=== PATIENT | female | born 1945 | race Caucasian/White ===

== ENCOUNTER 2019-04-09 14:27 | Emergency (ER) | payer MEDICARE ==
--- NOTE | 2019-04-09 16:55 | EDM.PDOC ---
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 Lower Back Pain Score (Numeric/FACES): 8 - Related Data Allergies Allergy/AdvReac Type Severity Reaction Status Date / Time No Known Allergies Allergy Verified 04/09/19 15:25 Home Meds: Home Meds Calcium Carb & Citrate/Vit D3 [Calcium + D3 ER Tablet] 600 mg PO BID 04/09/19 [ History] Etanercept [Enbrel] 50 mg SQ ASDIRECTED 04/09/19 [History] Losartan [Cozaar] 50 mg PO DAILY 04/09/19 [History] Methotrexate 4 tab PO Q7D 04/09/19 [History] Omeprazole 40 mg PO BIDAC 04/09/19 [History] Propranolol [Inderal] 40 mg PO BID 04/09/19 [History] Sennosides [Senna] 8.6 mg PO DAILY 04/09/19 [History] Past Medical History HEENT History: Reports: Impaired Vision Cardiovascular History: Reports: Hypertension Respiratory History: Reports: None Gastrointestinal History: Reports: Chronic Constipation, GERD Genitourinary History: Reports: None 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: , 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 Musculoskeletal History: Reports: RA Hematologic History: Reports: Blood Transfusion(s) Immunologic History: Reports: Other (See Below) Other Immunologic History: RA Oncologic (Cancer) History: Reports: Lung - Past Surgical History Head Surgeries/Procedures: Reports: None HEENT Surgical History: Reports: Other (See Below) Other HEENT Surgeries/Procedures: eye injections Cardiovascular Surgical History: Reports: None Respiratory Surgical History: Reports: Other (See Below) Other Respiratory Surgeries/Procedures: left lung removed 2010 Musculoskeletal Surgical History: Reports: Other (See Below) Other Musculoskeletal Surgeries/Procedures:: left leg, pelvis, Oncologic Surgical History: Reports: Lobectomy Dermatological Surgical History: Reports: None Social & Family History - Tobacco Use Smoking Status *Q: Former Smoker Used Tobacco, but Quit: Yes Month/Year Tobacco Last Used: 1987 - Caffeine Use Caffeine Use: Reports: Coffee - Recreational Drug Use Recreational Drug Use: No ED ROS GENERAL - Review of Systems Review Of Systems: See Below Constitutional: Reports: No Symptoms HEENT: Reports: No Symptoms Respiratory: Reports: No Symptoms Cardiovascular: Reports: No Symptoms Endocrine: Reports: No Symptoms GI/Abdominal: Reports: No Symptoms : Reports: No Symptoms Musculoskeletal: Reports: Back Pain Skin: Reports: No Symptoms Neurological: Reports: No Symptoms Psychiatric: Reports: No Symptoms Hematologic/Lymphatic: Reports: No Symptoms Immunologic: Reports: No Symptoms ED EXAM,LOWER BACK PAIN/INJURY - Physical Exam Exam: See Below Exam Limited By: No Limitations General Appearance: Alert Ears: Normal External Exam Nose: Normal Inspection Throat/Mouth: Normal Inspection Head: Atraumatic Neck: Normal Inspection Respiratory/Chest: No Respiratory Distress, Lungs Clear Cardiovascular: Regular Rate, Rhythm GI/Abdominal: Non-Tender (Female) Exam: Deferred Rectal (Female) Exam: Deferred Back Exam: Decreased Range of Motion, Muscle Spasm Extremities: Normal Inspection, Other (straight leg lifting) DTR - Lower Extremities: 2+: Knee (R), Knee (L) Course - Vital Signs Last Recorded V/S: Last Vital Signs Temp 35.9 C 04/09/19 15:26 Pulse 69 04/09/19 15:26 Resp 16 04/09/19 15:26 BP 173/59 H 04/09/19 15:26 Pulse Ox 96 04/09/19 15:26 Departure - Departure Time of Disposition: 17:00 Disposition: Home, Self-Care 01 Condition: Good Clinical Impression: Sciatica - Discharge Information Referrals: PCP,None [Primary Care Provider] - Forms: ED Department Discharge Additional Instructions: avoid lifting until better.
== END 2019-04-09 17:16 | disposition home or self-care (01) ==
LOC: JP.ED 14:27
DX: M54.40 Lumbago with sciatica, unspecified side (principal); I10 Essential (primary) hypertension; K21.9 Gastro-esophageal reflux disease without esophagitis; Z87.891 Personal history of nicotine dependence; Z79.899 Other long term (current) drug therapy
CPT/HCPCS: 99282; 99283

== ENCOUNTER 2020-04-06 08:24 | Emergency (ER) | payer MEDICARE ==
[2020-04-06] MEDS ORDERED: Ondansetron 4 MG/2 ML SDV IVPUSH ONE (08:32)
[2020-04-06] MEDS ORDERED: Aspirin 81 MG Tab.Chew PO ONE (08:32)
[2020-04-06] MEDS ORDERED: Famotidine 20 MG Tab PO ONE (08:34)
--- NOTE | 2020-04-06 08:49 | EDM.PDOC ---
ED HPI GENERAL MEDICAL PROBLEM - General Chief Complaint: Chest Pain Stated Complaint: CHEST PAIN, NUMB L ARM, VOMITING Time Seen by Provider: 04/06/20 08:45 Source of Information: Reports: Patient, Family History Limitations: Reports: No Limitations - History of Present Illness INITIAL COMMENTS - FREE TEXT/NARRATIVE: Pt woke up vomiting and she then developed severe burning in her upper abdoman and chest. She did have pain down the left arm. She has no cardiac histort. She has a history of hypertension. pt is sob. She has not hadf pain like this in the past. Onset: Today, Sudden Duration: Hour(s): Location: Reports: Chest Associated Symptoms: Reports: Chest Pain, Nausea/Vomiting, Weakness - Related Data Allergies Allergy/AdvReac Type Severity Reaction Status Date / Time No Known Allergies Allergy Verified 04/06/20 08:45 Home Meds: Home Meds Calcium Carb, Citrate/Vit D3 [Calcium + D3 ER Tablet] 600 mg PO BID 04/09/19 [History] Etanercept [Enbrel] 50 mg SQ ASDIRECTED 04/09/19 [History] Losartan [Cozaar] 50 mg PO DAILY 04/09/19 [History] Methotrexate 4 tab PO Q7D 04/09/19 [History] Omeprazole 40 mg PO BIDAC 04/09/19 [History] Propranolol [Inderal] 40 mg PO BID 04/09/19 [History] Past Medical History HEENT History: Reports: Impaired Vision Cardiovascular History: Reports: Hypertension Respiratory History: Reports: None Gastrointestinal History: Reports: Chronic Constipation, GERD Genitourinary History: Reports: None 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: , 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 Musculoskeletal History: Reports: RA Hematologic History: Reports: Blood Transfusion(s) Immunologic History: Reports: Other (See Below) Other Immunologic History: RA Oncologic (Cancer) History: Reports: Lung - Past Surgical History Head Surgeries/Procedures: Reports: None HEENT Surgical History: Reports: Other (See Below) Other HEENT Surgeries/Procedures: eye injections Cardiovascular Surgical History: Reports: None Respiratory Surgical History: Reports: Other (See Below) Other Respiratory Surgeries/Procedures: left lung removed 2010 Musculoskeletal Surgical History: Reports: Other (See Below) Other Musculoskeletal Surgeries/Procedures:: left leg, pelvis, Oncologic Surgical History: Reports: Lobectomy Dermatological Surgical History: Reports: None Social & Family History - Caffeine Use Caffeine Use: Reports: Coffee ED ROS GENERAL - Review of Systems Review Of Systems: See Below Constitutional: Reports: No Symptoms HEENT: Reports: No Symptoms Respiratory: Reports: Shortness of Breath Cardiovascular: Reports: Chest Pain, Lightheadedness Endocrine: Reports: No Symptoms GI/Abdominal: Reports: Nausea, Vomiting : Reports: No Symptoms Musculoskeletal: Reports: No Symptoms Skin: Reports: No Symptoms ED EXAM, GENERAL - Physical Exam Exam: See Below Free Text/Narrative:: pt woke up vomiting and she then developed burning chest pain and was sob. She had pain in the left arm. Exam Limited By: No Limitations General Appearance: Alert, Anxious, Moderate Distress, Other (pt is pale and is still uncomfortable. ) Ears: Normal TMs Nose: Normal Inspection Throat/Mouth: Normal Inspection Head: Atraumatic Neck: Normal Inspection Respiratory/Chest: No Respiratory Distress Cardiovascular: Regular Rate, Rhythm GI/Abdominal: Soft, Tender, Other (pt has epigastric tenderness) (Female) Exam: Deferred Rectal (Female) Exam: Deferred Back Exam: Normal Inspection Extremities: Normal Inspection Neurological: Alert, Oriented, Normal Cognition, Other (pt is very ) Psychiatric: Anxious Course - Vital Signs Last Recorded V/S: Last Vital Signs Temp 35.6 C L 04/06/20 08:30 Pulse 74 04/06/20 08:30 Resp 24 H 04/06/20 08:30 BP 174/83 H 04/06/20 08:30 Pulse Ox 95 04/06/20 08:30 - Orders/Labs/Meds Orders: Active Orders 24 hr Category Date Time Status EKG Documentation Completion [RC] ASDIRECTED Care 04/06/20 08:33 Active EKG Documentation Completion [RC] ASDIRECTED Care 04/06/20 08:34 Active Chest 1V Frontal [CR] Stat Exams 04/06/20 08:34 Ordered COMPREHENSIVE METABOLIC PN,CMP [CHEM] Urgent Lab 04/06/20 08:43 Received INR,PT,PROTHROMBIN TIME [COAG] Stat Lab 04/06/20 08:47 Ordered PTT,PARTIAL THROMBOPLSTIN TIME [COAG] Stat Lab 04/06/20 08:48 Ordered TROPONIN I [CHEM] Stat Lab 04/06/20 08:47 Ordered Nitroglycerin [Nitrostat] Med 04/06/20 08:33 Active 0.4 mg SL Q5M PRN EKG 12 Lead [EK] Routine Ther 04/06/20 08:33 Ordered EKG 12 Lead [EK] Routine Ther 04/06/20 08:33 Ordered Medication Orders Nitroglycerin (Nitrostat) 0.4 mg SL Q5M PRN PRN Reason: Chest Pain Labs: Laboratory Tests 04/06/20 Range/Units 08:43 WBC 12.3 H (4.5-11.0) K/uL RBC 4.48 (3.30-5.50) M/uL Hgb 14.9 (12.0-15.0) g/dL Hct 45.0 (36.0-48.0) % MCV 100 H (80-98) fL MCH 33 H (27-31) pg MCHC 33 (32-36) % Plt Count 220 (150-400) K/uL Neut % (Auto) 67 H (36-66) % Lymph % (Auto) 21 L (24-44) % Miller % (Auto) 10 H (2-6) % Eos % (Auto) 2 (2-4) % Baso % (Auto) 1 (0-1) % Meds: Medications Generic Name Dose Route Start Last Admin Trade Name Freq PRN Reason Stop Dose Admin Nitroglycerin 0.4 mg 04/06/20 08:33 Nitrostat SL Q5M PRN Chest Pain Discontinued Medications Generic Name Dose Route Start Last Admin Trade Name Freq PRN Reason Stop Dose Admin Aspirin 324 mg 04/06/20 08:32 Aspirin PO 04/06/20 08:33 ONETIME ONE Famotidine 20 mg 04/06/20 08:34 Pepcid PO 04/06/20 08:35 ONETIME ONE Ondansetron HCl 4 mg 04/06/20 08:32 Zofran IVPUSH 04/06/20 08:33 ONETIME ONE - Re-Assessments/Exams Free Text/Narrative Re-Assessment/Exam: 04/06/20 09:11 pt had a chest xray and the rt lung looks good. She was given 2 nitro with no relief of her pain. She was given dilaudid .5 iv and this will be repested on the way out. She was given a 4000 heparin bolus. She was given brilinta 180mg. Pt was given asa. Pt did continue to have pain so a second .5 of dilaudid will be given. Departure - Departure Time of Disposition: 09:15 Disposition: DC/Tfer to Acute Hospital 02 Reason for Transfer *Q: Primary PCI Indicated Condition: Fair Clinical Impression: Acute PA, lateral wall, Lung cancer Referrals: Hiwot Bishop MD [Primary Care Provider] - Forms: ED Department Discharge Care Plan Goals: transfer to [facility] per [facility]. Sepsis Event Note (ED) - Focused Exam Vital Signs: Vital Signs Temp Pulse Resp BP Pulse Ox 04/06/20 08:30 35.6 C L 74 24 H 174/83 H 95 - My Orders Last 24 Hours: My Active Orders 04/06/20 08:33 EKG Documentation Completion [RC] ASDIRECTED Nitroglycerin [Nitrostat] 0.4 mg SL Q5M PRN EKG 12 Lead [EK] Routine EKG 12 Lead [EK] Routine 04/06/20 08:34 EKG Documentation Completion [RC] ASDIRECTED Chest 1V Frontal [CR] Stat 04/06/20 08:43 COMPREHENSIVE METABOLIC PN,CMP [CHEM] Urgent - Assessment/Plan Last 24 Hours: My Active Orders 04/06/20 08:33 EKG Documentation Completion [RC] ASDIRECTED Nitroglycerin [Nitrostat] 0.4 mg SL Q5M PRN EKG 12 Lead [EK] Routine EKG 12 Lead [EK] Routine 04/06/20 08:34 EKG Documentation Completion [RC] ASDIRECTED Chest 1V Frontal [CR] Stat 04/06/20 08:43 COMPREHENSIVE METABOLIC PN,CMP [CHEM] Urgent
[2020-04-06] MEDS: Nitroglycerin 0.4 MG Tab.SL SL PRN ×2 (08:50→09:05)
[2020-04-06] MEDS ORDERED: Heparin Sodium 5,000 Units/ML Vial IVPUSH ONE (08:55)
[2020-04-06] MEDS ORDERED: Ticagrelor 90 MG Tab PO ONE (08:56)
[2020-04-06] MEDS ORDERED: Sodium Chloride 0.9% 1,000 ML IV SCH (09:00)
[2020-04-06] MEDS ORDERED: HYDROmorphone 0.5 MG/0.5 ML Syringe IVPUSH ONE ×2 (09:01→09:03)
[2020-04-06] MEDS ORDERED: HYDROmorphone 0.5 MG/0.5 ML Syringe ONE (09:02)
--- NOTE | 2020-04-06 09:13 | CR ---
CHEST: 04/06/2020 at 9:00 AM CLINICAL HISTORY:Chest pain COMPARISON:CT 10/11/2019 FINDINGS: Patient is status post the left pneumonectomy. There is shift of the mediastinum and right lung to the left. Appearance is similar to the September study. There is some minimal patchy density in the right infrahilar region. This may represent some scarring or atelectasis. There is a granuloma in the right upper lobe. IMPRESSION: Previous left pneumonectomy Minimal right infrahilar patchy density. This may be superimposition of the parietal structures. Minimal infiltrate is not excluded.
== END 2020-04-06 09:10 ==
LOC: JP.ED 08:24
DX: I21.9 Acute myocardial infarction, unspecified (principal); C34.90 Malignant neoplasm of unspecified part of unspecified bronchus or lung; I10 Essential (primary) hypertension; Z79.899 Other long term (current) drug therapy; K21.9 Gastro-esophageal reflux disease without esophagitis
CPT/HCPCS: 36415; 71045; 80053; 84484; 85025; 85610; 85730; 93005; 96374; 96375; 99285; A9270; J1170; J1644; J2405; J7030

== ENCOUNTER 2020-04-12 05:14 | Inpatient (IN) | payer MEDICARE ==
[2020-04-12] MEDS ORDERED: Acetaminophen 500 MG Tab PO ONE (05:41)
--- NOTE | 2020-04-12 05:43 | EDM.PDOC ---
ED HPI GENERAL MEDICAL PROBLEM - General Chief Complaint: Fever Stated Complaint: MEDICAL VIA [facility] Time Seen by Provider: 04/12/20 05:25 Source of Information: Reports: Patient, EMS, Family History Limitations: Reports: No Limitations - History of Present Illness INITIAL COMMENTS - FREE TEXT/NARRATIVE: 75-year-old female who was just discharged from the hospital yesterday after receiving 4 stents from acute treatment for an IL, only has a right lung due to lung cancer. She was doing well but ate some chocolate and a part of a sandwich last evening and did choke and cough a few times. Overnight she developed a fever and increasing shortness of breath and still has a dry cough. Ambulance was called because she spiked a fever, has nausea and vomiting and needed to be evaluated. No chest pain. Denies a headache or sore throat. EKG done by EMS in route shows no acute findings, there is some abnormality in polarity due to the significant shift of her anatomy due to the left pneumonectomy 10 years ago. Onset: Gradual (Symptoms developed over the last 6 to 7 hours) Associated Symptoms: Reports: Cough, Fever/Chills, Malaise, Nausea/Vomiting, Shortness of Breath, Weakness denies pain Pain Score (Numeric/FACES): 0 - Related Data Allergies Allergy/AdvReac Type Severity Reaction Status Date / Time No Known Allergies Allergy Verified 04/12/20 05:24 Home Meds: Home Meds Calcium Carb, Citrate/Vit D3 [Calcium + D3 ER Tablet] 600 mg PO BID 04/09/19 [History] Etanercept [Enbrel] 50 mg SQ ASDIRECTED 04/09/19 [History] Methotrexate 4 tab PO Q7D 04/09/19 [History] Omeprazole 40 mg PO BIDAC 04/09/19 [History] Metoprolol Succinate 25 mg PO DAILY 04/12/20 [History] Ticagrelor [Brilinta] 90 mg PO BID 04/12/20 [History] lisinopriL [Lisinopril] 5 mg PO DAILY 04/12/20 [History] Past Medical History HEENT History: Reports: Impaired Vision Cardiovascular History: Reports: Hypertension Respiratory History: Reports: None Other Respiratory History: states left lung removal Gastrointestinal History: Reports: Chronic Constipation, GERD Genitourinary History: Reports: None 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: , 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 Musculoskeletal History: Reports: RA Hematologic History: Reports: Blood Transfusion(s) Immunologic History: Reports: Other (See Below) Other Immunologic History: RA Oncologic (Cancer) History: Reports: Lung - Past Surgical History Head Surgeries/Procedures: Reports: None HEENT Surgical History: Reports: Other (See Below) Other HEENT Surgeries/Procedures: eye injections Cardiovascular Surgical History: Reports: None Respiratory Surgical History: Reports: Other (See Below) Other Respiratory Surgeries/Procedures: left lung removed 2010 Musculoskeletal Surgical History: Reports: Other (See Below) Other Musculoskeletal Surgeries/Procedures:: left leg, pelvis, Oncologic Surgical History: Reports: Lobectomy Dermatological Surgical History: Reports: None Social & Family History - Caffeine Use Caffeine Use: Reports: Coffee ED ROS GENERAL - Review of Systems Review Of Systems: See Below Constitutional: Reports: Fever, Chills, Malaise HEENT: Reports: No Symptoms Respiratory: Reports: Shortness of Breath, Cough. Denies: Sputum, Hemoptysis Cardiovascular: Denies: Palpitations Endocrine: Reports: Fatigue GI/Abdominal: Reports: Nausea, Vomiting. Denies: Abdominal Pain Skin: Reports: Diaphoresis Neurological: Denies: Headache ED EXAM, GENERAL - Physical Exam Exam: See Below Exam Limited By: No Limitations General Appearance: Alert, No Apparent Distress Eye Exam: Bilateral Eye: Normal Inspection Head: Atraumatic Respiratory/Chest: No Respiratory Distress, Other (Crackles at the right base, diffuse decreased breath sounds left side) Cardiovascular: Regular Rate, Rhythm, Tachycardia GI/Abdominal: Soft, Non-Tender Extremities: Normal Inspection Neurological: Alert, Oriented Psychiatric: Normal Affect, Normal Mood Skin Exam: Warm, Dry EKG INTERPRETATION Rhythm: NSR Rate (Beats/Min): 110 Course - Vital Signs Last Recorded V/S: Last Vital Signs Temp 99.2 F 04/12/20 16:00 Pulse 97 04/12/20 16:00 Resp 17 04/12/20 16:00 BP 97/45 L 04/12/20 16:00 Pulse Ox 96 04/12/20 16:00 - Orders/Labs/Meds Orders: Active Orders 24 hr Category Date Time Status CULTURE BLOOD [BC] Urgent Lab 04/12/20 05:55 Received CULTURE BLOOD [BC] Urgent Lab 04/12/20 05:55 Received Blood Culture x2 Reflex Set [OM.PC] Urgent Oth 04/12/20 05:37 Ordered Medication Orders Acetaminophen (Tylenol) 650 mg PO Q4H PRN PRN Reason: Pain (Mild 1-3)/fever Last Admin: 04/12/20 13:42 Dose: 650 mg Documented by: EUSEBIO Albuterol (Proventil Neb Soln) 2.5 mg NEB Q4H PRN PRN Reason: Shortness Of Breath/wheezing Lactated Ringer's (Ringers, Lactated) 1,000 mls @ 125 mls/hr IV ASDIRECTED [facility] Last Admin: 04/12/20 10:32 Dose: 125 mls/hr Documented by: EUSEBIO Meropenem 1 gm/ Sodium (Chloride) 100 mls @ 200 mls/hr IV Q8H [facility] Last Admin: 04/12/20 13:51 Dose: 200 mls/hr Documented by: EUSEBIO Clindamycin Phosphate 600 mg/ (Sodium Chloride) 54 mls @ 100 mls/hr IV Q6H [facility] Last Admin: 04/12/20 17:00 Dose: 100 mls/hr Documented by: Admin: 04/12/20 10:47 Dose: 100 mls/hr Documented by: EUSEBIO Lisinopril (Prinivil) 5 mg PO DAILY [facility] Last Admin: 04/12/20 10:55 Dose: 5 mg Documented by: EUSEBIO Metoprolol Succinate (Toprol Xl) 25 mg PO DAILY [facility] Last Admin: 04/12/20 10:56 Dose: 25 mg Documented by: EUSEBIO Ondansetron HCl (Zofran) 4 mg IV Q4H PRN PRN Reason: Nausea/Vomiting Pantoprazole Sodium (Protonix) 40 mg PO BIDAC [facility] Last Admin: 04/12/20 17:11 Dose: 40 mg Documented by: Admin: 04/12/20 10:55 Dose: 40 mg Documented by: EUSEBIO Polyethylene Glycol (Miralax) 17 gm PO DAILY PRN PRN Reason: Constipation Sodium Chloride (Saline Flush) 10 ml FLUSH ASDIRECTED PRN PRN Reason: Keep Vein Open Ticagrelor (Brilinta) 90 mg PO BID [facility] Last Admin: 04/12/20 10:55 Dose: 90 mg Documented by: EUSEBIO Labs: Laboratory Tests 04/12/20 04/12/20 04/12/20 Range/Units 05:51 05:55 05:55 WBC 18.1 H (4.5-11.0) K/uL RBC 3.67 (3.30-5.50) M/uL Hgb 12.3 D (12.0-15.0) g/dL Hct 36.8 (36.0-48.0) % MCV 100 H (80-98) fL MCH 34 H (27-31) pg MCHC 33 (32-36) % Plt Count 233 (150-400) K/uL Neut % (Auto) 81 H (36-66) % Lymph % (Auto) 4 L (24-44) % Pope % (Auto) 15 H (2-6) % Eos % (Auto) 0 L (2-4) % Baso % (Auto) 0 (0-1) % Sodium 135 L (140-148) mmol/L Potassium 4.2 (3.6-5.2) mmol/L Chloride 100 (100-108) mmol/L Carbon Dioxide 26 (21-32) mmol/L Anion Gap 13.2 (5.0-14.0) mmol/L BUN 17 D (7-18) mg/dL Creatinine 1.1 H (0.6-1.0) mg/dL Est Cr Clr Drug Dosing 43.63 mL/min Estimated GFR (MDRD) 49 L (>60) Glucose 131 H (74-106) mg/dL Lactic Acid 1.9 (0.4-2.0) mmol/L Calcium 8.4 L (8.5-10.1) mg/dL Total Bilirubin 1.1 H D (0.2-1.0) mg/dL AST 43 H (15-37) U/L ALT 29 (12-78) U/L Alkaline Phosphatase 83 (46-116) U/L Total Protein 6.7 (6.4-8.2) g/dL Albumin 3.4 (3.4-5.0) g/dL Globulin 3.3 (2.3-3.5) g/dL Albumin/Globulin Ratio 1.0 L (1.2-2.2) Meds: Medications Generic Name Dose Route Start Last Admin Trade Name Freq PRN Reason Stop Dose Admin Acetaminophen 650 mg 04/12/20 10:06 04/12/20 13:42 Tylenol PO 650 mg Q4H PRN Administration Pain (Mild 1-3)/fever Albuterol 2.5 mg 04/12/20 10:06 Proventil Neb Soln NEB Q4H PRN Shortness Of Breath/wheezing Lactated Ringer's 1,000 mls @ 125 mls/hr 04/12/20 10:06 04/12/20 10:32 Ringers, Lactated IV 125 mls/hr ASDIRECTED MICHELLE Administration Meropenem 1 gm/ Sodium 100 mls @ 200 mls/hr 04/12/20 14:00 04/12/20 13:51 Chloride IV 200 mls/hr Q8H MICHELLE Administration Clindamycin Phosphate 600 mg/ 54 mls @ 100 mls/hr 04/12/20 10:00 04/12/20 17:00 Sodium Chloride IV 100 mls/hr Q6H MICHELLE Administration Lisinopril 5 mg 04/12/20 11:00 04/12/20 10:55 Prinivil PO 5 mg DAILY MICHELLE Administration Metoprolol Succinate 25 mg 04/12/20 11:00 04/12/20 10:56 Toprol Xl PO 25 mg DAILY MICHELLE Administration Ondansetron HCl 4 mg 04/12/20 10:06 Zofran IV Q4H PRN Nausea/Vomiting Pantoprazole Sodium 40 mg 04/12/20 10:30 04/12/20 17:11 Protonix PO 40 mg BIDAC MICHELLE Administration Polyethylene Glycol 17 gm 04/12/20 10:06 Miralax PO DAILY PRN Constipation Sodium Chloride 10 ml 04/12/20 10:06 Saline Flush FLUSH ASDIRECTED PRN Keep Vein Open Ticagrelor 90 mg 04/12/20 10:30 04/12/20 10:55 Brilinta PO 90 mg BID MICHELLE Administration Discontinued Medications Generic Name Dose Route Start Last Admin Trade Name Freq PRN Reason Stop Dose Admin Acetaminophen 1,000 mg 04/12/20 05:41 04/12/20 05:44 Tylenol Extra Strength PO 04/12/20 05:42 1,000 mg ONETIME ONE Administration Enoxaparin Sodium 40 mg 04/12/20 11:00 Lovenox SUBCUT Q24H MICHELLE Sodium Chloride 1,000 mls @ 1,000 mls/hr 04/12/20 05:45 04/12/20 05:37 Normal Saline IV 1,000 mls/hr ASDIRECTED MICHELLE Administration Meropenem 1 gm/ Sodium 100 mls @ 200 mls/hr 04/12/20 05:51 04/12/20 05:58 Chloride IV 04/12/20 06:20 200 mls/hr ONETIME ONE Administration - Re-Assessments/Exams Free Text/Narrative Re-Assessment/Exam: 04/12/20 05:43 Patient arrived with a temperature of 105. IVs were started, she was given 1000 mg of oral acetaminophen. Blood cultures, CBC, CMP and a portable chest x-ray were obtained. 04/12/20 06:19 White count is now 18,000, chest x-ray shows what appears to be an early infiltrate in the right lower lobe. She started feeling better as her temperature started coming down. 1 g of meropenem IV was given after the blood cultures were drawn. 04/12/20 06:35 Electrolytes are normal, creatinine 1.1. Hydration will be continued, her temperature is down to 102.2. She is feeling better except for some mild nausea. Dr. Khan of the hospitalist service was consulted as to whether the patient can be treated here or needed to be transferred. Departure - Departure Time of Disposition: 10:29 Disposition: Admitted As Inpatient 67 Clinical Impression: Pneumonia Qualifiers: Pneumonia type: due to unspecified organism Laterality: right Lung location: lower lobe of lung Qualified Code(s): J18.9 - Pneumonia, unspecified organism Fever Qualifiers: Fever type: due to other condition Qualified Code(s): R50.81 - Fever presenting with conditions classified elsewhere - Discharge Information Sepsis Event Note (ED) - Focused Exam Vital Signs: Vital Signs Temp Pulse Resp BP Pulse Ox 04/12/20 06:57 102.1 F H 98 20 128/45 L 94 L 04/12/20 06:29 102.2 F H 107 H 18 130/50 L 96 04/12/20 06:19 101.8 F H 110 H 22 H 144/48 H 93 L 04/12/20 06:03 104.3 F H 101 H 24 H 144/48 H 95 04/12/20 05:50 105.0 F H 113 H 27 H 157/61 H 95 04/12/20 05:48 105.0 F H 113 H 27 H 157/61 H 95 - My Orders Last 24 Hours: My Active Orders 04/12/20 05:37 Blood Culture x2 Reflex Set [OM.PC] Urgent 04/12/20 05:55 CULTURE BLOOD [BC] Urgent CULTURE BLOOD [BC] Urgent - Assessment/Plan Last 24 Hours: My Active Orders 04/12/20 05:37 Blood Culture x2 Reflex Set [OM.PC] Urgent 04/12/20 05:55 CULTURE BLOOD [BC] Urgent CULTURE BLOOD [BC] Urgent
[2020-04-12] MEDS ORDERED: Sodium Chloride 0.9% 1,000 ML IV SCH (05:45)
[2020-04-12] MEDS ORDERED: Meropenem 1 GM in Sodium Chloride 0.9% 100 ML IV ONE (05:51)
--- NOTE | 2020-04-12 07:27 | PCM.HP.2 ---
H&P History of Present Illness - General Date of Service: 04/12/20 Admit Problem/Dx: Admission Diagnosis/Problem Admission Diagnosis/Problem Pneumonia Source of Information: Patient, Family, Provider, RN Notes Reviewed History Limitations: Reports: No Limitations - History of Present Illness Initial Comments - Free Text/Narative: Ms. Elliott is a 75-year-old woman who was admitted through the emergency department with fever, cough, shortness of breath, secondary to aspiration pneumonia of the right lung. 5 days ago she developed symptoms of chest pain and was seen in the emergency department, there was evidence of acute DE and she was flown to [facility] in [facility]. She was there for a period of 4 days and received angioplasty with 4 stents. She was discharged home yesterday and after arriving home had something to eat, unfortunately started co ughing and choking while eating with suspected aspiration. During the night she developed increased shortness of breath and marked temperature elevation. On evaluation in the emergency department she was noted to have a fever of 105 degrees and elevated white blood cell count of 18,000. Chest x-ray shows evidence of right lung infiltrate. Fever has come down since she has been in the emergency department she is also noted to be mildly tachycardic. She is status post left pneumonectomy done 9 years ago for lung carcinoma. denies pain Pain Score (Numeric/FACES): 0 - Related Data Allergies/Adverse Reactions: Allergies Allergy/AdvReac Type Severity Reaction Status Date / Time No Known Allergies Allergy Verified 04/12/20 05:24 Home Medications: Home Meds Calcium Carb, Citrate/Vit D3 [Calcium + D3 ER Tablet] 600 mg PO BID 04/09/19 [History] Etanercept [Enbrel] 50 mg SQ ASDIRECTED 04/09/19 [History] Methotrexate 4 tab PO Q7D 04/09/19 [History] Omeprazole 40 mg PO BIDAC 04/09/19 [History] Metoprolol Succinate 25 mg PO DAILY 04/12/20 [History] Ticagrelor [Brilinta] 90 mg PO BID 04/12/20 [History] lisinopriL [Lisinopril] 5 mg PO DAILY 04/12/20 [History] Past Medical History HEENT History: Reports: Impaired Vision Cardiovascular History: Reports: Hypertension Other Cardiovascular History: x4 cardiac stents placed Respiratory History: Reports: None Other Respiratory History: states left lung removal Gastrointestinal History: Reports: Chronic Constipation, GERD Genitourinary History: Reports: None COTTON BALER History: Reports: , Spontaneous Musculoskeletal History: Reports: RA Hematologic History: Reports: Blood Transfusion(s) Immunologic History: Reports: Other (See Below) Other Immunologic History: RA Oncologic (Cancer) History: Reports: Lung - Infectious Disease History Infectious Disease History: Reports: Chicken Pox, Measles, Mumps, Shingles - Past Surgical History Head Surgeries/Procedures: Reports: None HEENT Surgical History: Reports: Other (See Below) Other HEENT Surgeries/Procedures: eye injections Cardiovascular Surgical History: Reports: None Respiratory Surgical History: Reports: Other (See Below) Other Respiratory Surgeries/Procedures: left lung removed 2010 Musculoskeletal Surgical History: Reports: Other (See Below) Other Musculoskeletal Surgeries/Procedures:: left leg, pelvis, Oncologic Surgical History: Reports: Lobectomy Dermatological Surgical History: Reports: None Social & Family History - Tobacco Use Smoking Status *Q: Never Smoker - Caffeine Use Caffeine Use: Reports: Coffee - Recreational Drug Use Recreational Drug Use: No H&P Review of Systems - Review of Systems: Review Of Systems: See Below General: Reports: Fever, Chills, Malaise, Weakness, Fatigue HEENT: Reports: No Symptoms Pulmonary: Reports: Shortness of Breath, Cough. Denies: Wheezing, Pleuritic Chest Pain, Sputum, Hemoptysis Cardiovascular: Reports: Dyspnea on Exertion. Denies: Chest Pain, Palpitations, Orthopnea, PND, Edema, Lightheadedness Gastrointestinal: Reports: No Symptoms Genitourinary: Reports: No Symptoms Musculoskeletal: Reports: No Symptoms Skin: Reports: No Symptoms Psychiatric: Reports: No Symptoms Neurological: Reports: No Symptoms Hematologic/Lymphatic: Reports: No Symptoms Immunologic: Reports: No Symptoms Exam - Exam Exam: See Below - Vital Signs Vital Signs: Last Vital Signs Temp 102.1 F H 04/12/20 06:57 Pulse 98 04/12/20 06:57 Resp 20 04/12/20 06:57 BP 128/45 L 04/12/20 06:57 Pulse Ox 94 L 04/12/20 06:57 Weight: 138 lb - Exam Quality Assessment: Supplemental Oxygen, DVT Prophylaxis General: Alert, Oriented, Cooperative, Mild Distress HEENT: Conjunctiva Clear, Hearing Intact, Mucosa Moist & [place], Normal Nasal Se ptum, Posterior Pharynx Clear, Pupils Equal Neck: Supple, Trachea Midline, +2 Carotid Pulse wo Bruit Lungs: Clear to Auscultation, Normal Respiratory Effort, Decreased Breath Sounds (Left lung field) Cardiovascular: Regular Rhythm, Normal S1, Normal S2, Tachycardia. No: Systolic Murmur, Diastolic Murmur GI/Abdominal Exam: Soft, Non-Tender, No Organomegaly, No Distention Back Exam: Normal Inspection, Full Range of Motion Extremities: Non-Tender, No Pedal Edema Skin: Warm, Dry, Intact Neurological: Cranial Nerves Intact, Strength Equal Bilateral, Normal Speech, Normal Tone, Sensation Intact. No: Focal Deficit Neuro Extensive - Mental Status: Alert, Oriented x3, Normal Mood/Affect, Normal Cognition, Memory Intact - Patient Data Lab Results Last 24 hrs: Laboratory Results - last 24 hr 04/12/20 04/12/20 04/12/20 Range/Units 05:51 05:55 05:55 WBC 18.1 H (4.5-11.0) K/uL RBC 3.67 (3.30-5.50) M/uL Hgb 12.3 D (12.0-15.0) g/dL Hct 36.8 (36.0-48.0) % MCV 100 H (80-98) fL MCH 34 H (27-31) pg MCHC 33 (32-36) % Plt Count 233 (150-400) K/uL Neut % (Auto) 81 H (36-66) % Lymph % (Auto) 4 L (24-44) % [place] % (Auto) 15 H (2-6) % Eos % (Auto) 0 L (2-4) % Baso % (Auto) 0 (0-1) % Sodium 135 L (140-148) mmol/L Potassium 4.2 (3.6-5.2) mmol/L Chloride 100 (100-108) mmol/L Carbon Dioxide 26 (21-32) mmol/L Anion Gap 13.2 (5.0-14.0) mmol/L BUN 17 D (7-18) mg/dL Creatinine 1.1 H (0.6-1.0) mg/dL Est Cr Clr Drug Dosing 43.63 mL/min Estimated GFR (MDRD) 49 L (>60) Glucose 131 H (74-106) mg/dL Lactic Acid 1.9 (0.4-2.0) mmol/L Calcium 8.4 L (8.5-10.1) mg/dL Total Bilirubin 1.1 H D (0.2-1.0) mg/dL AST 43 H (15-37) U/L ALT 29 (12-78) U/L Alkaline Phosphatase 83 (46-116) U/L Total Protein 6.7 (6.4-8.2) g/dL Albumin 3.4 (3.4-5.0) g/dL Globulin 3.3 (2.3-3.5) g/dL Albumin/Globulin Ratio 1.0 L (1.2-2.2) Result Diagrams: 04/12/20 05:55 04/12/20 05:55 Sepsis Event Note - Evaluation Sepsis Screening Result: Possible Severe Sepsis Risk - Focused Exam Vital Signs: Vital Signs Temp Pulse Resp BP Pulse Ox 04/12/20 06:57 102.1 F H 98 20 128/45 L 94 L 04/12/20 06:29 102.2 F H 107 H 18 130/50 L 96 04/12/20 06:19 101.8 F H 110 H 22 H 144/48 H 93 L 04/12/20 06:03 104.3 F H 101 H 24 H 144/48 H 95 04/12/20 05:50 105.0 F H 113 H 27 H 157/61 H 95 04/12/20 05:48 105.0 F H 113 H 27 H 157/61 H 95 Date Exam was Performed: 04/12/20 Time Exam was Performed: 07:57 *Q Meaningful Use (ADM) - VTE Risk Assess *Q Each Risk Factor Represents 1 Point: Serious lung disease including pneumonia Total Score 1 Point Risk Factors: 1 Each Risk Factor Represents 2 Points: Age 60 - 74 Years Total Score 2 Point Risk Factors: 2 Each Risk Factor Represents 3 Points: None Total Score 3 Point Risk Factors: 0 Each Risk Factor Represents 5 Points: None Total Score 5 Point Risk Factors: 0 Venous Thromboembolism Risk Factor Score *Q: 3 Problem List Initiated/Reviewed/Updated: Yes Orders Last 24hrs: Active Orders 24 hr Category Date Time Status Patient Status Manage Transfer [TRANSFER] Routine ADT 04/12/20 07:21 Active Chest 1V Frontal [CR] Stat Exams 04/12/20 05:38 Taken CULTURE BLOOD [BC] Urgent Lab 04/12/20 05:55 Received CULTURE BLOOD [BC] Urgent Lab 04/12/20 05:55 Received Sodium Chloride 0.9% [Normal Saline] 1,000 ml Med 04/12/20 05:45 Active IV ASDIRECTED Blood Culture x2 Reflex Set [OM.PC] Urgent Oth 04/12/20 05:37 Ordered Resuscitation Status Routine Resus Stat 04/12/20 07:22 Ordered Medication Orders Sodium Chloride (Normal Saline) 1,000 mls @ 1,000 mls/hr IV ASDIRECTED MICHELLE Last Admin: 04/12/20 05:37 Dose: 1,000 mls/hr Documented by: JORDANA Assessment/Plan Comment:: ASSESSMENT AND PLAN ASPIRATION PNEUMONIA-symptoms developed last night after she was noted to be coughing and choking while eating. During the night developed high fever with shortness of breath. There is evidence of sepsis with tachycardia. She is received vigorous IV fluid replacement while in the emergency department. Chest x-ray shows evidence of right lung infiltrate, she is status post left pneumonectomy done for lung cancer 9 years ago. White blood cell count is elevated. Fever and shortness of breath have improved while in the emergency department. She is immune compromised secondary to underlying use of methotrexate and Enbrel. -Blood and sputum cultures pending -IV fluids given per sepsis protocol -IV meropenem and clindamycin pending culture results STATUS POST MYOCARDIAL INFARCTION-angioplasty with 4 stent placements in the past few days at [facility] in [facility] -Continue outpatient medications including Brilinta RHEUMATOID ARTHRITIS -Hold Enbrel and methotrexate MAINTENANCE ISSUES -DVT prophylaxis; Lovenox 40 mg subcu daily -GI prophylaxis; continue outpatient PPI therapy -Baker catheter; not indicated -Nutrition; 2 g sodium diet -Nicotine dependence; not required CODE STATUS-FULL CODE ADMISSION STATUS-patient will be admitted to inpatient status, expect at least a 2 night hospital stay for evaluation and management of problems as outlined above. At the time of this admission I do not reasonably expected evaluation and management of this problem will require more than a 96 hour hospital stay. DISPOSITION-anticipate discharge to home after the hospital stay. PRIMARY CARE PROVIDER-Dr. Bishop - Mortality Measure Prognosis:: Good
--- NOTE | 2020-04-12 09:11 | CR ---
CHEST: Portable 04/12/2020 at 6:01 AM CLINICAL HISTORY:Cough and fever COMPARISON:04/06/2020 FINDINGS: Patient has undergone previous left pneumonectomy. There is a shift of the mediastinum and right lung to the left. Pattern is similar to prior study. There is persistent patchy density in the right infrahilar region. This may be increased slightly since prior study. Some of this difference is technical. Impression: Previous left pneumonectomy Persistent patchy right infrahilar infiltrate with a slight increase in density when compared to prior study
[2020-04-12] MEDS ORDERED: Albuterol 0.083% 2.5 MG/3 ML Neb Soln NEB PRN (10:06)
[2020-04-12] MEDS ORDERED: Sodium Chloride 0.9% 10 ML Syringe FLUSH PRN (10:06)
[2020-04-12] MEDS ORDERED: Polyethylene Glycol 3350 Powder 17 GM Packet PO PRN (10:06)
[2020-04-12] MEDS ORDERED: Ondansetron 4 MG/2 ML SDV IV PRN (10:06)
[2020-04-12] MEDS: Lactated Ringers 1,000 ML IV SCH ×2 (10:32→20:15)
[2020-04-12] MEDS: Lisinopril 5 MG Tab PO SCH (10:55)
[2020-04-12] MEDS: Pantoprazole 40 MG Tab.CR PO SCH ×2 (10:55→17:11)
[2020-04-12] MEDS: Ticagrelor 90 MG Tab PO SCH ×2 (10:55→22:02)
[2020-04-12] MEDS: Metoprolol Succinate 25 MG Tab.ER PO SCH (10:56)
[2020-04-12] MEDS ORDERED: Enoxaparin 40 MG/0.4 ML Syringe SUBCUT SCH (11:00)
[2020-04-12] MEDS: Acetaminophen 325 MG Tab PO PRN ×2 (13:42→23:24)
[2020-04-12] MEDS: Meropenem 1 GM in Sodium Chloride 0.9% 100 ML IV SCH ×2 (13:51→22:41)
[2020-04-13] MEDS: Lactated Ringers 1,000 ML IV SCH (05:38)
[2020-04-13] MEDS: Meropenem 1 GM in Sodium Chloride 0.9% 100 ML IV SCH (05:38)
[2020-04-13] MEDS: Pantoprazole 40 MG Tab.CR PO SCH ×2 (08:27→17:24)
[2020-04-13] MEDS: Ticagrelor 90 MG Tab PO SCH ×2 (09:05→20:45)
[2020-04-13] MEDS: Lisinopril 5 MG Tab PO SCH (09:05)
[2020-04-13] MEDS: Acetaminophen 325 MG Tab PO PRN ×2 (09:05→20:45)
[2020-04-13] MEDS: Metoprolol Succinate 25 MG Tab.ER PO SCH (09:07)
--- NOTE | 2020-04-13 09:14 | PCM.PN ---
- General Info Date of Service: 04/13/20 Subjective Update: No acute events overnight. Low-grade temperature elevation but no high fevers. Mild cough but no significant dyspnea. She has not required supplemental oxygen. Heart rate and blood pressure have been stable. She remains weak and has not been out of bed. Not much of an appetite. White blood cell count is better. Blood cultures negative so far. Functional Status: Reports: Pain Controlled - Review of Systems General: Reports: Fever Pulmonary: Reports: Shortness of Breath - Patient Data Vitals - Most Recent: Last Vital Signs Temp 37.8 C 04/13/20 09:05 Pulse 108 H 04/13/20 09:07 Resp 20 04/13/20 06:00 BP 164/63 H 04/13/20 09:07 Pulse Ox 98 04/13/20 06:00 Weight - Most Recent: 67.245 kg I&O - Last 24 Hours: Intake & Output 04/12/20 04/13/20 04/13/20 22:59 06:59 14:59 Intake Total 886 1987 Output Total 600 450 Balance 286 1537 Lab Results Last 24 Hours: Laboratory Results - last 24 hr 04/12/20 04/12/20 04/13/20 Range/Units 08:45 10:06 05:10 WBC 13.0 H (4.5-11.0) K/uL RBC 3.09 L (3.30-5.50) M/uL Hgb 10.0 L D (12.0-15.0) g/dL Hct 31.6 L (36.0-48.0) % MCV 102 H (80-98) fL MCH 32 H (27-31) pg MCHC 32 (32-36) % Plt Count 231 (150-400) K/uL Neut % (Auto) 65 (36-66) % Lymph % (Auto) 15 L (24-44) % [place] % (Auto) 19 H (2-6) % Eos % (Auto) 0 L (2-4) % Baso % (Auto) 1 (0-1) % Sodium (140-148) mmol/L Potassium (3.6-5.2) mmol/L Chloride (100-108) mmol/L Carbon Dioxide (21-32) mmol/L Anion Gap (5.0-14.0) mmol/L BUN (7-18) mg/dL Creatinine (0.6-1.0) mg/dL Est Cr Clr Drug Dosing mL/min Estimated GFR (MDRD) (>60) Glucose (74-106) mg/dL Calcium (8.5-10.1) mg/dL Magnesium (1.8-2.4) mg/dL Urine Color Yellow (YELLOW) Urine Appearance Clear (CLEAR) Urine pH 7.0 (5.0-8.0) Ur Specific [place] 1.020 (1.008-1.030) Urine Protein Negative (NEGATIVE) mg/dL Urine Glucose (UA) Negative (NEGATIVE) mg/dL Urine Ketones 15 H (NEGATIVE) mg/dL Urine Occult Blood Negative (NEGATIVE) Urine Nitrite Negative (NEGATIVE) Urine Bilirubin Negative (NEGATIVE) Urine Urobilinogen 4.0 H (0.2-1.0) EU/dL Ur Leukocyte Esterase Negative (NEGATIVE) Urine RBC 0-5 (0-5) Urine WBC 0-5 (0-5) Ur Epithelial Cells Few Amorphous Sediment Not seen Urine Bacteria Not seen Urine Mucus Not seen SARS Virus RNA (PCR) Negative (NEGATIVE) 04/13/20 Range/Units 05:10 WBC (4.5-11.0) K/uL RBC (3.30-5.50) M/uL Hgb (12.0-15.0) g/dL Hct (36.0-48.0) % MCV (80-98) fL MCH (27-31) pg MCHC (32-36) % Plt Count (150-400) K/uL Neut % (Auto) (36-66) % Lymph % (Auto) (24-44) % [place] % (Auto) (2-6) % Eos % (Auto) (2-4) % Baso % (Auto) (0-1) % Sodium 141 (140-148) mmol/L Potassium 3.7 (3.6-5.2) mmol/L Chloride 106 (100-108) mmol/L Carbon Dioxide 27 (21-32) mmol/L Anion Gap 8.3 (5.0-14.0) mmol/L BUN 11 (7-18) mg/dL Creatinine 1.0 (0.6-1.0) mg/dL Est Cr Clr Drug Dosing 48.00 mL/min Estimated GFR (MDRD) 54 L (>60) Glucose 98 (74-106) mg/dL Calcium 8.1 L (8.5-10.1) mg/dL Magnesium 2.1 (1.8-2.4) mg/dL Urine Color (YELLOW) Urine Appearance (CLEAR) Urine pH (5.0-8.0) Ur Specific [place] (1.008-1.030) Urine Protein (NEGATIVE) mg/dL Urine Glucose (UA) (NEGATIVE) mg/dL Urine Ketones (NEGATIVE) mg/dL Urine Occult Blood (NEGATIVE) Urine Nitrite (NEGATIVE) Urine Bilirubin (NEGATIVE) Urine Urobilinogen (0.2-1.0) EU/dL Ur Leukocyte Esterase (NEGATIVE) Urine RBC (0-5) Urine WBC (0-5) Ur Epithelial Cells Amorphous Sediment Urine Bacteria Urine Mucus SARS Virus RNA (PCR) (NEGATIVE) Mauri Results Last 24 Hours: Microbiology 04/12/20 05:55 Aerobic Blood Culture - Preliminary Blood - Venous NO GROWTH AFTER 1 DAY Anaerobic Blood Culture - Preliminary NO GROWTH AFTER 1 DAY 04/12/20 05:55 Aerobic Blood Culture - Preliminary Blood - Venous - Lab Draw NO GROWTH AFTER 1 DAY Anaerobic Blood Culture - Preliminary NO GROWTH AFTER 1 DAY Med Orders - Current: Current Medications Acetaminophen (Tylenol) 650 mg PO Q4H PRN PRN Reason: Pain (Mild 1-3)/fever Last Admin: 04/13/20 09:05 Dose: 650 mg Documented by: Albuterol (Proventil Neb Soln) 2.5 mg NEB Q4H PRN PRN Reason: Shortness Of Breath/wheezing Lactated Ringer's (Ringers, Lactated) 1,000 mls @ 125 mls/hr IV ASDIRECTED [facility] Last Admin: 04/13/20 05:38 Dose: 125 mls/hr Documented by: Meropenem 1 gm/ Sodium (Chloride) 100 mls @ 200 mls/hr IV Q8H [facility] Last Admin: 04/13/20 05:38 Dose: 200 mls/hr Documented by: Lisinopril (Prinivil) 5 mg PO DAILY [facility] Last Admin: 04/13/20 09:05 Dose: 5 mg Documented by: Metoprolol Succinate (Toprol Xl) 25 mg PO DAILY [facility] Last Admin: 04/13/20 09:07 Dose: 25 mg Documented by: Ondansetron HCl (Zofran) 4 mg IV Q4H PRN PRN Reason: Nausea/Vomiting Last Admin: 04/12/20 23:21 Dose: 4 mg Documented by: Pantoprazole Sodium (Protonix) 40 mg PO BIDAC [facility] Last Admin: 04/13/20 08:27 Dose: 40 mg Documented by: Polyethylene Glycol (Miralax) 17 gm PO DAILY PRN PRN Reason: Constipation Sodium Chloride (Saline Flush) 10 ml FLUSH ASDIRECTED PRN PRN Reason: Keep Vein Open Ticagrelor (Brilinta) 90 mg PO BID [facility] Last Admin: 04/13/20 09:05 Dose: 90 mg Documented by: Discontinued Medications Acetaminophen (Tylenol Extra Strength) 1,000 mg PO ONETIME ONE Stop: 04/12/20 05:42 Last Admin: 04/12/20 05:44 Dose: 1,000 mg Documented by: Enoxaparin Sodium (Lovenox) 40 mg SUBCUT Q24H [facility] Sodium Chloride (Normal Saline) 1,000 mls @ 1,000 mls/hr IV ASDIRECTED [facility] Last Admin: 04/12/20 05:37 Dose: 1,000 mls/hr Documented by: Meropenem 1 gm/ Sodium (Chloride) 100 mls @ 200 mls/hr IV ONETIME ONE Stop: 04/12/20 06:20 Last Admin: 04/12/20 05:58 Dose: 200 mls/hr Documented by: Clindamycin Phosphate 600 mg/ (Sodium Chloride) 54 mls @ 100 mls/hr IV Q6H [facility] Last Admin: 04/13/20 04:09 Dose: 100 mls/hr Documented by: - Exam Quality Assessment: No: Supplemental Oxygen General: Alert, Oriented, Cooperative, No Acute Distress Lungs: Normal Respiratory Effort, Crackles (few right lower lung anteriorly ) Cardiovascular: Regular Rate, Regular Rhythm GI/Abdominal Exam: Soft, No Distention Extremities: No Pedal Edema. No: Increased Warmth Skin: Warm, Dry, Ecchymosis (right medial calf ) Psy/Mental Status: Alert, Normal Affect Sepsis Event Note - Evaluation Sepsis Screening Result: No Definite Risk - Focused Exam Vital Signs: Vital Signs Temp Temp Pulse Resp BP BP Pulse Ox 04/13/20 09:07 108 H 164/63 H 04/13/20 09:05 37.8 C 164/63 H 04/13/20 06:00 36.3 C 20 98 04/13/20 04:00 14 104/42 L 98 04/13/20 02:00 16 108/38 L 93 L 04/13/20 00:00 36.7 C 18 123/34 L 96 04/12/20 22:00 25 H 138/51 L 94 L Date Exam was Performed: 04/13/20 Time Exam was Performed: 14:32 - Problem List Review Problem List Initiated/Reviewed/Updated: Yes - My Orders Last 24 Hours: My Active Orders 04/12/20 10:06 UA W/MICROSCOPIC [URIN] Routine 04/12/20 10:25 Antiembolic Devices [RC] .Routine SCD [Sequential Compression Device] [OM.PC] Routine 04/13/20 09:11 Convert IV to Saline Lock [OM.PC] Routine 04/13/20 09:12 Transfer Patient (Change bed) [ADT] Routine 04/13/20 09:15 Levofloxacin/Dextrose 5%-Water [Levaquin in D5W 750 MG/150 ML] 750 mg Premix Bag 1 bag IV Q24H - Plan Plan:: ASSESSMENT AND PLAN ASPIRATION PNEUMONIA, suspected-chronic immunosuppression because of her rheumatoid arthritis. Clinically doing fairly well other than weakness and no appetite. Cultures negative so far. -Change antibiotics to levofloxacin -Saline lock IV -Follow-up cultures -Supplement oxygen if needed CAD, STATUS POST MYOCARDIAL INFARCTION-angioplasty with 4 stent placements 1 week ago. No chest pain and vitals are stable. -Continue outpatient medications including Brilinta RHEUMATOID ARTHRITIS -Hold Enbrel and methotrexate MAINTENANCE ISSUES -DVT prophylaxis; Lovenox 40 mg subcu daily -GI prophylaxis; continue outpatient PPI therapy -Baker catheter; not indicated -Nutrition; 2 g sodium diet DISPOSITION-anticipate discharge to home after the hospital stay. Maxx Velazquez MD
[2020-04-13] MEDS ORDERED: Levofloxacin/Dextrose 5%-Water 750 MG in Premix Bag 1 BAG IV SCH (09:30)
[2020-04-13] MEDS ORDERED: Levofloxacin 500 MG Tab PO ONE (11:45)
[2020-04-13] MEDS ORDERED: Ondansetron 4 MG Tab.DIS PO PRN (16:26)
[2020-04-13] MEDS ORDERED: Melatonin 3 MG Tab PO PRN (22:48)
[2020-04-13] MEDS ORDERED: diphenhydrAMINE 25 MG Cap PO PRN (22:49)
[2020-04-14] MEDS: Pantoprazole 40 MG Tab.CR PO SCH (07:16)
[2020-04-14] MEDS: Lisinopril 5 MG Tab PO SCH (08:26)
[2020-04-14] MEDS: Ticagrelor 90 MG Tab PO SCH (08:26)
[2020-04-14] MEDS: Metoprolol Succinate 25 MG Tab.ER PO SCH (08:26)
[2020-04-14] MEDS ORDERED: Levofloxacin 250 MG Tab PO ONE (10:00)
--- NOTE | 2020-04-14 10:02 | PCM.DCSUM1 ---
Discharge Summary - Hospital Course Brief History: 75-year-old female with rheumatoid arthritis and recent acute myocardial infarction with stenting who presented with shortness of breath and fever. She was admitted for management of a right lower lobe pneumonia. Diagnosis: Stroke: No - Discharge Data Discharge Date: 04/14/20 Discharge Disposition: Home, Self-Care 01 Condition: Good - Referral to Home Health Primary Care Physician: Hiwot Bishop MD - Discharge Diagnosis/Problem(s) (1) Pneumonia SNOMED Code(s): 842648271 ICD Code: J18.9 - PNEUMONIA, UNSPECIFIED ORGANISM Status: Acute Qualifiers: Pneumonia type: due to unspecified organism Laterality: right Lung location: lower lobe of lung Qualified Code(s): J18.9 - Pneumonia, unspecified organism (2) Coronary artery disease SNOMED Code(s): 17871453 ICD Code: I25.10 - ATHSCL HEART DISEASE OF [place] CORONARY ARTERY W/O ANG PCTRS Status: Chronic Qualifiers: Coronary Disease-Associated Artery/Lesion type: [place] artery [place] vs. transplanted heart: [place] heart Associated angina: without angina Qualified Code(s): I25.10 - Atherosclerotic heart disease of [place] coronary artery without angina pectoris (3) Rheumatoid arthritis SNOMED Code(s): 45595179 ICD Code: M06.9 - RHEUMATOID ARTHRITIS, UNSPECIFIED Status: Chronic Qualifiers: Rheumatoid arthritis location: unspecified site Rheumatoid factor presence: unspecified presence Qualified Code(s): M06.9 - Rheumatoid arthritis, unspecified - Patient Summary/Data Consults: Consultations 04/13/20 11:35 PT Evaluation and Treatment [CONS] Routine Please Evaluate and Treat. PT Reason for Consult: Strengthening This query below is only for informational purposes and is not editable. Admission Diagnosis/Problem: Pneumonia Hospital Course: Annette presented to the emergency room with shortness of breath and feverrol After a coughing episode several hours earlier. Work-up in the emergency room was suggestive of a right lower lobe pneumonia and leukocytosis. She was very weak. She had recently underwent angioplasty for an acute coronary syndrome. She was started on broad-spectrum antibiotics and admitted to the intensive care unit. Initially she was tachycardic with evidence for sepsis but this resolved fairly quickly. With her fairly rapid improvement we did de-escalate antibiotics to levofloxacin the following morning. Symptomatically she was doing somewhat better with less shortness of breath and no impressive cough. She did have some ongoing but fortunately low-grade fevers. White count was better. Cultures were all negative. Over the next 24 hours we saw further improvement in her clinical status. Temperatures have been improving. Her strength and appetite have been improving. Clinically she is feeling well and feels like she is safe to go home at this point. Plan is for her to be on levofloxacin for 4 more days after hospital discharge. She will slowly increase her activity back towards normal. No changes were made to her cardiac medications that had recently been prescribed. She did not have any chest pain or cardiac issues during the hospital stay. - Patient Instructions Diet: Heart Healthy Diet Activity: As Tolerated Showering/Bathing: May Shower Notify Provider of: Fever, Increased Pain Other/Special Instructions: 1. You were in the hospital for management of right lower lung pneumonia. Your condition has been improving with antibiotic therapy. We did not determine a causative bacteria for the infection. I do recommend ongoing antibiotic therapy. Please take levofloxacin 750 mg once daily around noon. Your first dose outside of the hospital will be due tomorrow since you had one just prior to leaving today. Often times pneumonia causes weakness and you will have to slowly increase your activity back towards normal over the next 1 to 2 weeks. 2. Continue your usual home medications as previously prescribed. 3. Follow up with Dr Bishop in 1-2 weeks. 4. Seek medical attention if you develop recurrent chest pain, fever greater than 101, shaking chills or if you have shortness of breath that limits your activities of daily living. - Discharge Plan *PRESCRIPTION DRUG MONITORING PROGRAM REVIEWED*: Not Applicable *COPY OF PRESCRIPTION DRUG MONITORING REPORT IN PATIENT MELONY: Not Applicable Prescriptions/Med Rec: Levofloxacin 750 mg PO PCLUNCH #4 tablet Home Medications: Home Meds Calcium Carb, Citrate/Vit D3 [Calcium + D3 ER Tablet] 600 mg PO BID 04/09/19 [History] Etanercept [Enbrel] 50 mg SQ ASDIRECTED 04/09/19 [History] Methotrexate 4 tab PO Q7D 04/09/19 [History] Omeprazole 40 mg PO BIDAC 04/09/19 [History] Metoprolol Succinate 25 mg PO DAILY 04/12/20 [History] Ticagrelor [Brilinta] 90 mg PO BID 04/12/20 [History] lisinopriL [Lisinopril] 5 mg PO DAILY 04/12/20 [History] Levofloxacin 750 mg PO PCLUNCH #4 tablet 04/14/20 [Rx] Oxygen Therapy Mode: Room Air Patient Handouts: Levofloxacin tablets, Community-Acquired Pneumonia, Adult Referrals: Hiwot Bishop MD [Primary Care Provider] - (1-2 weeks - f/u hospital stays for both acute myocardial infarction and pneumonia) - Discharge Summary/Plan Comment DC Time >30 min.: No - Patient Data Vitals - Most Recent: Last Vital Signs Temp 36.9 C 04/14/20 08:00 Pulse 94 04/14/20 08:26 Resp 14 04/14/20 08:00 BP 155/60 H 04/14/20 08:26 Pulse Ox 96 04/14/20 08:00 Weight - Most Recent: 67.245 kg I&O - Last 24 hours: Intake & Output 04/13/20 04/14/20 04/14/20 22:59 06:59 14:59 Intake Total 442 480 Output Total 600 1000 450 Balance -158 -520 -450 TYE Results - Last 24 hrs: Microbiology 04/13/20 10:06 Gram Stain - Final Sputum - Expectorated Respiratory Culture - Preliminary NORMAL RESPIRATORY SUPRIYA 1 DAY 04/12/20 05:55 Aerobic Blood Culture - Preliminary Blood - Venous - Lab Draw NO GROWTH AFTER 2 DAYS Anaerobic Blood Culture - Preliminary NO GROWTH AFTER 2 DAYS 04/12/20 05:55 Aerobic Blood Culture - Preliminary Blood - Venous NO GROWTH AFTER 2 DAYS Anaerobic Blood Culture - Preliminary NO GROWTH AFTER 2 DAYS Med Orders - Current: Current Medications Acetaminophen (Tylenol) 650 mg PO Q4H PRN PRN Reason: Pain (Mild 1-3)/fever Last Admin: 04/13/20 20:45 Dose: 650 mg Documented by: Albuterol (Proventil Neb Soln) 2.5 mg NEB Q4H PRN PRN Reason: Shortness Of Breath/wheezing Last Admin: 04/13/20 20:45 Dose: 2.5 mg Documented by: Diphenhydramine HCl (Benadryl) 25 mg PO Q4H PRN PRN Reason: Itching Last Admin: 04/13/20 23:13 Dose: 25 mg Documented by: Lisinopril (Prinivil) 5 mg PO DAILY MICHELLE Last Admin: 04/14/20 08:26 Dose: 5 mg Documented by: Melatonin (Melatonin) 9 mg PO BEDTIME PRN PRN Reason: Insomnia Last Admin: 04/13/20 23:13 Dose: 9 mg Documented by: Metoprolol Succinate (Toprol Xl) 25 mg PO DAILY ON LICENSE OF [facility] Last Admin: 04/14/20 08:26 Dose: 25 mg Documented by: Ondansetron HCl (Zofran) 4 mg IV Q4H PRN PRN Reason: Nausea/Vomiting Last Admin: 04/12/20 23:21 Dose: 4 mg Documented by: Ondansetron HCl (Zofran Odt) 4 mg PO Q4H PRN PRN Reason: Nausea/Vomiting Last Admin: 04/13/20 16:33 Dose: 4 mg Documented by: Pantoprazole Sodium ([facility]ix) [facility] Last Admin: 04/14/20 07:16 Dose: 40 mg Documented by: Polyethylene Glycol (Miralax) 17 gm PO DAILY PRN PRN Reason: Constipation Sodium Chloride (Saline Flush) 10 ml FLUSH ASDIRECTED PRN PRN Reason: Keep Vein Open Ticagrelor (Brilinta) 90 mg PO BID ON LICENSE OF [facility] Last Admin: 04/14/20 08:26 Dose: 90 mg Documented by: Discontinued Medications Acetaminophen (Tylenol Extra Strength) 1,000 mg PO ONETIME ONE Stop: 04/12/20 05:42 Last Admin: 04/12/20 05:44 Dose: 1,000 mg Documented by: Enoxaparin Sodium (Lovenox) 40 mg SUBCUT Q24H ON LICENSE OF [facility] Sodium Chloride (Normal Saline) 1,000 mls @ 1,000 mls/hr IV ASDIRECTED ON LICENSE OF [facility] Last Admin: 04/12/20 05:37 Dose: 1,000 mls/hr Documented by: Meropenem 1 gm/ Sodium (Chloride) 100 mls @ 200 mls/hr IV ONETIME ONE Stop: 04/12/20 06:20 Last Admin: 04/12/20 05:58 Dose: 200 mls/hr Documented by: Lactated Ringer's (Ringers, Lactated) 1,000 mls @ 125 mls/hr IV ASDIRECTED ON LICENSE OF [facility] Last Admin: 04/13/20 05:38 Dose: 125 mls/hr Documented by: Meropenem 1 gm/ Sodium (Chloride) 100 mls @ 200 mls/hr IV Q8H ON LICENSE OF [facility] Last Admin: 04/13/20 05:38 Dose: 200 mls/hr Documented by: Clindamycin Phosphate 600 mg/ (Sodium Chloride) 54 mls @ 100 mls/hr IV Q6H ON LICENSE OF [facility] Last Admin: 04/13/20 04:09 Dose: 100 mls/hr Documented by: Levofloxacin/Dextrose 750 mg/ (Premix) 150 mls @ 100 mls/hr IV Q24H ON LICENSE OF [facility] Last Admin: 04/13/20 09:59 Dose: 100 mls/hr Documented by: Levofloxacin (Levaquin) 500 mg PO ONETIME ONE Stop: 04/13/20 11:46 Last Admin: 04/13/20 12:20 Dose: 500 mg Documented by: Levofloxacin (Levaquin) 750 mg PO ONETIME ONE Stop: 04/14/20 10:01
== END 2020-04-14 11:07 | disposition home or self-care (01) | DRG 177 ==
LOC: JP.ED 05:14 → SUATTDRO 05:14 → JP.ICU 07:21
PROVIDERS: ADMIT Internal Medicine; ATTEND Internal Medicine
DX: J69.0 Pneumonitis due to inhalation of food and vomit (principal); A41.9 Sepsis, unspecified organism; J18.9 Pneumonia, unspecified organism; I25.10 Atherosclerotic heart disease of native coronary artery without angina pectoris; Z20.828 Contact with and (suspected) exposure to other viral communicable diseases; H54.7 Unspecified visual loss; I10 Essential (primary) hypertension; Z85.118 Personal history of other malignant neoplasm of bronchus and lung; Z90.2 Acquired absence of lung [part of]; K21.9 Gastro-esophageal reflux disease without esophagitis; K59.09 Other constipation; M06.9 Rheumatoid arthritis, unspecified; Z79.899 Other long term (current) drug therapy
CPT/HCPCS: 71045 ×2; 99285; 96365; 99284; 85025; 36415; 80053; 83605; 87040 ×2; A9270; J2185; J7030; J7050; 80048; 81001; 83735; 87070; 87205; 94640; 97163-GP; 97530-GP; 99222-AI; 99231; 99238; J1956; J2405; J3490; J7120; U0002

== ENCOUNTER 2021-05-02 12:30 | Emergency (ER) | payer MEDICARE ==
--- NOTE | 2021-05-02 15:27 | EDM.PDOC ---
ED HPI GENERAL MEDICAL PROBLEM - General Chief Complaint: Lower Extremity Injury/Pain Stated Complaint: LEFT LEG PAIN AND DIFFICULT TO MOVE Time Seen by Provider: 05/02/21 15:00 Source of Information: Reports: Patient, RN Notes Reviewed - History of Present Illness INITIAL COMMENTS - FREE TEXT/NARRATIVE: 76-year-old female who has a longstanding history of multiple bony issues including replacements and apparently knee replacement on the left. Also fracture of the femur in the past with a [place]. Comes now because she has increasing pain that shoots into her thigh and up to her hip and down to her k nee of increasing severity make it very difficult for her to ambulate because of discomfort. No fever or chills. No other system problems identified. Generally in good health - Related Data Allergies Allergy/AdvReac Type Severity Reaction Status Date / Time No Known Allergies Allergy Verified 05/02/21 13:00 Home Meds: Home Meds Calcium Carb, Citrate/Vit D3 [Calcium + D3 ER Tablet] 600 mg PO BID 04/09/19 [History] Etanercept [Enbrel] 50 mg SQ ASDIRECTED 04/09/19 [History] Methotrexate 4 tab PO Q7D 04/09/19 [History] Metoprolol Succinate 25 mg PO DAILY 04/12/20 [History] Ticagrelor [Brilinta] 90 mg PO BID 04/12/20 [History] lisinopriL [Lisinopril] 5 mg PO DAILY 04/12/20 [History] Clopidogrel [Plavix] 75 mg PO DAILY 05/02/21 [History] Past Medical History HEENT History: Reports: Impaired Vision Cardiovascular History: Reports: Hypertension Other Cardiovascular History: x4 cardiac stents placed Respiratory History: Reports: None Other Respiratory History: states left lung removal Gastrointestinal History: Reports: Chronic Constipation, GERD Genitourinary History: Reports: None, UTI, Recurrent [employer] History: Reports: , Spontaneous Musculoskeletal History: Reports: RA Hematologic History: Reports: Blood Transfusion(s) Immunologic History: Reports: Other (See Below) Other Immunologic History: RA Oncologic (Cancer) History: Reports: Lung - Infectious Disease History Infectious Disease History: Reports: Chicken Pox, Measles, Mumps, Shingles - Past Surgical History Head Surgeries/Procedures: Reports: None HEENT Surgical History: Reports: Other (See Below) Other HEENT Surgeries/Procedures: eye injections Cardiovascular Surgical History: Reports: None Respiratory Surgical History: Reports: Other (See Below) Other Respiratory Surgeries/Procedures: left lung removed 2010 Musculoskeletal Surgical History: Reports: Hip Replacement, Other (See Below) Other Musculoskeletal Surgeries/Procedures:: left leg, pelvis, Oncologic Surgical History: Reports: Lobectomy Dermatological Surgical History: Reports: None Social & Family History - Tobacco Use Tobacco Use Status *Q: Former Tobacco User Used Tobacco, but Quit: Yes Month/Year Tobacco Last Used: 1989 - Caffeine Use Caffeine Use: Reports: Coffee - Alcohol Use Days Per Week of Alcohol Use: 7 Number of Drinks Per Day: 2 Total Drinks Per Week: 14 - Recreational Drug Use Recreational Drug Use: No Review of Systems - Review of Systems Review Of Systems: Comprehensive ROS is negative, except as noted in HPI. ED EXAM, GENERAL - Physical Exam Exam: See Below Free Text/Narrative:: Alert cooperative female sitting on the gurney patiently waiting in no significant distress. General exam is unremarkable. HEENT appears okay chest nontender to compression abdomen soft active bowel sounds pelvis on compression does not really cause any pain. She has pain when I lift on the left hip. No real discomfort over the symphysis. She does have some tenderness in the mid left thigh with no redness swelling or any outside evidence of abnormality. Knee exam appears to be okay with good range of motion but she does get pain my internally and externally rotate at the left hip. Neurologic seems to be physiologic with no deficits. Skin extremities otherwise normal in appearance Exam Limited By: No Limitations Course - Vital Signs Text/Narrative:: Radiologist reports no bony abnormalities but she does have extensive hardware in the femur from the hip down. No good explanation other than the hardware in her as a source of her pain. CT would have a lot of flaring and not very helpful. She asked about Flexeril and wants to try muscle relaxer like call out to the pharmacy at [facility]. I also gave her 2 mg of Dilaudid for pain tonight. She only has pain when she moves. Last Recorded V/S: Last Vital Signs Temp 36.8 C 05/02/21 13:14 Pulse 60 05/02/21 13:14 Resp 13 05/02/21 13:14 BP 181/50 H 05/02/21 13:14 Pulse Ox 97 05/02/21 13:14 - Orders/Labs/Meds Orders: Active Orders 24 hr Category Date Time Status Femur wo Cont Lt [CT] Stat Exams 05/02/21 15:14 Ordered Meds: Medications Discontinued Medications Generic Name Dose Route Start Last Admin Trade Name Juan PRN Reason Stop Dose Admin Hydromorphone HCl 2 mg 05/02/21 17:50 Hydromorphone 2 Mg Tab PO 05/02/21 17:51 Q3H ONE Departure - Departure Time of Disposition: 18:00 Disposition: Home, Self-Care 01 Clinical Impression: Leg pain, anterior - Discharge Information Referrals: Hiwot Bishop MD [Primary Care Provider] - Forms: ED Department Discharge Sepsis Event Note (ED) - Evaluation Sepsis Screening Result: No Definite Risk - Focused Exam Vital Signs: Vital Signs Temp Pulse Resp BP Pulse Ox 05/02/21 13:14 36.8 C 60 13 181/50 H 97 05/02/21 12:53 36.8 C 60 13 181/50 H 97 - My Orders Last 24 Hours: My Active Orders 05/02/21 15:14 Femur wo Cont Lt [CT] Stat - Assessment/Plan Last 24 Hours: My Active Orders 05/02/21 15:14 Femur wo Cont Lt [CT] Stat
--- NOTE | 2021-05-02 16:26 | CR ---
Femur Min 2V Lt CLINICAL HISTORY: Left thigh pain FINDINGS: Patient has had a previous total hip arthroplasty. There is also been additional fixation with plate and screws. Components appear well seated. Bones are osteoporotic. Impression: Total hip hip arthroplasty and fixation appear intact Osteoporosis
[2021-05-02] MEDS ORDERED: HYDROmorphone 2 MG Tab PO ONE (17:50)
== END 2021-05-02 18:40 | disposition home or self-care (01) ==
LOC: JP.ED 12:30
DX: M79.652 Pain in left thigh (principal); M25.552 Pain in left hip; M06.9 Rheumatoid arthritis, unspecified; I10 Essential (primary) hypertension; Z79.899 Other long term (current) drug therapy; Z79.02 Long term (current) use of antithrombotics/antiplatelets; Z87.891 Personal history of nicotine dependence
CPT/HCPCS: 73552; 99283; A9270

== ENCOUNTER 2021-05-13 12:43 | Inpatient (IN) | payer MEDICARE ==
--- NOTE | 2021-05-13 12:54 | EDM.PDOC ---
ED HPI GENERAL MEDICAL PROBLEM - General Chief Complaint: General Stated Complaint: MEDICAL VIA [facility] Time Seen by Provider: 05/13/21 12:53 Source of Information: Reports: Patient, Family History Limitations: Reports: No Limitations - History of Present Illness INITIAL COMMENTS - FREE TEXT/NARRATIVE: pt fell and hit the sink and has a laceration on the back of her head. She was not knocked out. She has pain in her left leg when this was moved. She is having difficulty standing on the left leg. Pt has had chronic pain. Most of the pain is mid shaft. She has a laceration on the back of her head. She is on [place]. She has swelling over the left clavicle area. Onset: Today, Other (pt lost her balance when she reached accross the cupboard. ) Duration: Hour(s): Location: Reports: Head, Lower Extremity, Left Associated Symptoms: Reports: No Other Symptoms 7 Pain Score (Numeric/FACES): 5 - Related Data Allergies Allergy/AdvReac Type Severity Reaction Status Date / Time No Known Allergies Allergy Verified 05/13/21 12:52 Home Meds: Home Meds Calcium Carb, Citrate/Vit D3 [Calcium + D3 ER Tablet] 600 mg PO BID 04/09/19 [History] Etanercept [Enbrel] 50 mg SQ ASDIRECTED 04/09/19 [History] Methotrexate 4 tab PO Q7D 04/09/19 [History] Clopidogrel [Plavix] 75 mg PO DAILY 05/02/21 [History] Losartan [Cozaar] 1 tab PO DAILY 05/13/21 [History] Naproxen 1 tab PO BID 05/13/21 [History] Pantoprazole Sodium [Protonix] 1 tab PO BID 05/13/21 [History] Propranolol [Inderal] 1 tab PO BID 05/13/21 [History] Sulfamethoxazole/Trimethoprim [Sulfamethoxazole-Tmp Ds Tablet] 1 tab PO BID 05/13/21 [History] atorvaSTATin [Lipitor] 1 tab PO BEDTIME 05/13/21 [History] Past Medical History HEENT History: Reports: Impaired Vision Cardiovascular History: Reports: Hypertension Other Cardiovascular History: x4 cardiac stents placed Respiratory History: Reports: None Other Respiratory History: states left lung removal Gastrointestinal History: Reports: Chronic Constipation, GERD Genitourinary History: Reports: None, UTI, Recurrent [employer] History: Reports: , Spontaneous Musculoskeletal History: Reports: RA Hematologic History: Reports: Blood Transfusion(s) Immunologic History: Reports: Other (See Below) Other Immunologic History: RA Oncologic (Cancer) History: Reports: Lung - Infectious Disease History Infectious Disease History: Reports: Chicken Pox, Measles, Mumps, Shingles - Past Surgical History Head Surgeries/Procedures: Reports: None HEENT Surgical History: Reports: Other (See Below) Other HEENT Surgeries/Procedures: eye injections Cardiovascular Surgical History: Reports: None Respiratory Surgical History: Reports: Other (See Below) Other Respiratory Surgeries/Procedures: left lung removed 2010 Musculoskeletal Surgical History: Reports: Hip Replacement, Other (See Below) Other Musculoskeletal Surgeries/Procedures:: left leg, pelvis, Oncologic Surgical History: Reports: Lobectomy Dermatological Surgical History: Reports: None Social & Family History - Caffeine Use Caffeine Use: Reports: Coffee ED ROS GENERAL - Review of Systems Review Of Systems: See Below Constitutional: Reports: No Symptoms HEENT: Reports: Other (pt fell and hit her head She has a laceration on the back of the head) Respiratory: Reports: No Symptoms Cardiovascular: Reports: No Symptoms Endocrine: Reports: No Symptoms GI/Abdominal: Reports: No Symptoms : Reports: No Symptoms Musculoskeletal: Reports: Other (pain on the anterior portion of the left leg. over the left clavicle and the back of the head. ) Skin: Reports: No Symptoms ED EXAM, GENERAL - Physical Exam Exam: See Below Free Text/Narrative:: pt has a 2 inch laceration on the back of the head where she hit the sink. She has swelling and a hematoma over the left proximal clavicle. She has bled alot from the laceration Exam Limited By: No Limitations General Appearance: Alert, Anxious, Moderate Distress Ears: Normal TMs Nose: Normal Inspection Throat/Mouth: Normal Inspection Head: Other (pt has a 2 inch lacertion over the back of the head. She has alot of clots over the site. ) Neck: Other ( Pt has a hematoma over the site ) Respiratory/Chest: No Respiratory Distress Cardiovascular: Regular Rate, Rhythm GI/Abdominal: Soft, Non-Tender (Female) Exam: Deferred Rectal (Female) Exam: Deferred Back Exam: Normal Inspection Extremities: Other (pt is having very severe pain in the left leg when it is moved. The pain is anterior an appears to be at the lower area of the [place] that she has in her femur. There does not appear to be deformity present. ) Neurological: Alert, Oriented, Normal Cognition Psychiatric: Anxious, Tearful Skin Exam: Other (pt has a 2 inch laceration on the back of her head. ) Course - Vital Signs Last Recorded V/S: Last Vital Signs Temp 35.3 C L 05/14/21 04:02 Pulse 77 05/14/21 04:02 Resp 18 05/14/21 04:02 BP 107/60 05/14/21 04:02 Pulse Ox 93 L 05/14/21 04:02 - Orders/Labs/Meds Orders: Active Orders 24 hr Category Date Time Status Vaccines to be Administered [RC] PER UNIT ROUTINE Care 05/13/21 14:01 Active Medication Orders Atorvastatin Calcium (Atorvastatin 20 Mg Tab) 40 mg PO BEDTIME MICHELLE Clopidogrel Bisulfate (Clopidogrel 75 Mg Tab) 75 mg PO DAILY MICHELLE Hydromorphone HCl (Hydromorphone 0.5 Mg/0.5 Ml Syringe) 0.5 mg IVPUSH Q1H PRN PRN Reason: Pain Last Admin: 05/14/21 03:57 Dose: 0.5 mg Documented by: Admin: 05/13/21 21:34 Dose: 0.5 mg Documented by: CELENA Sodium Chloride (Normal Saline) 1,000 mls @ 125 mls/hr IV ASDIRECTED MICHELLE Last Admin: 05/14/21 03:59 Dose: 125 mls/hr Documented by: Infusion: 05/14/21 03:59 Dose: 125 mls/hr Documented by: Admin: 05/13/21 22:10 Dose: 125 mls/hr Documented by: ARTEM Losartan Potassium (Losartan 50 Mg Tab) 50 mg PO DAILY MICHELLE Ondansetron HCl (Ondansetron 4 Mg/2 Ml Sdv) 4 mg IV Q4H PRN PRN Reason: Nausea/Vomiting Pantoprazole Sodium (Pantoprazole 40 Mg Tab.Cr) 40 mg PO BIDAC MICHELLE Propranolol HCl (Propranolol 40 Mg Tab) 40 mg PO BID MICHELLE Trimethoprim/Sulfamethoxazole (Sulfamethoxazole/Trimethoprim 800-160 Mg Tab) 1 tab PO BID MICHELLE Labs: Laboratory Tests 05/13/21 05/13/21 Range/Units 14:07 14:07 WBC 16.5 H (4.5-11.0) K/uL RBC 4.13 (3.30-5.50) M/uL Hgb 14.0 D (12.0-15.0) g/dL Hct 41.6 (36.0-48.0) % MCV 101 H (80-98) fL MCH 34 H (27-31) pg MCHC 34 (32-36) % Plt Count 262 (150-400) K/uL Neut % (Auto) 78.3 H (36-66) % Lymph % (Auto) 12.8 L (24-44) % [place] % (Auto) 7.8 H (2-6) % Eos % (Auto) 0.8 L (2-4) % Baso % (Auto) 0.3 (0-1) % Sodium 136 L (140-148) mmol/L Potassium 5.3 H (3.6-5.2) mmol/L Chloride 101 (100-108) mmol/L Carbon Dioxide 21 (21-32) mmol/L Anion Gap 19.3 H (5.0-14.0) mmol/L BUN 22 H D (7-18) mg/dL Creatinine 1.1 H (0.6-1.0) mg/dL Est Cr Clr Drug Dosing 41.13 mL/min Estimated GFR (MDRD) 48 L (>60) Glucose 116 H (74-106) mg/dL Calcium 8.8 (8.5-10.1) mg/dL Total Bilirubin 0.5 D (0.2-1.0) mg/dL AST 36 (15-37) U/L ALT 35 (12-78) U/L Alkaline Phosphatase 140 H (46-116) U/L Total Protein 6.9 (6.4-8.2) g/dL Albumin 3.6 (3.4-5.0) g/dL Globulin 3.3 (2.3-3.5) g/dL Albumin/Globulin Ratio 1.1 L (1.2-2.2) Meds: Medications Generic Name Dose Route Start Last Admin Trade Name Freq PRN Reason Stop Dose Admin Atorvastatin Calcium 40 mg 05/14/21 21:00 Atorvastatin 20 Mg Tab PO BEDTIME MICHELLE Clopidogrel Bisulfate 75 mg 05/14/21 09:00 Clopidogrel 75 Mg Tab PO DAILY MICHELLE Hydromorphone HCl 0.5 mg 05/13/21 21:14 05/14/21 03:57 Hydromorphone 0.5 Mg/0.5 Ml Syringe IVPUSH 0.5 mg Q1H PRN Administration Pain Sodium Chloride 1,000 mls @ 125 mls/hr 05/13/21 21:15 05/14/21 03:59 Normal Saline IV 125 mls/hr ASDIRECTED MICHELLE Administration Losartan Potassium 50 mg 05/14/21 09:00 Losartan 50 Mg Tab PO DAILY MICHELLE Ondansetron HCl 4 mg 05/13/21 21:08 Ondansetron 4 Mg/2 Ml Sdv IV Q4H PRN Nausea/Vomiting Pantoprazole Sodium 40 mg 05/14/21 07:30 Pantoprazole 40 Mg Tab.Cr PO BIDAC MICHELLE Propranolol HCl 40 mg 05/14/21 09:00 Propranolol 40 Mg Tab PO BID MICHELLE Trimethoprim/Sulfamethoxazole 1 tab 05/14/21 09:00 Sulfamethoxazole/Trimethoprim 800-160 Mg Tab PO BID MICHELLE Discontinued Medications Generic Name Dose Route Start Last Admin Trade Name Freq PRN Reason Stop Dose Admin Bacitracin 1 dose 05/13/21 15:29 05/13/21 17:17 Bacitracin Oint 1 Gm U/D Packet TOP 05/13/21 15:30 1 dose ONETIME ONE Administration Diphtheria/Tetanus/Acell Pertussis 0.5 ml 05/13/21 14:01 05/13/21 17:17 Diphtheria,Pertussis(Acell),Tetanus Vaccine 0.5 Ml Syringe IM 05/13/21 14:02 0.5 ml .ONCE ONE Administration Hydromorphone HCl 0.5 mg 05/13/21 17:01 05/13/21 17:25 Hydromorphone 0.5 Mg/0.5 Ml Syringe IVPUSH 05/13/21 17:02 0.5 mg ONETIME ONE Administration Sodium Chloride 1,000 mls @ 999 mls/hr 05/13/21 15:45 05/13/21 17:25 Normal Saline IV 999 mls/hr ASDIRECTED MICHELLE Administration Lidocaine HCl 20 ml 05/13/21 15:29 05/13/21 17:25 Lidocaine 1% 20 Ml Mdv INJECT 05/13/21 15:30 20 ml ONETIME ONE Administration Ondansetron HCl 4 mg 05/13/21 15:37 05/13/21 17:25 Ondansetron 4 Mg/2 Ml Sdv IVPUSH 05/13/21 15:38 4 mg ONETIME ONE Administration - Re-Assessments/Exams Free Text/Narrative Re-Assessment/Exam: 05/13/21 16:03 pt had a blow to the back of her head she had a 2 inch laceration on the back of the head with alot of bleeding . The wound was cleaned well and infiltrated with lidocaine. The wound was closed with 3-0 ethilon bacatracin was applied. A pressure dressing was applied. much time was spent cleaning all of the blood that was caked in the hair. She had a cat scan of the head because she is on plavix and asa. This was neg. She had a xray of her clavicle which looked neg and the radiologist also thought it was neg. She had a large hematoma over the clavicle and appeared to be very tender. Acat scan of the chest and clavicle area was obtained which showed a commuted fracture of the proximal clavicle. She has had her left lung removed in the past. A xray of the left femur was obtained which showed a small fracture in the habematolel femur mid portion. This leg was very uncomfortable when she tried to move in bed. 05/14/21 07:38 Departure - Departure Time of Disposition: 08:00 Disposition: Admitted As Inpatient 67 Condition: Fair Clinical Impression: Fracture of clavicle, Fracture of left femur, Laceration of scalp, Hypotension - Discharge Information - My Orders Last 24 Hours: My Active Orders 05/13/21 14:01 Vaccines to be Administered [RC] PER UNIT ROUTINE - Assessment/Plan Last 24 Hours: My Active Orders 05/13/21 14:01 Vaccines to be Administered [RC] PER UNIT ROUTINE
[2021-05-13] MEDS ORDERED: Diphtheria,Pertussis(Acell),Tetanus Vaccine 0.5 ML Syringe IM ONE (14:01)
[2021-05-13] MEDS ORDERED: Bacitracin Oint 1 GM U/D Packet TOP ONE (15:29)
[2021-05-13] MEDS ORDERED: Lidocaine 1% 20 ML MDV INJECT ONE (15:29)
[2021-05-13] MEDS ORDERED: Ondansetron 4 MG/2 ML SDV IVPUSH ONE (15:37)
--- NOTE | 2021-05-13 15:41 | CRLCT ---
For Patients: As a result of the Century Cures Act, medical imaging exams and procedure reports are released immediately into your electronic medical record. You may view this report before your referring provider. If you have questions, please contact your health care provider. Indication: Fall. Technique: Multiple contiguous axial images were obtained from the skullbase to the vertex without intravenous contrast enhancement. Please note that all CT scans at this facility use dose modulation, iterative reconstruction, and/or weight-based dosing when appropriate to reduce radiation dose to as low as reasonably achievable. Comparison: None Findings: The ventricles are enlarged consistent with sizes also. Confluent areas of low attenuation identified within the periventricular white matter. The basal cisterns are widely patent. No intra-axial or extra-axial hemorrhage is identified. No mass, mass effect or midline shift is identified. Soft tissue swelling is identified adjacent to the left posterior parietal bone. Impression: Mild diffuse volume loss. No acute intracranial process Please note that all CT scans at this facility use dose modulation, iterative reconstruction, and/or weight-based dosing when appropriate to reduce radiation dose to as low as reasonably achievable. Dictated by Kathrine Gordon MD @ 05/13/2021 3:40:[address] Kathrine Gordon @ May 13 2021 3:40PM
[2021-05-13] MEDS ORDERED: Sodium Chloride 0.9% 1,000 ML IV SCH (15:45)
--- NOTE | 2021-05-13 16:10 | CRLCR ---
For Patients: As a result of the Cures Act, medical imaging exams and procedure reports are released immediately into your electronic medical record. You may view this report before your referring provider. If you have questions, please contact your health care provider. Indication: Slipped. Technique: Two views of the left femur. Comparison: May 02, 2021. Findings: A left hip arthroplasty is identified. A plate and screws are identified at the level of the proximal femur. On the AP view, there does appear to be a new fracture along the medial aspect of the [place] femur at the level of the mid portion of the femoral stem of the left hip arthroplasty. No other fractures are identified. Impression: Apparent new fracture of the medial aspect of the [place] proximal femur Dictated by Kathrine Gordon MD @ 05/13/2021 4:08:[address] Kathrine Gordon @ May 13 2021 4:08PM
--- NOTE | 2021-05-13 16:10 | CRLCR ---
For Patients: As a result of the Cures Act, medical imaging exams and procedure reports are released immediately into your electronic medical record. You may view this report before your referring provider. If you have questions, please contact your health care provider. Indication: Fall. Technique: Two views of the left shoulder. Comparison: None Findings: The trachea is deviated to the left. Pleural thickening is identified on the left. No fracture or subluxation is identified. The humeral head is seated within the glenoid. Degenerative changes are identified at the acromioclavicular and glenohumeral joint spaces. Impression: Degenerative change. No acute fracture. Dictated by Kathrine Gordon MD @ 05/13/2021 4:09:[address] Kathrine Gordon @ May 13 2021 4:09PM
[2021-05-13] MEDS ORDERED: HYDROmorphone 0.5 MG/0.5 ML Syringe IVPUSH ONE (17:01)
--- NOTE | 2021-05-13 18:03 | CRLCT ---
For Patients: As a result of the Century Cures Act, medical imaging exams and procedure reports are released immediately into your electronic medical record. You may view this report before your referring provider. If you have questions, please contact your health care provider. Indication: Swelling pain over the left clavicle. Technique: Multiple contiguous axial images were obtained from the thoracic inlet through the upper abdomen without intravenous contrast enhancement. Please note that all CT scans at this facility use dose modulation, iterative reconstruction, and/or weight-based dosing when appropriate to reduce radiation dose to as low as reasonably achievable. Comparison: October 28, 2019. Findings: A comminuted fracture of the proximal clavicle is identified. Soft tissue density is identified surrounding this, most consistent with a hematoma. No definite rib fractures are identified. Postsurgical changes of left pneumonectomy are identified. A minimal amount of pleural effusions identified, decreased. Bilateral breast implants are identified. Right mastectomy is present. No infiltrate, pleural effusion, or pneumothorax is identified on the right. A ground-glass opacity is identified in the right lower lobe. This measures 17 mm in size. This is best seen on image number 48, series 2. This was present previously but has increased in size and density. In the right upper lobe, ground-glass opacities identified measuring 12 mm in size. This is best seen on image number 37, series 3. This is stable. Just medial to this is a 2nd more subtle ground-glass opacity measuring 6 mm in size. This is also seen on image number 37, series 3. Superior to this is a ground-glass opacity posteriorly within the right upper lobe measuring 12 mm in size. This is stable. Superior to this is a ground-glass opacity on image number 25, series 2 and on image number 20, series 2. These are stable. A calcified granuloma is identified in the right upper lobe. No pleural effusion or pneumothorax is identified. Degenerative changes of the spine are identified. The visualized portions of the unenhanced liver, spleen, pancreas, adrenals, and kidneys are normal. Impression: Comminuted medial left clavicular fracture. There is associated surrounding edema. Postsurgical changes of left pneumonectomy. The size of the left pleural effusion has decreased when compared with the previous exam. Ground-glass opacities identified within the right lung, stable except for 1 of the right lower lobe ground-glass opacities. Please note that all CT scans at this facility use dose modulation, iterative reconstruction, and/or weight-based dosing when appropriate to reduce radiation dose to as low as reasonably achievable. Dictated by Kathrine Gordon MD @ 05/13/2021 6:01:[address] Kathrine Gordon @ May 13 2021 6:01PM
[2021-05-13] MEDS ORDERED: Ondansetron 4 MG/2 ML SDV IV PRN (21:08)
[2021-05-13] MEDS: HYDROmorphone 0.5 MG/0.5 ML Syringe IVPUSH PRN (21:34)
[2021-05-13] MEDS: Sodium Chloride 0.9% 1,000 ML IV SCH (22:10)
[2021-05-14] MEDS: HYDROmorphone 0.5 MG/0.5 ML Syringe IVPUSH PRN ×3 (03:57→16:31)
[2021-05-14] MEDS: Sodium Chloride 0.9% 1,000 ML IV SCH (03:59)
[2021-05-14] MEDS: Losartan 50 MG Tab PO SCH (08:09)
[2021-05-14] MEDS: Pantoprazole 40 MG Tab.CR PO SCH ×2 (08:09→16:28)
[2021-05-14] MEDS: Sulfamethoxazole/Trimethoprim 800-160 MG Tab PO SCH ×2 (08:09→21:03)
[2021-05-14] MEDS: Propranolol 40 MG Tab PO SCH ×2 (08:09→21:04)
[2021-05-14] MEDS: Clopidogrel 75 MG Tab PO SCH ×2 (08:10→18:12)
--- NOTE | 2021-05-14 13:06 | PCM.PN ---
- General Info Date of Service: 05/14/21 Subjective Update: Ms. Elliott is a 76-year-old woman who was admitted through the emergency department last night after she fell at home experiencing a left femur fracture and a left clavicular fracture. She also experienced a laceration of the back of her head that was repaired in the emergency department. CT scan of the head showed no other acute abnormalities. Functional Status: Reports: Pain Controlled - Review of Systems General: Reports: No Symptoms Pulmonary: Reports: No Symptoms Cardiovascular: Reports: No Symptoms Gastrointestinal: Reports: No Symptoms Musculoskeletal: Reports: Shoulder Pain, Leg Pain - Patient Data Vitals - Most Recent: Last Vital Signs Temp 96.7 F L 05/14/21 10:54 Pulse 89 05/14/21 10:54 Resp 17 05/14/21 10:54 BP 120/55 L 05/14/21 10:54 Pulse Ox 90 L 05/14/21 10:54 Weight - Most Recent: 134 lb 4.184 oz I&O - Last 24 Hours: Intake & Output 05/13/21 05/14/21 05/14/21 22:59 06:59 14:59 Intake Total 676 Output Total 150 Balance 526 Lab Results Last 24 Hours: Laboratory Results - last 24 hr 05/13/21 05/13/21 05/14/21 Range/Units 14:07 14:07 04:30 WBC 16.5 H (4.5-11.0) K/uL RBC 4.13 (3.30-5.50) M/uL Hgb 14.0 D (12.0-15.0) g/dL Hct 41.6 (36.0-48.0) % MCV 101 H (80-98) fL MCH 34 H (27-31) pg MCHC 34 (32-36) % Plt Count 262 (150-400) K/uL Neut % (Auto) 78.3 H (36-66) % Lymph % (Auto) 12.8 L (24-44) % [place] % (Auto) 7.8 H (2-6) % Eos % (Auto) 0.8 L (2-4) % Baso % (Auto) 0.3 (0-1) % Sodium 136 L (140-148) mmol/L Potassium 5.3 H (3.6-5.2) mmol/L Chloride 101 (100-108) mmol/L Carbon Dioxide 21 (21-32) mmol/L Anion Gap 19.3 H (5.0-14.0) mmol/L BUN 22 H D (7-18) mg/dL Creatinine 1.1 H (0.6-1.0) mg/dL Est Cr Clr Drug Dosing 41.13 mL/min Estimated GFR (MDRD) 48 L (>60) Glucose 116 H (74-106) mg/dL Calcium 8.8 (8.5-10.1) mg/dL Total Bilirubin 0.5 D (0.2-1.0) mg/dL AST 36 (15-37) U/L ALT 35 (12-78) U/L Alkaline Phosphatase 140 H (46-116) U/L Total Protein 6.9 (6.4-8.2) g/dL Albumin 3.6 (3.4-5.0) g/dL Globulin 3.3 (2.3-3.5) g/dL Albumin/Globulin Ratio 1.1 L (1.2-2.2) Urine Color Yellow (YELLOW) Urine Appearance Clear (CLEAR) Urine pH 5.5 (5.0-8.0) Ur Specific [place] 1.025 (1.008-1.030) Urine Protein Negative (NEGATIVE) mg/dL Urine Glucose (UA) Negative (NEGATIVE) mg/dL Urine Ketones Trace H (NEGATIVE) mg/dL Urine Occult Blood Negative (NEGATIVE) Urine Nitrite Negative (NEGATIVE) Urine Bilirubin Small H (NEGATIVE) Urine Urobilinogen 0.2 (0.2-1.0) EU/dL Ur Leukocyte Esterase Small H (NEGATIVE) Urine RBC 0-5 (0-5) Urine WBC 5-10 H (0-5) Ur Epithelial Cells Few Amorphous Sediment Few Urine Bacteria Few Urine Mucus Not seen Med Orders - Current: Current Medications Atorvastatin Calcium (Atorvastatin 20 Mg Tab) 40 mg PO BEDTIME MICHELLE Clopidogrel Bisulfate (Clopidogrel 75 Mg Tab) 75 mg PO DAILY MICHELLE Last Admin: 05/14/21 08:10 Dose: Not Given Documented by: Hydromorphone HCl (Hydromorphone 0.5 Mg/0.5 Ml Syringe) 0.5 mg IVPUSH Q1H PRN PRN Reason: Pain Last Admin: 05/14/21 10:27 Dose: 0.5 mg Documented by: Sodium Chloride (Normal Saline) 1,000 mls @ 125 mls/hr IV ASDIRECTED [facility] Last Admin: 05/14/21 03:59 Dose: 125 mls/hr Documented by: Losartan Potassium (Losartan 50 Mg Tab) 50 mg PO DAILY [facility] Last Admin: 05/14/21 08:09 Dose: 50 mg Documented by: Ondansetron HCl (Ondansetron 4 Mg/2 Ml Sdv) 4 mg IV Q4H PRN PRN Reason: Nausea/Vomiting Pantoprazole Sodium (Pantoprazole 40 Mg Tab.Cr) 40 mg PO BIDAC [facility] Last Admin: 05/14/21 08:09 Dose: 40 mg Documented by: Propranolol HCl (Propranolol 40 Mg Tab) 40 mg PO BID [facility] Last Admin: 05/14/21 08:09 Dose: 40 mg Documented by: Trimethoprim/Sulfamethoxazole (Sulfamethoxazole/Trimethoprim 800-160 Mg Tab) 1 tab PO BID [facility] Last Admin: 05/14/21 08:09 Dose: 1 tab Documented by: Discontinued Medications Bacitracin (Bacitracin Oint 1 Gm U/D Packet) 1 dose TOP ONETIME ONE Stop: 05/13/21 15:30 Last Admin: 05/13/21 17:17 Dose: 1 dose Documented by: Diphtheria/Tetanus/Acell Pertussis (Diphtheria,Pertussis(Acell),Tetanus Vaccine 0.5 Ml Syringe) 0.5 ml IM .ONCE ONE Stop: 05/13/21 14:02 Last Admin: 05/13/21 17:17 Dose: 0.5 ml Documented by: Hydromorphone HCl (Hydromorphone 0.5 Mg/0.5 Ml Syringe) 0.5 mg IVPUSH ONETIME ONE Stop: 05/13/21 17:02 Last Admin: 05/13/21 17:25 Dose: 0.5 mg Documented by: Sodium Chloride (Normal Saline) 1,000 mls @ 999 [facility]ls[facility] Admin: 05/13/21 17:25 Dose: 999 mls/hr Documented by: Lidocaine HCl (Lidocaine 1% 20 Ml Mdv) 20 ml INJECT ONETIME ONE Stop: 05/13/21 15:30 Last Admin: 05/13/21 17:25 Dose: 20 ml Documented by: Ondansetron HCl (Ondansetron 4 Mg/2 Ml Sdv) 4 mg IVPUSH ONETIME ONE Stop: 05/13/21 15:38 Last Admin: 05/13/21 17:25 Dose: 4 mg Documented by: - Exam General: Alert, Oriented, Cooperative, Moderate Distress Lungs: Clear to Auscultation, Normal Respiratory Effort Cardiovascular: Regular Rate, Regular Rhythm, No Murmurs GI/Abdominal Exam: Soft, Non-Tender, No Organomegaly, No Distention Extremities: Leg Pain - Patient Data Lab Results Last 24 hrs: Laboratory Results - last 24 hr 05/13/21 05/13/21 05/14/21 Range/Units 14:07 14:07 04:30 WBC 16.5 H (4.5-11.0) K/uL RBC 4.13 (3.30-5.50) M/uL Hgb 14.0 D (12.0-15.0) g/dL Hct 41.6 (36.0-48.0) % MCV 101 H (80-98) fL MCH 34 H (27-31) pg MCHC 34 (32-36) % Plt Count 262 (150-400) K/uL Neut % (Auto) 78.3 H (36-66) % Lymph % (Auto) 12.8 L (24-44) % [place] % (Auto) 7.8 H (2-6) % Eos % (Auto) 0.8 L (2-4) % Baso % (Auto) 0.3 (0-1) % Sodium 136 L (140-148) mmol/L Potassium 5.3 H (3.6-5.2) mmol/L Chloride 101 (100-108) mmol/L Carbon Dioxide 21 (21-32) mmol/L Anion Gap 19.3 H (5.0-14.0) mmol/L BUN 22 H D (7-18) mg/dL Creatinine 1.1 H (0.6-1.0) mg/dL Est Cr Clr Drug Dosing 41.13 mL/min Estimated GFR (MDRD) 48 L (>60) Glucose 116 H (74-106) mg/dL Calcium 8.8 (8.5-10.1) mg/dL Total Bilirubin 0.5 D (0.2-1.0) mg/dL AST 36 (15-37) U/L ALT 35 (12-78) U/L Alkaline Phosphatase 140 H (46-116) U/L Total Protein 6.9 (6.4-8.2) g/dL Albumin 3.6 (3.4-5.0) g/dL Globulin 3.3 (2.3-3.5) g/dL Albumin/Globulin Ratio 1.1 L (1.2-2.2) Urine Color Yellow (YELLOW) Urine Appearance Clear (CLEAR) Urine pH 5.5 (5.0-8.0) Ur Specific [place] 1.025 (1.008-1.030) Urine Protein Negative (NEGATIVE) mg/dL Urine Glucose (UA) Negative (NEGATIVE) mg/dL Urine Ketones Trace H (NEGATIVE) mg/dL Urine Occult Blood Negative (NEGATIVE) Urine Nitrite Negative (NEGATIVE) Urine Bilirubin Small H (NEGATIVE) Urine Urobilinogen 0.2 (0.2-1.0) EU/dL Ur Leukocyte Esterase Small H (NEGATIVE) Urine RBC 0-5 (0-5) Urine WBC 5-10 H (0-5) Ur Epithelial Cells Few Amorphous Sediment Few Urine Bacteria Few Urine Mucus Not seen Result Diagrams: 05/13/21 14:07 05/13/21 14:07 Sepsis Event Note - Evaluation Sepsis Screening Result: Possible Sepsis Risk - Focused Exam Vital Signs: Vital Signs Temp Pulse Resp BP BP Pulse Ox 05/14/21 10:54 96.7 F L 89 17 120/55 L 90 L 05/14/21 08:09 116/17 L 05/14/21 08:04 95.5 F L 75 16 116/17 L 92 L 05/14/21 04:02 95.6 F L 77 18 107/60 93 L - Problem List Review Problem List Initiated/Reviewed/Updated: Yes - My Orders Last 24 Hours: My Active Orders 05/14/21 Lunch NPO Now [Nothing per Oral Now Diet] [DIET] 05/15/21 05:00 BASIC METABOLIC PANEL,BMP [CHEM] Timed CBC WITH AUTO DIFF [HEME] Timed - Plan Plan:: ASSESSMENT AND PLAN LEFT FEMUR FRACTURE -N.p.o. -Consult Dr. Ireland -Continue IV fluids -Pain medication as needed -Hold Plavix LEFT CLAVICULAR FRACTURE -As above HYPERTENSION -Monitor blood pressure during hospitalization -Continue outpatient medications CORONARY ARTERY DISEASE-currently asymptomatic. Status post last angioplasty with stent placement over 1 year ago. -Hold Plavix -Continue other outpatient medications HISTORY OF LUNG CANCER-status post left pneumonectomy MAINTENANCE ISSUES -DVT prophylaxis; SCUDs -GI prophylaxis; not indicated -Baker catheter; not indicated -Nutrition; regular diet -Nicotine dependence; not required CODE STATUS-FULL CODE ADMISSION STATUS-patient will be admitted to inpatient status, expect at least a 2 night hospital stay for evaluation and management of problems as outlined above. At the time of this admission I do not reasonably expected evaluation and management of this problem will require more than a 96 hour hospital stay. DISPOSITION-anticipate discharge to home after the hospital stay. PRIMARY CARE PROVIDER-Dr. Bishop
[2021-05-14] MEDS ORDERED: Acetaminophen/oxyCODONE 325-5 MG Tab PO PRN (14:57)
[2021-05-14] MEDS: Acetaminophen/HYDROcodone 325-5 MG Tab PO PRN ×3 (15:05→23:58)
--- NOTE | 2021-05-14 15:12 | HP ---
CHIEF COMPLAINT: Left leg pain, left clavicle pain and laceration to her scalp. HISTORY OF PRESENT ILLNESS: A 76-year-old who has had bilateral hip replacements in the past and ended up having a fracture of the left femur that was repaired she thinks back in 2013. Was in about a week ago to the emergency room, had x-rays because she was having pain, but no fracture was identified at that time. She was in the kitchen. She went to turn. She did not really know what happened, but all of sudden fell, hit her head. She does not know if it was on the counter or the floor, but did not lose consciousness, sustained a laceration to the occipital area of her scalp that was repaired by the emergency room physician, apparently 4 cm in length. Had pain in her left clavicle and has a fracture there, and pain in her mid thigh on the left side that has a fracture in [place] bone. Was evaluated by emergency room physician. I was asked to admit the patient for further evaluation and treatment. It sounds like she is supposed to be seeing Orthopedic Surgery in the next week. I am not sure whom she is supposed to be seeing; she does not know, for her left leg pain. The patient denies any other complaints. PAST MEDICAL HISTORY: 1. Bilateral total hip arthroplasties. 2. Fracture of left femur with repair in the past. 3. She also fractured her left tibia with repair in the past. 4. She has rheumatoid arthritis. 5. History of shingles. 6. She had lung cancer with left lung resection. CURRENT MEDICATIONS: Atorvastatin 40 mg at bedtime, calcium with vitamin D, Clopidogrel 75 mg daily, Enbrel 50 mg, losartan 50 mg daily, methotrexate 2.5 mg tablet 4 tablets weekly, naproxen 500 mg b.i.d. that was recently started, pantoprazole 40 mg b.i.d., propranolol 40 mg b.i.d. Trimethoprim sulfa 1 tab b.i.d., not sure when it was started or completed. ALLERGIES: NO KNOWN DRUG ALLERGIES. SOCIAL HISTORY: Previous smoker. FAMILY HISTORY: Noncontributory. REVIEW OF SYSTEMS: Denies headache. She does report posterior headache. No loss of consciousness. No vision problems. No upper respiratory symptoms. No chest pain, cough, fever. She had some nausea when she came into the emergency room. No diarrhea, constipation or bloody black stools. She is on Bactrim, not sure if she is on it for urinary tract infection. We will try to clarify. She does report left clavicle pain and left upper leg pain. Denies any specific skin problems other than the laceration. No neurologic complaints reported. OBJECTIVE: VITAL SIGNS: Temperature 36.4, pulse 103, blood pressure 178/90, respirations 16, O2 saturation 94% on room air. GENERAL: The patient is alert and oriented. She had a bandage on her head. I did not look at the laceration. Apparently, 4 cm to the occipital area and was repaired by the emergency room physician and was bandaged. HEENT: Pharynx is clear. NECK: Supple. No adenopathy, thyromegaly. She had pain with swelling in the left clavicle area with discomfort. LUNGS: Clear on the right side. Decreased breath sounds on the left from her left lung resection in the past. HEART: Regular without murmurs. ABDOMEN: Soft, nontender. No mass or organomegaly palpated. EXTREMITIES: Has pain in her mid to distal left thigh. It hurts with any type of movement. Lower extremities, no edema. Pedal pulses are palpable and equal bilaterally. SKIN: Other than laceration was unremarkable. NEUROLOGIC: Cranial nerves 2 through 12 grossly intact. Was alert and oriented. LABORATORY DATA: White count 16.5, hemoglobin 14.0, platelets 262,000. Sodium 136, potassium 5.3, BUN was 22, creatinine 1.1, glucose 116. Liver functions were normal. Alkaline phosphatase was elevated at 140. New fracture to the [place] proximal femur. She has a fracture to the left clavicle. CT scan of her head was unremarkable. No acute process identified. ASSESSMENT: 1. Left femur fracture, [place] bone. Previous hip replacement and fractured femur in the past with repair. Apparently, Orthopedics not available tonight, but will be back tomorrow. We will consult them and transfer care to the hospitalist service also. 2. Left clavicle fracture reported by the emergency room physician, but the radiologist did not comment on this. 3. Lacerations to occipital area, repaired by the emergency room physician. 4. History of lung cancer with left lung resection in the past. Tavo Gee MD /[id number]
--- NOTE | 2021-05-14 17:21 | PCM.CONS ---
H&P History of Present Illness - General Date of Service: 05/14/21 Admit Problem/Dx: Admission Diagnosis/Problem Admission Diagnosis/Problem Pain Left clavicle fracture, medial Left femur periprosthetic fracture, nondisplaced History Limitations: Reports: No Limitations - History of Present Illness Initial Comments - Free Text/Narative: Asked to see 76 year old admitted after a fall with left shoulder and left leg pain. Reports that she was working in her kitchen and overextended her reach and fell. She is unsure if she struck her head on the counter or the floor but she sustained a laceration to the back of her head that was repaired in the ED. She was also found to have a hematoma over the sternal end of the left clavicle with pain of motion and pain in the left thigh. X-rays and CT show a minimally displaced fracture of the medial clavicle and a nondisplaced fracture of the proximal femoral shaft adjacent to the prosthetic stem and apparently stable. There is no evidence of extension of the fracture below the stem and plate she has in place. She has a fairly extensive Orthopedic history with bilateral THAs, a periprosthetic fracture of the left femur with cables, a plate and screws in place, and a tibial fracture with an IM [place] and small plate. Onset of Symptoms: Reports: Sudden Location: Reports: Upper Extremity, Left, Lower Extremity, Left (Left mid-thigh, left shoulder) Quality: Reports: Sharp, Stabbing Severity: Severe Improves with: Reports: Immobilization Worsens with: Reports: Movement Associated Symptoms: Reports: No Other Symptoms 7 Pain Score (Numeric/FACES): 5 - Related Data Allergies/Adverse Reactions: Allergies Allergy/AdvReac Type Severity Reaction Status Date / Time No Known Allergies Allergy Verified 05/13/21 12:52 Home Medications: Home Meds Calcium Carb, Citrate/Vit D3 [Calcium + D3 ER Tablet] 600 mg PO BID 04/09/19 [History] Etanercept [Enbrel] 50 mg SQ ASDIRECTED 04/09/19 [History] Methotrexate 4 tab PO Q7D 04/09/19 [History] Clopidogrel [Plavix] 75 mg PO DAILY 05/02/21 [History] Losartan [Cozaar] 1 tab PO DAILY 05/13/21 [History] Naproxen 1 tab PO BID 05/13/21 [History] Pantoprazole Sodium [Protonix] 1 tab PO BID 05/13/21 [History] Propranolol [Inderal] 1 tab PO BID 05/13/21 [History] Sulfamethoxazole/Trimethoprim [Sulfamethoxazole-Tmp Ds Tablet] 1 tab PO BID 05/13/21 [History] atorvaSTATin [Lipitor] 1 tab PO BEDTIME 05/13/21 [History] Past Medical History HEENT History: Reports: Impaired Vision Cardiovascular History: Reports: Hypertension Other Cardiovascular History: x4 cardiac stents placed 2020 Respiratory History: Reports: None Other Respiratory History: states left lung removal Gastrointestinal History: Reports: Chronic Constipation, GERD Genitourinary History: Reports: None, UTI, Recurrent 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 [employer]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: , 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 Musculoskeletal History: Reports: RA Hematologic History: Reports: Blood Transfusion(s) Immunologic History: Reports: Other (See Below) Other Immunologic History: RA Oncologic (Cancer) History: Reports: Lung - Infectious Disease History Infectious Disease History: Reports: Chicken Pox, Measles, Mumps, Shingles - Past Surgical History Head Surgeries/Procedures: Reports: None HEENT Surgical History: Reports: Other (See Below) Other HEENT Surgeries/Procedures: eye injections Cardiovascular Surgical History: Reports: None Respiratory Surgical History: Reports: Other (See Below) Other Respiratory Surgeries/Procedures: left lung removed 2010 Musculoskeletal Surgical History: Reports: Hip Replacement, Other (See Below) Other Musculoskeletal Surgeries/Procedures:: left leg, pelvis, Oncologic Surgical History: Reports: Lobectomy Dermatological Surgical History: Reports: None Social & Family History - Tobacco Use Tobacco Use Status *Q: Former Tobacco User Used Tobacco, but Quit: Yes Month/Year Tobacco Last Used: 1989 - Caffeine Use Caffeine Use: Reports: Coffee, Tea - Alcohol Use Days Per Week of Alcohol Use: 1 Number of Drinks Per Day: 1 Total Drinks Per Week: 1 - Recreational Drug Use Recreational Drug Use: No H&P Review of Systems - Review of Systems: Review Of Systems: See Below General: Reports: No Symptoms HEENT: Reports: No Symptoms Musculoskeletal: Reports: Arm Pain, Leg Pain Neurological: Reports: No Symptoms Exam - Exam Exam: See Below - Vital Signs Vital Signs: Last Vital Signs Temp 35.5 C L 05/14/21 16:27 Pulse 72 05/14/21 16:27 Resp 16 05/14/21 16:27 BP 114/36 L 05/14/21 16:27 Pulse Ox 90 L 05/14/21 16:27 Weight: 60.9 kg - Exam Physical Exam Comments:: There is ecchymosis and a small hematoma left upper chest and clavicular region. She moves the left arm fairly freely while in bad with little pain. Full ROM and strength are not tested. She has much more pain with attempted ROM of the left leg. She indicates the mid thigh as the location of the pain. She is relatively comfortable at rest, but gets a severe, sharp pain with motion of the hip. There is no deformity and no ecchymosis. - Patient Data Lab Results Last 24 hrs: Laboratory Results - last 24 hr 05/14/21 Range/Units 04:30 Urine Color Yellow (YELLOW) Urine Appearance Clear (CLEAR) Urine pH 5.5 (5.0-8.0) Ur Specific [place] 1.025 (1.008-1.030) Urine Protein Negative (NEGATIVE) mg/dL Urine Glucose (UA) Negative (NEGATIVE) mg/dL Urine Ketones Trace H (NEGATIVE) mg/dL Urine Occult Blood Negative (NEGATIVE) Urine Nitrite Negative (NEGATIVE) Urine Bilirubin Small H (NEGATIVE) Urine Urobilinogen 0.2 (0.2-1.0) EU/dL Ur Leukocyte Esterase Small H (NEGATIVE) Urine RBC 0-5 (0-5) Urine WBC 5-10 H (0-5) Ur Epithelial Cells Few Amorphous Sediment Few Urine Bacteria Few Urine Mucus Not seen Result Diagrams: 05/13/21 14:07 05/13/21 14:07 Sepsis Event Note - Evaluation Sepsis Screening Result: Possible Sepsis Risk - Focused Exam Vital Signs: Vital Signs Temp Pulse Resp BP BP Pulse Ox 05/14/21 16:27 35.5 C L 72 16 114/36 L 90 L 05/14/21 10:54 35.9 C L 89 17 120/55 L 90 L 05/14/21 08:09 116/17 L 05/14/21 08:04 35.3 C L 75 16 116/17 L 92 L Consult PN Assessment/Plan Procedures: Procedures AIRWAY INHALATION TREATMENT (04/12/20) ASSAY OF LACTIC ACID (04/12/20) ASSAY OF MAGNESIUM (04/12/20) ASSAY OF TROPONIN QUANT (04/06/20) BLOOD CULTURE FOR BACTERIA (04/12/20) BREAST TOMOSYNTHESIS BI (11/18/19) COMPLETE CBC W/AUTO DIFF WBC (04/12/20) COMPREHEN METABOLIC PANEL (04/12/20) CT THORAX DX C- (10/11/19) CULTURE OTHR SPECIMN AEROBIC (04/12/20) ELECTROCARDIOGRAM TRACING (04/06/20) EMERGENCY DEPT VISIT (05/02/21) EMERGENCY DEPT VISIT (04/12/20) EMERGENCY DEPT VISIT (04/12/20) EMERGENCY DEPT VISIT (04/09/19) HOSPITAL DISCHARGE DAY (04/12/20) INITIAL HOSPITAL CARE (04/12/20) METABOLIC PANEL TOTAL CA (04/12/20) PROTHROMBIN TIME (04/06/20) PT EVAL HIGH COMPLEX 45 MIN (04/12/20) ROUTINE VENIPUNCTURE (04/12/20) SCR MAMMO BI INCL CAD (11/18/19) SMEAR GRAM STAIN (04/12/20) SUBSEQUENT HOSPITAL CARE (04/12/20) THER/PROPH/DIAG INJ IV PUSH (04/06/20) THER/PROPH/DIAG IV INF INIT (04/12/20) THERAPEUTIC ACTIVITIES (04/12/20) THROMBOPLASTIN TIME PARTIAL (04/06/20) TTE F-UP OR LMTD (01/04/21) TX/PRO/DX INJ NEW DRUG ADDON (04/06/20) ULTRASOUND BREAST LIMITED (11/23/19) URINALYSIS AUTO W/SCOPE (04/12/20) X-RAY EXAM CHEST 1 VIEW (04/12/20) X-RAY EXAM OF FEMUR 2/> (05/02/21) (1) Fracture of clavicle SNOMED Code(s): 86320543 Code(s): S42.009A - FRACTURE OF UNSP PART OF UNSP CLAVICLE, INIT FOR CLOS FX Current Visit: Yes Qualifiers: Encounter type: initial encounter Clavicle location: sternal end Fracture type: closed Fracture alignment: nondisplaced Laterality: left Qualified Code(s): S42.018A - Nondisplaced fracture of sternal end of left clavicle, initial encounter for closed fracture (2) Kavitha-prosthetic femoral shaft fracture SNOMED Code(s): 416114700 Code(s): M97.8XXA - PERIPROSTH FRACTURE AROUND OTHER INTERNAL PROSTH JOINT, INIT; Z96.649 - PRESENCE OF UNSPECIFIED ARTIFICIAL HIP JOINT Current Visit: Yes Problem List Initiated/Reviewed/Updated: Yes My Orders Last 24 Hours: My Active Orders 05/14/21 11:25 Consult to Physical Therapy [PT Evaluation and Treatment] [CONS] Routine 05/14/21 11:28 Consult to Occupational Therapy [OT Evaluation and Treatment] [CONS] Routine 05/14/21 Lunch Cardiac Diet [Heart Healthy Diet] [DIET] 05/14/21 14:57 Acetaminophen/HYDROcodone [[place] 325-5 MG] 1 tab PO Q4H PRN Acetaminophen/oxyCODONE [Percocet 325-5 MG] 1 tab PO Q4H PRN Plan: No surgery is indicated for either fracture at this time. A sling may be used for comfort for the left shoulder and she may use the arm for weight bearing as she tolerates. The left hip prosthesis appears stable. The amount of pain that she is having is concerning and if she is not able to progress with PT further imaging may be needed.
[2021-05-14] MEDS: Cyclobenzaprine 10 MG Tab PO PRN (18:01)
[2021-05-14] MEDS: atorvaSTATin 20 MG Tab PO SCH (21:03)
[2021-05-15] MEDS: Acetaminophen/HYDROcodone 325-5 MG Tab PO PRN ×6 (03:55→21:29)
[2021-05-15] MEDS: HYDROmorphone 0.5 MG/0.5 ML Syringe IVPUSH PRN (04:01)
[2021-05-15] MEDS: Sodium Chloride 0.9% 1,000 ML IV SCH (05:05)
[2021-05-15] MEDS: Cyclobenzaprine 10 MG Tab PO PRN ×2 (07:45→13:51)
[2021-05-15] MEDS: Pantoprazole 40 MG Tab.CR PO SCH ×2 (07:46→17:28)
[2021-05-15] MEDS: Propranolol 40 MG Tab PO SCH ×2 (09:37→21:28)
[2021-05-15] MEDS: Sulfamethoxazole/Trimethoprim 800-160 MG Tab PO SCH ×2 (09:37→21:28)
[2021-05-15] MEDS: Losartan 50 MG Tab PO SCH (09:39)
[2021-05-15] MEDS: Clopidogrel 75 MG Tab PO SCH (10:24)
--- NOTE | 2021-05-15 13:03 | PCM.CONSN ---
- General Info Date of Service: 05/15/21 Admission Dx/Problem (Free Text): Admission Diagnosis/Problem Admission Diagnosis/Problem Pain Left clavicle fracture, medial Left femur periprosthetic fracture, nondisplaced Subjective Update: Pleasant 76 y/o female, ongoing hospitalization for left periprosthetic femur fracture and a left clavicular fracture. Has worked with physical therapy daily, still struggling with any ambulation or weight bearing on left leg. Ability to transfer to edge of bed today improved from transfer ability yesterday. Does have good motion of left arm, able to reach overhead without significant discomfort. Functional Status: Reports: Tolerating Diet - Review of Systems Musculoskeletal: Reports: Shoulder Pain (left ), Arm Pain (left clavicle ), Leg Pain (left thigh) Skin: Reports: Bruising (over proximal left clavicle ) - Patient Data Vitals - Most Recent: Last Vital Signs Temp 97.3 F 05/15/21 11:00 Pulse 93 05/15/21 11:00 Resp 16 05/15/21 11:00 BP 134/58 L 05/15/21 11:00 Pulse Ox 94 L 05/15/21 11:00 Weight - Most Recent: 134 lb 4.184 oz I&O - Last 24 Hours: Intake & Output 05/14/21 05/15/21 05/15/21 22:59 06:59 14:59 Intake Total 1645 1540 Output Total 100 200 Balance 1645 1440 -200 Med Orders - Current: Current Medications Hydrocodone Bitart/Acetaminophen (Acetaminophen/Hydrocodone 325-5 Mg Tab) 1 - 2 tab PO Q4H PRN PRN Reason: Pain Last Admin: 05/15/21 09:37 Dose: 1 tab Documented by: Atorvastatin Calcium (Atorvastatin 20 Mg Tab) 40 mg PO BEDTIME MICHELLE Last Admin: 05/14/21 21:03 Dose: 40 mg Documented by: Clopidogrel Bisulfate (Clopidogrel 75 Mg Tab) 75 mg PO DAILY MICHELLE Last Admin: 05/15/21 10:24 Dose: 75 mg Documented by: Cyclobenzaprine HCl (Cyclobenzaprine 10 Mg Tab) 10 mg PO Q6H PRN PRN Reason: Muscle Spasm - Painful Last Admin: 05/15/21 07:45 Dose: 10 mg Documented by: Hydromorphone HCl (Hydromorphone 0.5 Mg/0.5 Ml Syringe) 0.5 mg IVPUSH Q1H PRN PRN Reason: Pain Last Admin: 05/15/21 04:01 Dose: 0.5 mg Documented by: Losartan Potassium (Losartan 50 Mg Tab) 50 mg PO DAILY [facility] Last Admin: 05/15/21 09:39 Dose: 50 mg Documented by: Ondansetron HCl (Ondansetron 4 Mg/2 Ml Sdv) 4 mg IV Q4H PRN PRN Reason: Nausea/Vomiting Oxycodone/Acetaminophen (Acetaminophen/Oxycodone 325-5 Mg Tab) 1 tab PO Q4H PRN PRN Reason: Pain (severe 7-10) Pantoprazole Sodium (Pantoprazole 40 Mg Tab.Cr) [facility] Last Admin: 05/15/21 07:46 Dose: 40 mg Documented by: Polyethylene Glycol (Polyethylene Glycol 3350 Powder 17 Gm Packet) 17 gm PO DAILY [facility] Propranolol HCl (Propranolol 40 Mg Tab) 40 mg PO BID [facility] Last Admin: 05/15/21 09:37 Dose: 40 mg Documented by: Trimethoprim/Sulfamethoxazole (Sulfamethoxazole/Trimethoprim 800-160 Mg Tab) 1 tab PO BID [facility] Last Admin: 05/15/21 09:37 Dose: 1 tab Documented by: Discontinued Medications Hydrocodone Bitart/Acetaminophen (Acetaminophen/Hydrocodone 325-5 Mg Tab) 1 tab PO Q4H PRN PRN Reason: Pain (moderate 4-6) Last Admin: 05/15/21 07:45 Dose: 1 tab Documented by: Bacitracin (Bacitracin Oint 1 Gm U/D Packet) 1 dose TOP ONETIME ONE Stop: 05/13/21 15:30 Last Admin: 05/13/21 17:17 Dose: 1 dose Documented by: Diphtheria/Tetanus/Acell Pertussis (Diphtheria,Pertussis(Acell),Tetanus Vaccine 0.5 Ml Syringe) 0.5 ml IM .ONCE ONE Stop: 05/13/21 14:02 Last Admin: 05/13/21 17:17 Dose: 0.5 ml Documented by: Hydromorphone HCl (Hydromorphone 0.5 Mg/0.5 Ml Syringe) 0.5 mg IVPUSH ONETIME ONE Stop: 05/13/21 17:02 Last Admin: 05/13/21 17:25 Dose: 0.5 mg Documented by: Sodium Chloride (Normal Saline) 1,000 mls @ 999 mls/hr IV ASDIRECTED [facility] Last Admin: 05/13/21 17:25 Dose: 999 mls/hr Documented by: Sodium Chloride (Normal Saline) 1,000 mls @ 125 mls/hr IV ASDIRECTED [facility] Last Admin: 05/15/21 05:05 Dose: 125 mls/hr Documented by: Lidocaine HCl (Lidocaine 1% 20 Ml Mdv) 20 ml INJECT ONETIME ONE Stop: 05/13/21 15:30 Last Admin: 05/13/21 17:25 Dose: 20 ml Documented by: Ondansetron HCl (Ondansetron 4 Mg/2 Ml Sdv) 4 mg IVPUSH ONETIME ONE Stop: 05/13/21 15:38 Last Admin: 05/13/21 17:25 Dose: 4 mg Documented by: - Exam General: Alert, Oriented, Cooperative, Mild Distress Extremities: Arm Pain (left ), Leg Pain (left ) Skin: Ecchymosis (left proximal end of clavicle ) Neurological: No New Focal Deficit Psy/Mental Status: Alert, Normal Affect, Normal Mood Sepsis Event Note - Evaluation Sepsis Screening Result: Possible Sepsis Risk - Focused Exam Vital Signs: Vital Signs Temp Pulse Resp BP BP Pulse Ox 05/15/21 11:00 97.3 F 93 16 134/58 L 94 L 05/15/21 09:39 147/70 H 05/15/21 07:47 97.6 F 99 16 147/70 H 94 L 05/15/21 02:28 95 F L 65 16 95/44 L 94 L Consult PN Assessment/Plan Procedures: Procedures AIRWAY INHALATION TREATMENT (04/12/20) ASSAY OF LACTIC ACID (04/12/20) ASSAY OF MAGNESIUM (04/12/20) ASSAY OF TROPONIN QUANT (04/06/20) BLOOD CULTURE FOR BACTERIA (04/12/20) BREAST TOMOSYNTHESIS BI (11/18/19) COMPLETE CBC W/AUTO DIFF WBC (04/12/20) COMPREHEN METABOLIC PANEL (04/12/20) CT THORAX DX C- (10/11/19) CULTURE OTHR SPECIMN AEROBIC (04/12/20) ELECTROCARDIOGRAM TRACING (04/06/20) EMERGENCY DEPT VISIT (05/02/21) EMERGENCY DEPT VISIT (04/12/20) EMERGENCY DEPT VISIT (04/12/20) EMERGENCY DEPT VISIT (04/09/19) HOSPITAL DISCHARGE DAY (04/12/20) INITIAL HOSPITAL CARE (04/12/20) METABOLIC PANEL TOTAL CA (04/12/20) PROTHROMBIN TIME (04/06/20) PT EVAL HIGH COMPLEX 45 MIN (04/12/20) ROUTINE VENIPUNCTURE (04/12/20) SCR MAMMO BI INCL CAD (11/18/19) SMEAR GRAM STAIN (04/12/20) SUBSEQUENT HOSPITAL CARE (04/12/20) THER/PROPH/DIAG INJ IV PUSH (04/06/20) THER/PROPH/DIAG IV INF INIT (04/12/20) THERAPEUTIC ACTIVITIES (04/12/20) THROMBOPLASTIN TIME PARTIAL (04/06/20) TTE F-UP OR LMTD (01/04/21) TX/PRO/DX INJ NEW DRUG ADDON (04/06/20) ULTRASOUND BREAST LIMITED (11/23/19) URINALYSIS AUTO W/SCOPE (04/12/20) X-RAY EXAM CHEST 1 VIEW (04/12/20) X-RAY EXAM OF FEMUR 2/> (05/02/21) (1) Fracture of clavicle SNOMED Code(s): 29085677 Code(s): S42.009A - FRACTURE OF UNSP PART OF UNSP CLAVICLE, INIT FOR CLOS FX Current Visit: Yes Qualifiers: Encounter type: initial encounter Clavicle location: sternal end Fracture type: closed Fracture alignment: nondisplaced Laterality: left Qualified Code(s): S42.018A - Nondisplaced fracture of sternal end of left clavicle, initial encounter for closed fracture (2) Kavitha-prosthetic femoral shaft fracture SNOMED Code(s): 490740989 Code(s): M97.8XXA - PERIPROSTH FRACTURE AROUND OTHER INTERNAL PROSTH JOINT, INIT; Z96.649 - PRESENCE OF UNSPECIFIED ARTIFICIAL HIP JOINT Current Visit: Yes Problem List Initiated/Reviewed/Updated: Yes My Orders Last 24 Hours: My Active Orders 05/15/21 08:53 Acetaminophen/HYDROcodone [[place] 325-5 MG] 1 - 2 tab PO Q4H PRN Plan: * Hospitalist to kindly continue medical management of patient. * Continue with current pain regimen; tapered [place] dose adjusted today. See orders for details. * Continue with BID physical therapy and progress ambulation abilities as tolerated. May WBAT on LLE. Due to limited ambulation abilities at this time, continue with Plavix and bilateral lower extremities SCDs for DVT/VTE prophylaxis. * If continued inability/difficulty to bear weight, may need to consider further imaging. * May wear sling as desired for comfort for left clavicle fracture. * When patient is medically stable and ambulation abilities improve, patient would like to discharge to home. Will have support from , also notes chair lift and wheelchair accessibility in their house.
[2021-05-15] MEDS: Polyethylene Glycol 3350 Powder 17 GM Packet PO SCH (13:52)
--- NOTE | 2021-05-15 15:47 | PCM.PN ---
- General Info Date of Service: 05/15/21 Subjective Update: Ms. Elliott has remained stable over the past 24 hours. She has been seen by Dr. Ireland concerning her clavicular and femur fractures. At this time neither fracture requires surgical intervention. Functional Status: Reports: Tolerating Diet, Urinating - Review of Systems General: Reports: No Symptoms Pulmonary: Reports: No Symptoms Cardiovascular: Reports: No Symptoms Gastrointestinal: Reports: No Symptoms Musculoskeletal: Reports: Shoulder Pain, Leg Pain - Patient Data Vitals - Most Recent: Last Vital Signs Temp 97.3 F 05/15/21 11:00 Pulse 93 05/15/21 11:00 Resp 16 05/15/21 11:00 BP 134/58 L 05/15/21 11:00 Pulse Ox 94 L 05/15/21 11:00 Weight - Most Recent: 134 lb 4.184 oz I&O - Last 24 Hours: Intake & Output 05/15/21 05/15/21 05/15/21 06:59 14:59 22:59 Intake Total 1540 Output Total 100 200 Balance 1440 -200 Med Orders - Current: Current Medications Hydrocodone Bitart/Acetaminophen (Acetaminophen/Hydrocodone 325-5 Mg Tab) 1 - 2 tab PO Q4H PRN PRN Reason: Pain Last Admin: 05/15/21 13:49 Dose: 2 tab Documented by: Atorvastatin Calcium (Atorvastatin 20 Mg Tab) 40 mg PO BEDTIME MICHELLE Last Admin: 05/14/21 21:03 Dose: 40 mg Documented by: Clopidogrel Bisulfate (Clopidogrel 75 Mg Tab) 75 mg PO DAILY MICHELLE Last Admin: 05/15/21 10:24 Dose: 75 mg Documented by: Cyclobenzaprine HCl (Cyclobenzaprine 10 Mg Tab) 10 mg PO Q6H PRN PRN Reason: Muscle Spasm - Painful Last Admin: 05/15/21 13:51 Dose: 10 mg Documented by: Hydromorphone HCl (Hydromorphone 0.5 Mg/0.5 Ml Syringe) 0.5 mg IVPUSH Q1H PRN PRN Reason: Pain Last Admin: 05/15/21 04:01 Dose: 0.5 mg Documented by: Losartan Potassium (Losartan 50 Mg Tab) 50 mg PO DAILY MICHELLE Last Admin: 05/15/21 09:39 Dose: 50 mg Documented by: Ondansetron HCl (Ondansetron 4 Mg/2 Ml Sdv) 4 mg IV Q4H PRN PRN Reason: Nausea/Vomiting Oxycodone/Acetaminophen (Acetaminophen/Oxycodone 325-5 Mg Tab) 1 tab PO Q4H PRN PRN Reason: Pain (severe 7-10) Pantoprazole Sodium (Pantoprazole 40 Mg Tab.Cr) 40 mg [facility] Last Admin: 05/15/21 07:46 Dose: 40 mg Documented by: Polyethylene Glycol (Polyethylene Glycol 3350 Powder 17 Gm Packet) 17 gm PO DAILY [facility] Last Admin: 05/15/21 13:52 Dose: 17 gm Documented by: Propranolol HCl (Propranolol 40 Mg Tab) 40 mg PO BID [facility] Last Admin: 05/15/21 09:37 Dose: 40 mg Documented by: Trimethoprim/Sulfamethoxazole (Sulfamethoxazole/Trimethoprim 800-160 Mg Tab) 1 tab PO BID [facility] Last Admin: 05/15/21 09:37 Dose: 1 tab Documented by: Discontinued Medications Hydrocodone Bitart/Acetaminophen (Acetaminophen/Hydrocodone 325-5 Mg Tab) 1 tab PO Q4H PRN PRN Reason: Pain (moderate 4-6) Last Admin: 05/15/21 07:45 Dose: 1 tab Documented by: Bacitracin (Bacitracin Oint 1 Gm U/D Packet) 1 dose TOP ONETIME ONE Stop: 05/13/21 15:30 Last Admin: 05/13/21 17:17 Dose: 1 dose Documented by: Diphtheria/Tetanus/Acell Pertussis (Diphtheria,Pertussis(Acell),Tetanus Vaccine 0.5 Ml Syringe) 0.5 ml IM .ONCE ONE Stop: 05/13/21 14:02 Last Admin: 05/13/21 17:17 Dose: 0.5 ml Documented by: Hydromorphone HCl (Hydromorphone 0.5 Mg/0.5 Ml Syringe) 0.5 mg IVPUSH ONETIME ONE Stop: 05/13/21 17:02 Last Admin: 05/13/21 17:25 Dose: 0.5 mg Documented by: Sodium Chloride (Normal Saline) 1,000 mls @ 999 mls/hr IV ASDIRECTED [facility] Last Admin: 05/13/21 17:25 Dose: 999 mls/hr Documented by: Sodium Chloride (Normal Saline) 1,000 mls @ 125 mls/hr IV ASDIRECTED [facility] Last Admin: 05/15/21 05:05 Dose: 125 mls/hr Documented by: Lidocaine HCl (Lidocaine 1% 20 Ml Mdv) 20 ml INJECT ONETIME ONE Stop: 05/13/21 15:30 Last Admin: 05/13/21 17:25 Dose: 20 ml Documented by: Ondansetron HCl (Ondansetron 4 Mg/2 Ml Sdv) 4 mg IVPUSH ONETIME ONE Stop: 05/13/21 15:38 Last Admin: 05/13/21 17:25 Dose: 4 mg Documented by: - Exam Quality Assessment: DVT Prophylaxis General: Alert, Oriented, Cooperative, Moderate Distress Lungs: Clear to Auscultation, Normal Respiratory Effort Cardiovascular: Regular Rate, Regular Rhythm, No Murmurs GI/Abdominal Exam: Soft, Non-Tender, No Organomegaly, No Distention Extremities: Leg Pain - Patient Data Result Diagrams: 05/13/21 14:07 05/13/21 14:07 Sepsis Event Note - Evaluation Sepsis Screening Result: Possible Sepsis Risk - Focused Exam Vital Signs: Vital Signs Temp Pulse Resp BP BP Pulse Ox 05/15/21 11:00 97.3 F 93 16 134/58 L 94 L 05/15/21 09:39 147/70 H 05/15/21 07:47 97.6 F 99 16 147/70 H 94 L - Problem List Review Problem List Initiated/Reviewed/Updated: Yes - My Orders Last 24 Hours: My Active Orders 05/15/21 11:10 Convert IV to Saline Lock [OM.PC] Routine 05/15/21 12:00 polyethylene glycoL 3350 [MiraLAX] 17 gm PO DAILY - Plan Plan:: ASSESSMENT AND PLAN LEFT FEMUR FRACTURE -Orthopedic follow-up per Dr. Ireland -Saline lock IV -Pain medication as needed LEFT CLAVICULAR FRACTURE -As above HYPERTENSION -Monitor blood pressure during hospitalization -Continue outpatient medications CORONARY ARTERY DISEASE-currently asymptomatic. Status post last angioplasty with stent placement over 1 year ago. -Continue outpatient medications HISTORY OF LUNG CANCER-status post left pneumonectomy MAINTENANCE ISSUES -DVT prophylaxis; SCUDs -GI prophylaxis; not indicated -Baker catheter; not indicated -Nutrition; regular diet -Nicotine dependence; not required CODE STATUS-FULL CODE ADMISSION STATUS-patient will be admitted to inpatient status, expect at least a 2 night hospital stay for evaluation and management of problems as outlined above. At the time of this admission I do not reasonably expected evaluation and management of this problem will require more than a 96 hour hospital stay. DISPOSITION-anticipate discharge to home after the hospital stay. PRIMARY CARE PROVIDER-Dr. Bishop
[2021-05-15] MEDS ORDERED: Magnesium Hydroxide 400 MG/5 ML Susp 30 ML Cup PO ONE (17:41)
[2021-05-15] MEDS: atorvaSTATin 20 MG Tab PO SCH (21:28)
[2021-05-16] MEDS: Acetaminophen/HYDROcodone 325-5 MG Tab PO PRN ×4 (01:47→15:29)
[2021-05-16] MEDS: Losartan 50 MG Tab PO SCH (08:24)
[2021-05-16] MEDS: Polyethylene Glycol 3350 Powder 17 GM Packet PO SCH (08:24)
[2021-05-16] MEDS: Pantoprazole 40 MG Tab.CR PO SCH ×2 (08:25→15:30)
[2021-05-16] MEDS: Clopidogrel 75 MG Tab PO SCH (08:25)
[2021-05-16] MEDS: Propranolol 40 MG Tab PO SCH ×2 (08:25→21:44)
[2021-05-16] MEDS: Sulfamethoxazole/Trimethoprim 800-160 MG Tab PO SCH ×2 (08:25→21:44)
--- NOTE | 2021-05-16 13:26 | PCM.CONSN ---
- General Info Date of Service: 05/16/21 Admission Dx/Problem (Free Text): Admission Diagnosis/Problem Admission Diagnosis/Problem Pain Left clavicle fracture, medial Left femur periprosthetic fracture, nondisplaced Subjective Update: Pleasant 76 y/o female, admitted for nonsurgical management of left clavicle fracture and left periprosthetic femur fracture. Reports energy level improved today. Does continue to endorse pain in the left leg with movement. Was using left arm as tolerated yesterday; does note more of an ache present along proximal clavicle today as a result. Worked with OT this morning and got to edge of bed. Unable to complete ADLs with assistive equipment independently; required frequent verbal cuing. Anticipate PT session this afternoon; agreeable to attempt transfer to chair. Patient continues to require inpatient status at this time for additional therapy services to progress functional mobility of LLE and LUE. Given limited progress and limited functional mobility level, patient would greatly benefit from SNF for daily rehab prior to discharge home. Functional Status: Reports: Tolerating Diet. Denies: Pain Controlled, Ambulating - Review of Systems General: Denies: Weakness, Fatigue Musculoskeletal: Reports: Shoulder Pain (left ), Arm Pain (left ), Leg Pain (left ) Skin: Reports: Bruising (left clavicle ) - Patient Data Vitals - Most Recent: Last Vital Signs Temp 97.3 F 05/16/21 13:10 Pulse 70 05/16/21 13:10 Resp 16 05/16/21 13:10 BP 123/63 05/16/21 13:10 Pulse Ox 95 05/16/21 13:10 Weight - Most Recent: 134 lb 4.184 oz I&O - Last 24 Hours: Intake & Output 05/15/21 05/16/21 05/16/21 22:59 06:59 14:59 Intake Total 240 240 Output Total 1000 650 450 Balance -760 -410 -450 Med Orders - Current: Current Medications Hydrocodone Bitart/Acetaminophen (Acetaminophen/Hydrocodone 325-5 Mg Tab) 1 - 2 tab PO Q4H PRN PRN Reason: Pain Last Admin: 05/16/21 09:35 Dose: 2 tab Documented by: Atorvastatin Calcium (Atorvastatin 20 Mg Tab) 40 mg PO BEDTIME MICHELLE Last Admin: 05/15/21 21:28 Dose: 40 mg Documented by: Clopidogrel Bisulfate (Clopidogrel 75 Mg Tab) 75 mg PO DAILY MICHELLE Last Admin: 05/16/21 08:25 Dose: 75 mg Documented by: Cyclobenzaprine HCl (Cyclobenzaprine 10 Mg Tab) 10 mg PO Q6H PRN PRN Reason: Muscle Spasm - Painful Last Admin: 05/15/21 13:51 Dose: 10 mg Documented by: Hydromorphone HCl (Hydromorphone 0.5 Mg/0.5 Ml Syringe) 0.5 mg IVPUSH Q1H PRN PRN Reason: Pain Last Admin: 05/15/21 04:01 Dose: 0.5 mg Documented by: Losartan Potassium (Losartan 50 Mg Tab) 50 mg PO DAILY [facility] Last Admin: 05/16/21 08:24 Dose: 50 mg Documented by: Ondansetron HCl (Ondansetron 4 Mg/2 Ml Sdv) 4 mg IV Q4H PRN PRN Reason: Nausea/Vomiting Oxycodone/Acetaminophen (Acetaminophen/Oxycodone 325-5 Mg Tab) 1 tab PO Q4H PRN PRN Reason: Pain (severe 7-10) Pantoprazole Sodium ([facility]op[facility]ole 40 Mg Tab.Cr) [facility] Last Admin: 05/16/21 08:25 Dose: 40 mg Documented by: Polyethylene Glycol (Polyethylene Glycol 3350 Powder 17 Gm Packet) 17 gm PO DAILY [facility] Last Admin: 05/16/21 08:24 Dose: 17 gm Documented by: Propranolol HCl (Propranolol 40 Mg Tab) 40 mg PO BID [facility] Last Admin: 05/16/21 08:25 Dose: 40 mg Documented by: Trimethoprim/Sulfamethoxazole (Sulfamethoxazole/Trimethoprim 800-160 Mg Tab) 1 tab PO BID [facility] Last Admin: 05/16/21 08:25 Dose: 1 tab Documented by: Discontinued Medications Hydrocodone Bitart/Acetaminophen (Acetaminophen/Hydrocodone 325-5 Mg Tab) 1 tab PO Q4H PRN PRN Reason: Pain (moderate 4-6) Last Admin: 05/15/21 07:45 Dose: 1 tab Documented by: Bacitracin (Bacitracin Oint 1 Gm U/D Packet) 1 dose TOP ONETIME ONE Stop: 05/13/21 15:30 Last Admin: 05/13/21 17:17 Dose: 1 dose Documented by: Diphtheria/Tetanus/Acell Pertussis (Diphtheria,Pertussis(Acell),Tetanus Vaccine 0.5 Ml Syringe) 0.5 ml IM .ONCE ONE Stop: 05/13/21 14:02 Last Admin: 05/13/21 17:17 Dose: 0.5 ml Documented by: Hydromorphone HCl (Hydromorphone 0.5 Mg/0.5 Ml Syringe) 0.5 mg IVPUSH ONETIME ONE Stop: 05/13/21 17:02 Last Admin: 05/13/21 17:25 Dose: 0.5 mg Documented by: Sodium Chloride (Normal Saline) 1,000 mls @ 999 mls/hr IV ASDIRECTED [facility] Last Admin: 05/13/21 17:25 Dose: 999 mls/hr Documented by: Sodium Chloride (Normal Saline) 1,000 mls @ 125 mls/hr IV ASDIRECTED [facility] Last Admin: 05/15/21 05:05 Dose: 125 mls/hr Documented by: Lidocaine HCl (Lidocaine 1% 20 Ml Mdv) 20 ml INJECT ONETIME ONE Stop: 05/13/21 15:30 Last Admin: 05/13/21 17:25 Dose: 20 ml Documented by: Magnesium Hydroxide (Magnesium Hydroxide 400 Mg/5 Ml Susp 30 Ml Cup) 30 ml PO ONETIME ONE Stop: 05/15/21 17:42 Last Admin: 05/15/21 18:15 Dose: 30 ml Documented by: Ondansetron HCl (Ondansetron 4 Mg/2 Ml Sdv) 4 mg IVPUSH ONETIME ONE Stop: 05/13/21 15:38 Last Admin: 05/13/21 17:25 Dose: 4 mg Documented by: - Exam Quality Assessment: DVT Prophylaxis General: Alert, Oriented, Cooperative, Mild Distress Extremities: Arm Pain (left ), Leg Pain (left ), Limited Range of Motion (left LE, left UE ) Skin: Ecchymosis Neurological: No New Focal Deficit Psy/Mental Status: Alert, Normal Mood Sepsis Event Note - Evaluation Sepsis Screening Result: Possible Sepsis Risk - Focused Exam Vital Signs: Vital Signs Temp Pulse Resp BP BP Pulse Ox 05/16/21 13:10 97.3 F 70 16 123/63 95 05/16/21 08:24 147/56 H 05/16/21 07:40 97.3 F 67 16 147/56 H 97 05/16/21 01:48 96 F L 81 16 107/49 L 91 L Consult PN Assessment/Plan Procedures: Procedures AIRWAY INHALATION TREATMENT (04/12/20) ASSAY OF LACTIC ACID (04/12/20) ASSAY OF MAGNESIUM (04/12/20) ASSAY OF TROPONIN QUANT (04/06/20) BLOOD CULTURE FOR BACTERIA (04/12/20) BREAST TOMOSYNTHESIS BI (11/18/19) COMPLETE CBC W/AUTO DIFF WBC (04/12/20) COMPREHEN METABOLIC PANEL (04/12/20) CT THORAX DX C- (10/11/19) CULTURE OTHR SPECIMN AEROBIC (04/12/20) ELECTROCARDIOGRAM TRACING (04/06/20) EMERGENCY DEPT VISIT (05/02/21) EMERGENCY DEPT VISIT (04/12/20) EMERGENCY DEPT VISIT (04/12/20) EMERGENCY DEPT VISIT (04/09/19) HOSPITAL DISCHARGE DAY (04/12/20) INITIAL HOSPITAL CARE (04/12/20) METABOLIC PANEL TOTAL CA (04/12/20) PROTHROMBIN TIME (04/06/20) PT EVAL HIGH COMPLEX 45 MIN (04/12/20) ROUTINE VENIPUNCTURE (04/12/20) SCR MAMMO BI INCL CAD (11/18/19) SMEAR GRAM STAIN (04/12/20) SUBSEQUENT HOSPITAL CARE (04/12/20) THER/PROPH/DIAG INJ IV PUSH (04/06/20) THER/PROPH/DIAG IV INF INIT (04/12/20) THERAPEUTIC ACTIVITIES (04/12/20) THROMBOPLASTIN TIME PARTIAL (04/06/20) TTE F-UP OR LMTD (01/04/21) TX/PRO/DX INJ NEW DRUG ADDON (04/06/20) ULTRASOUND BREAST LIMITED (11/23/19) URINALYSIS AUTO W/SCOPE (04/12/20) X-RAY EXAM CHEST 1 VIEW (04/12/20) X-RAY EXAM OF FEMUR 2/> (05/02/21) (1) Fracture of clavicle SNOMED Code(s): 18831285 Code(s): S42.009A - FRACTURE OF UNSP PART OF UNSP CLAVICLE, INIT FOR CLOS FX Current Visit: Yes Qualifiers: Encounter type: initial encounter Clavicle location: sternal end Fracture type: closed Fracture alignment: nondisplaced Laterality: left Qualified Code(s): S42.018A - Nondisplaced fracture of sternal end of left clavicle, initial encounter for closed fracture (2) Kavitha-prosthetic femoral shaft fracture SNOMED Code(s): 850063902 Code(s): M97.8XXA - PERIPROSTH FRACTURE AROUND OTHER INTERNAL PROSTH JOINT, INIT; Z96.649 - PRESENCE OF UNSPECIFIED ARTIFICIAL HIP JOINT Current Visit: Yes Problem List Initiated/Reviewed/Updated: Yes Plan: * Hospitalist to kindly continue medical management of patient. * Continue with current pain regimen. * Continue with BID physical therapy and progress ambulation abilities as tolerated. May WBAT on LLE. Due to limited ambulation abilities at this time, continue with Plavix and bilateral lower extremities SCDs for DVT/VTE prophylaxis. * If continued inability/difficulty to bear weight, will get repeat xray of left femur to confirm no change in fracture or hardware placement. * May wear sling as desired for comfort for left clavicle fracture. * When patient is medically stable and functional mobility improves, anticipate discharge to SNF. transportation planner has faxed request to [facility].
[2021-05-16] MEDS ORDERED: Bisacodyl 10 MG Supp RECTAL PRN (16:05)
--- NOTE | 2021-05-16 17:44 | PCM.PN ---
- General Info Date of Service: 05/16/21 Subjective Update: Ms. Elliott has been stable over the last 24 hours. Continues to work with physical therapy on transfers and pivoting. Plan had been for discharged home today with her , patient and her now feel that she would be unable to function at home safely. Functional Status: Reports: Pain Controlled, Tolerating Diet, Urinating - Review of Systems General: Reports: No Symptoms Pulmonary: Reports: No Symptoms Cardiovascular: Reports: No Symptoms Gastrointestinal: Reports: No Symptoms Musculoskeletal: Reports: Shoulder Pain, Leg Pain - Patient Data Vitals - Most Recent: Last Vital Signs Temp 97.3 F 05/16/21 16:53 Pulse 62 05/16/21 16:53 Resp 16 05/16/21 16:53 BP 116/49 L 05/16/21 16:53 Pulse Ox 98 05/16/21 16:53 Weight - Most Recent: 134 lb 4.184 oz I&O - Last 24 Hours: Intake & Output 05/16/21 05/16/21 05/16/21 06:59 14:59 22:59 Intake Total 240 Output Total 650 450 450 Balance -410 -450 -450 Med Orders - Current: Current Medications Hydrocodone Bitart/Acetaminophen (Acetaminophen/Hydrocodone 325-5 Mg Tab) 1 - 2 tab PO Q4H PRN PRN Reason: Pain Last Admin: 05/16/21 15:29 Dose: 2 tab Documented by: Atorvastatin Calcium (Atorvastatin 20 Mg Tab) 40 mg PO BEDTIME [facility] Last Admin: 05/15/21 21:28 Dose: 40 mg Documented by: Bisacodyl (Bisacodyl 10 Mg Supp) 10 mg RECTAL BID PRN PRN Reason: Constipation Last Admin: 05/16/21 16:56 Dose: 10 mg Documented by: Clopidogrel Bisulfate (Clopidogrel 75 Mg Tab) 75 mg PO DAILY [facility] Last Admin: 05/16/21 08:25 Dose: 75 mg Documented by: Cyclobenzaprine HCl (Cyclobenzaprine 10 Mg Tab) 10 mg PO Q6H PRN PRN Reason: Muscle Spasm - Painful Last Admin: 05/15/21 13:51 Dose: 10 mg Documented by: Losartan Potassium (Losartan 50 Mg Tab) 50 mg PO DAILY [facility] Last Admin: 05/16/21 08:24 Dose: 50 mg Documented by: Ondansetron HCl (Ondansetron 4 Mg/2 Ml Sdv) 4 mg IV Q4H PRN PRN Reason: Nausea/Vomiting Last Admin: 05/16/21 13:46 Dose: 4 mg Documented by: Pantoprazole Sodium (Pantoprazole 40 Mg Tab.Cr) [facility] Last Admin: 05/16/21 15:30 Dose: 40 mg Documented by: Polyethylene Glycol (Polyethylene Glycol 3350 Powder 17 Gm Packet) 17 gm PO DAILY [facility] Last Admin: 05/16/21 08:24 Dose: 17 gm Documented by: Propranolol HCl (Propranolol 40 Mg Tab) 40 mg PO BID [facility] Last Admin: 05/16/21 08:25 Dose: 40 mg Documented by: Trimethoprim/Sulfamethoxazole (Sulfamethoxazole/Trimethoprim 800-160 Mg Tab) 1 tab PO BID [facility] Last Admin: 05/16/21 08:25 Dose: 1 tab Documented by: Discontinued Medications Hydrocodone Bitart/Acetaminophen (Acetaminophen/Hydrocodone 325-5 Mg Tab) 1 tab PO Q4H PRN PRN Reason: Pain (moderate 4-6) Last Admin: 05/15/21 07:45 Dose: 1 tab Documented by: Bacitracin (Bacitracin Oint 1 Gm U/D Packet) 1 dose TOP ONETIME ONE Stop: 05/13/21 15:30 Last Admin: 05/13/21 17:17 Dose: 1 dose Documented by: Diphtheria/Tetanus/Acell Pertussis (Diphtheria,Pertussis(Acell),Tetanus Vaccine 0.5 Ml Syringe) 0.5 ml IM .ONCE ONE Stop: 05/13/21 14:02 Last Admin: 05/13/21 17:17 Dose: 0.5 ml Documented by: Hydromorphone HCl (Hydromorphone 0.5 Mg/0.5 Ml Syringe) 0.5 mg IVPUSH ONETIME ONE Stop: 05/13/21 17:02 Last Admin: 05/13/21 17:25 Dose: 0.5 mg Documented by: Hydromorphone HCl (Hydromorphone 0.5 Mg/0.5 Ml Syringe) 0.5 mg IVPUSH Q1H PRN PRN Reason: Pain Last Admin: 05/15/21 04:01 Dose: 0.5 mg Documented by: Sodium Chloride (Normal Saline) 1,000 mls @ 999 mls/hr IV ASDIRECTED [facility] Last Admin: 05/13/21 17:25 Dose: 999 mls/hr Documented by: Sodium Chloride (Normal Saline) 1,000 mls @ 125 mls/hr IV ASDIRECTED [facility] Last Admin: 05/15/21 05:05 Dose: 125 mls/hr Documented by: Lidocaine HCl (Lidocaine 1% 20 Ml Mdv) 20 ml INJECT ONETIME ONE Stop: 05/13/21 15:30 Last Admin: 05/13/21 17:25 Dose: 20 ml Documented by: Magnesium Hydroxide (Magnesium Hydroxide 400 Mg/5 Ml Susp 30 Ml Cup) 30 ml PO ONETIME ONE Stop: 05/15/21 17:42 Last Admin: 05/15/21 18:15 Dose: 30 ml Documented by: Ondansetron HCl (Ondansetron 4 Mg/2 Ml Sdv) 4 mg IVPUSH ONETIME ONE Stop: 05/13/21 15:38 Last Admin: 05/13/21 17:25 Dose: 4 mg Documented by: Oxycodone/Acetaminophen (Acetaminophen/Oxycodone 325-5 Mg Tab) 1 tab PO Q4H PRN PRN Reason: Pain (severe 7-10) - Exam General: Alert, Oriented, Cooperative, Moderate Distress Lungs: Clear to Auscultation, Normal Respiratory Effort Cardiovascular: Regular Rate, Regular Rhythm, No Murmurs GI/Abdominal Exam: Soft, Non-Tender, No Organomegaly, No Distention Extremities: No Pedal Edema, Leg Pain - Patient Data Result Diagrams: 05/13/21 14:07 05/13/21 14:07 Sepsis Event Note - Evaluation Sepsis Screening Result: Possible Sepsis Risk - Focused Exam Vital Signs: Vital Signs Temp Pulse Resp BP BP BP Pulse Ox 05/16/21 16:53 97.3 F 62 16 116/49 L 98 05/16/21 13:10 97.3 F 70 16 123/63 95 05/16/21 08:24 147/56 H 05/16/21 07:40 97.3 F 67 16 147/56 H 97 - Problem List Review Problem List Initiated/Reviewed/Updated: Yes - My Orders Last 24 Hours: My Active Orders 05/16/21 16:05 bisacodyL [Dulcolax] 10 mg RECTAL BID PRN 05/16/21 17:45 Docusate Sodium/Sennosides [Senna Plus] 2 tab PO Q12H - Plan Plan:: ASSESSMENT AND PLAN LEFT FEMUR FRACTURE -Orthopedic follow-up per Dr. Ireland -Saline lock IV -Pain medication as needed -Will require half-way placement LEFT CLAVICULAR FRACTURE -As above HYPERTENSION -Monitor blood pressure during hospitalization -Continue outpatient medications CORONARY ARTERY DISEASE-currently asymptomatic. Status post last angioplasty with stent placement over 1 year ago. -Continue outpatient medications HISTORY OF LUNG CANCER-status post left pneumonectomy MAINTENANCE ISSUES -DVT prophylaxis; SCUDs -GI prophylaxis; not indicated -Baker catheter; not indicated -Nutrition; regular diet -Nicotine dependence; not required CODE STATUS-FULL CODE ADMISSION STATUS-patient will be admitted to inpatient status, expect at least a 2 night hospital stay for evaluation and management of problems as outlined above. At the time of this admission I do not reasonably expected evaluation and management of this problem will require more than a 96 hour hospital stay. DISPOSITION-anticipate discharge to half-way PRIMARY CARE PROVIDER-Dr. Bishop
[2021-05-16] MEDS: atorvaSTATin 20 MG Tab PO SCH (21:44)
[2021-05-17] MEDS: Acetaminophen/HYDROcodone 325-5 MG Tab PO PRN ×4 (07:43→21:03)
[2021-05-17] MEDS: Pantoprazole 40 MG Tab.CR PO SCH ×2 (07:44→16:15)
--- NOTE | 2021-05-17 08:30 | PCM.CONSN ---
- General Info Date of Service: 05/17/21 Admission Dx/Problem (Free Text): Admission Diagnosis/Problem Admission Diagnosis/Problem Pain Left clavicle fracture, medial Left femur periprosthetic fracture, nondisplaced Subjective Update: Wilma 76 y/o female, admitted for management of left clavicle fracture and left periprosthetic femur fracture. Endorsed continued pain in proximal clavicle this morning, does feel improvement in left thigh pain. Has yet to ambulate during hospitalization; sites left leg pain as limiting factor. Sat on edge of bed this morning and tolerated this fairly well; plan to attempt transfer to chair and ambulate a few steps today. Unsure of patient's baseline cognitive function, but she does have some increased confusion per staff reports. Is A&Ox3 this morning. While working with physical therapy yesterday, asked about her flight home. No travel/flight plans per . Also had difficulty following 2 step commands with OT yesterday. Occupational therapy to perform cognitive function testing with patient this morning. Head CT from ER on 05/13/21 showed no acute bleeds. UA at time of admission positive for WBCs; has been taking Septra BID while in hospital. Denied headaches and dysuria this morning. Patient continues to require inpatient status at this time for further assessment of her confusion and for additional physical therapy services to progress functional mobility. Functional Status: Reports: Pain Controlled, Tolerating Diet - Review of Systems General: Denies: Fever, Weakness, Fatigue, Malaise, Chills Musculoskeletal: Reports: Shoulder Pain (left ), Arm Pain (left ), Leg Pain (left ) Neurological: Reports: Confusion - Patient Data Vitals - Most Recent: Last Vital Signs Temp 98.2 F 05/17/21 08:13 Pulse 84 05/17/21 08:13 Resp 16 05/17/21 08:13 BP 142/64 H 05/17/21 08:13 Pulse Ox 98 05/17/21 08:13 Weight - Most Recent: 134 lb 4.184 oz I&O - Last 24 Hours: Intake & Output 05/16/21 05/17/21 05/17/21 22:59 06:59 14:59 Intake Total 860 Output Total 850 Balance 10 Med Orders - Current: Current Medications Hydrocodone Bitart/Acetaminophen (Acetaminophen/Hydrocodone 325-5 Mg Tab) 1 - 2 tab PO Q4H PRN PRN Reason: Pain Last Admin: 05/17/21 07:43 Dose: 2 tab Documented by: Atorvastatin Calcium (Atorvastatin 20 Mg Tab) 40 mg PO BEDTIME [facility] Last Admin: 05/16/21 21:44 Dose: 40 mg Documented by: Bisacodyl (Bisacodyl 10 Mg Supp) 10 mg RECTAL BID PRN PRN Reason: Constipation Last Admin: 05/16/21 16:56 Dose: 10 mg Documented by: Clopidogrel Bisulfate (Clopidogrel 75 Mg Tab) 75 mg PO DAILY [facility] Last Admin: 05/16/21 08:25 Dose: 75 mg Documented by: Cyclobenzaprine HCl (Cyclobenzaprine 10 Mg Tab) 10 mg PO Q6H PRN PRN Reason: Muscle Spasm - Painful Last Admin: 05/15/21 13:51 Dose: 10 mg Documented by: Losartan Potassium (Losartan 50 Mg Tab) 50 mg PO DAILY [facility] Last Admin: 05/16/21 08:24 Dose: 50 mg Documented by: Ondansetron HCl (Ondansetron 4 Mg/2 Ml Sdv) 4 mg IV Q4H PRN PRN Reason: Nausea/Vomiting Last Admin: 05/16/21 13:46 Dose: 4 mg Documented by: Pantoprazole Sodium (Pantoprazole 40 Mg Tab.Cr) 40 mg PO BIDAC [facility] Last Admin: 05/17/21 07:44 Dose: 40 mg Documented by: Polyethylene Glycol (Polyethylene Glycol 3350 Powder 17 Gm Packet) 17 gm PO DAILY [facility] Last Admin: 05/16/21 08:24 Dose: 17 gm Documented by: Propranolol HCl (Propranolol 40 Mg Tab) 40 mg PO BID [facility] Last Admin: 05/16/21 21:44 Dose: 40 mg Documented by: Senna/Docusate Sodium (Docusate Sodium/Sennosides 50-8.6 Mg Tab) 2 tab PO BID [facility] Last Admin: 05/16/21 21:46 Dose: 2 tab Documented by: Trimethoprim/Sulfamethoxazole (Sulfamethoxazole/Trimethoprim 800-160 Mg Tab) 1 tab PO BID [facility] Last Admin: 05/16/21 21:44 Dose: 1 tab Documented by: Discontinued Medications Hydrocodone Bitart/Acetaminophen (Acetaminophen/Hydrocodone 325-5 Mg Tab) 1 tab PO Q4H PRN PRN Reason: Pain (moderate 4-6) Last Admin: 05/15/21 07:45 Dose: 1 tab Documented by: Bacitracin (Bacitracin Oint 1 Gm U/D Packet) 1 dose TOP ONETIME ONE Stop: 05/13/21 15:30 Last Admin: 05/13/21 17:17 Dose: 1 dose Documented by: Diphtheria/Tetanus/Acell Pertussis (Diphtheria,Pertussis(Acell),Tetanus Vaccine 0.5 Ml Syringe) 0.5 ml IM .ONCE ONE Stop: 05/13/21 14:02 Last Admin: 05/13/21 17:17 Dose: 0.5 ml Documented by: Hydromorphone HCl (Hydromorphone 0.5 Mg/0.5 Ml Syringe) 0.5 mg IVPUSH ONETIME ONE Stop: 05/13/21 17:02 Last Admin: 05/13/21 17:25 Dose: 0.5 mg Documented by: Hydromorphone HCl (Hydromorphone 0.5 Mg/0.5 Ml Syringe) 0.5 mg IVPUSH Q1H PRN PRN Reason: Pain Last Admin: 05/15/21 04:01 Dose: 0.5 mg Documented by: Sodium Chloride (Normal Saline) 1,000 mls @ [facility] Last Admin: 05/13/21 17:25 Dose: 999 mls/hr Documented by: Sodium Chloride (Normal Saline) 1,000 mls @ 125 [facility]ls[facility] Last Admin: 05/15/21 05:05 Dose: 125 mls/hr Documented by: Lidocaine HCl (Lidocaine 1% 20 Ml Mdv) 20 ml INJECT ONETIME ONE Stop: 05/13/21 15:30 Last Admin: 05/13/21 17:25 Dose: 20 ml Documented by: Magnesium Hydroxide (Magnesium Hydroxide 400 Mg/5 Ml Susp 30 Ml Cup) 30 ml PO ONETIME ONE Stop: 05/15/21 17:42 Last Admin: 05/15/21 18:15 Dose: 30 ml Documented by: Ondansetron HCl (Ondansetron 4 Mg/2 Ml Sdv) 4 mg IVPUSH ONETIME ONE Stop: 05/13/21 15:38 Last Admin: 05/13/21 17:25 Dose: 4 mg Documented by: Oxycodone/Acetaminophen (Acetaminophen/Oxycodone 325-5 Mg Tab) 1 tab PO Q4H PRN PRN Reason: Pain (severe 7-10) - Exam Quality Assessment: DVT Prophylaxis General: Alert, Oriented, Cooperative, No Acute Distress Extremities: Normal Capillary Refill, Arm Pain (left ), Leg Pain (left ), Limited Range of Motion (LLE, LUE ). No: Pedal Edema, Gabriele's Sign Peripheral Pulses: 2+: Radial (L), Posterior Tibial (L) Skin: Dry, Ecchymosis (proximal left clavicle ) Neurological: No New Focal Deficit Psy/Mental Status: Alert, Normal Mood Sepsis Event Note - Evaluation Sepsis Screening Result: No Definite Risk - Focused Exam Vital Signs: Vital Signs Temp Temp Pulse Resp BP Pulse Ox Pulse Ox 05/17/21 08:13 98.2 F 84 16 142/64 H 98 05/17/21 03:00 35.8 F L 68 16 111/46 L 95 05/16/21 23:48 96.8 F L 05/16/21 22:44 94.6 F L 77 16 99/53 L 94 L 05/16/21 21:00 95 Consult PN Assessment/Plan Procedures: Procedures AIRWAY INHALATION TREATMENT (04/12/20) ASSAY OF LACTIC ACID (04/12/20) ASSAY OF MAGNESIUM (04/12/20) ASSAY OF TROPONIN QUANT (04/06/20) BLOOD CULTURE FOR BACTERIA (04/12/20) BREAST TOMOSYNTHESIS BI (11/18/19) COMPLETE CBC W/AUTO DIFF WBC (04/12/20) COMPREHEN METABOLIC PANEL (04/12/20) CT THORAX DX C- (10/11/19) CULTURE OTHR SPECIMN AEROBIC (04/12/20) ELECTROCARDIOGRAM TRACING (04/06/20) EMERGENCY DEPT VISIT (05/02/21) EMERGENCY DEPT VISIT (04/12/20) EMERGENCY DEPT VISIT (04/12/20) EMERGENCY DEPT VISIT (04/09/19) HOSPITAL DISCHARGE DAY (04/12/20) INITIAL HOSPITAL CARE (04/12/20) METABOLIC PANEL TOTAL CA (04/12/20) PROTHROMBIN TIME (04/06/20) PT EVAL HIGH COMPLEX 45 MIN (04/12/20) ROUTINE VENIPUNCTURE (04/12/20) SCR MAMMO BI INCL CAD (11/18/19) SMEAR GRAM STAIN (04/12/20) SUBSEQUENT HOSPITAL CARE (04/12/20) THER/PROPH/DIAG INJ IV PUSH (04/06/20) THER/PROPH/DIAG IV INF INIT (04/12/20) THERAPEUTIC ACTIVITIES (04/12/20) THROMBOPLASTIN TIME PARTIAL (04/06/20) TTE F-UP OR LMTD (01/04/21) TX/PRO/DX INJ NEW DRUG ADDON (04/06/20) ULTRASOUND BREAST LIMITED (11/23/19) URINALYSIS AUTO W/SCOPE (04/12/20) X-RAY EXAM CHEST 1 VIEW (04/12/20) X-RAY EXAM OF FEMUR 2/> (05/02/21) (1) Fracture of clavicle SNOMED Code(s): 64625288 Code(s): S42.009A - FRACTURE OF UNSP PART OF UNSP CLAVICLE, INIT FOR CLOS FX Current Visit: Yes Qualifiers: Encounter type: initial encounter Clavicle location: sternal end Fracture type: closed Fracture alignment: nondisplaced Laterality: left Qualified Code(s): S42.018A - Nondisplaced fracture of sternal end of left clavicle, initial encounter for closed fracture (2) Kavitha-prosthetic femoral shaft fracture SNOMED Code(s): 900401992 Code(s): M97.8XXA - PERIPROSTH FRACTURE AROUND OTHER INTERNAL PROSTH JOINT, INIT; Z96.649 - PRESENCE OF UNSPECIFIED ARTIFICIAL HIP JOINT Current Visit: Yes Problem List Initiated/Reviewed/Updated: Yes Plan: * Hospitalist to kindly continue medical management of patient. * OT to perform cognitive assessment testing this morning, as patient does seem to be having some increased confusion. * Adjusted pain regimen, as Seneca may be a contributing factor in patient's increased confusion. Tapered Seneca available for moderate and severe pain, Extra strength Tylenol available for mild pain. See orders for dosing instructions. * Continue with BID physical therapy and progress ambulation abilities as tolerated. May WBAT on LLE. Due to limited ambulation abilities at this time, continue with bilateral lower extremities SCDs for DVT/VTE prophylaxis. * May wear sling as desired for comfort for left clavicle fracture. * When patient is medically stable and functional mobility improves, anticipate discharge to SNF when placement available.
[2021-05-17] MEDS ORDERED: Acetaminophen 500 MG Tab PO PRN (09:03)
[2021-05-17] MEDS: Propranolol 40 MG Tab PO SCH ×2 (09:51→20:58)
[2021-05-17] MEDS: Clopidogrel 75 MG Tab PO SCH (09:51)
[2021-05-17] MEDS: Sulfamethoxazole/Trimethoprim 800-160 MG Tab PO SCH (09:52)
[2021-05-17] MEDS: Losartan 50 MG Tab PO SCH (09:52)
[2021-05-17] MEDS: Polyethylene Glycol 3350 Powder 17 GM Packet PO SCH (09:52)
[2021-05-17] MEDS: Cyclobenzaprine 10 MG Tab PO PRN (16:19)
[2021-05-17] MEDS: atorvaSTATin 20 MG Tab PO SCH (20:58)
--- NOTE | 2021-05-17 21:54 | PCM.PN ---
- General Info Date of Service: 05/17/21 Admission Dx/Problem (Free Text): Admission Diagnosis/Problem Admission Diagnosis/Problem Pain Left clavicle fracture, medial Left femur periprosthetic fracture, nondisplaced Subjective Update: Ms. Elliott only has pain in the leg and arm when she is having PT. I did discuss with her that she can ask for her pain medication 30 minutes prior to physical therapy so that she does not have so much pain. Otherwise she is doing very well and her pain is very well managed. She is having no other symptoms. Functional Status: Reports: Pain Controlled, Ambulating - Review of Systems General: Reports: No Symptoms HEENT: Reports: No Symptoms Pulmonary: Reports: No Symptoms Cardiovascular: Reports: No Symptoms Gastrointestinal: Reports: No Symptoms Genitourinary: Reports: No Symptoms Musculoskeletal: Reports: No Symptoms, Other (See subjective) Skin: Reports: No Symptoms Neurological: Reports: No Symptoms Psychiatric: Reports: No Symptoms - Patient Data Vitals - Most Recent: Last Vital Signs Temp 97.0 F 05/17/21 19:00 Pulse 65 05/17/21 19:00 Resp 18 05/17/21 19:00 BP 127/53 L 05/17/21 19:00 Pulse Ox 95 05/17/21 19:30 Weight - Most Recent: 134 lb 4.184 oz I&O - Last 24 Hours: Intake & Output 05/17/21 05/17/21 05/17/21 06:59 14:59 22:59 Intake Total 450 470 Output Total 400 200 Balance 50 270 Med Orders - Current: Current Medications Acetaminophen (Acetaminophen 500 Mg Tab) 1,000 mg PO Q6H PRN PRN Reason: Pain (mild 1-3) Hydrocodone Bitart/Acetaminophen (Acetaminophen/Hydrocodone 325-5 Mg Tab) 1 - 2 tab PO Q4H PRN PRN Reason: Pain Last Admin: 05/17/21 21:03 Dose: 2 tab Documented by: Atorvastatin Calcium (Atorvastatin 20 Mg Tab) 40 mg PO BEDTIME [facility] Last Admin: 05/17/21 20:58 Dose: 40 mg Documented by: Bisacodyl (Bisacodyl 10 Mg Supp) 10 mg RECTAL BID PRN PRN Reason: Constipation Last Admin: 05/16/21 16:56 Dose: 10 mg Documented by: Clopidogrel Bisulfate (Clopidogrel 75 Mg Tab) 75 mg PO DAILY [facility] Last Admin: 05/17/21 09:51 Dose: 75 mg Documented by: Cyclobenzaprine HCl (Cyclobenzaprine 10 Mg Tab) 10 mg PO Q6H PRN PRN Reason: Muscle Spasm - Painful Last Admin: 05/17/21 16:19 Dose: 10 mg Documented by: Losartan Potassium (Losartan 50 Mg Tab) 50 mg PO DAILY [facility] Last Admin: 05/17/21 09:52 Dose: 50 mg Documented by: Ondansetron HCl (Ondansetron 4 Mg/2 Ml Sdv) 4 mg IV Q4H PRN PRN Reason: Nausea/Vomiting Last Admin: 05/16/21 13:46 Dose: 4 mg Documented by: Pantoprazole Sodium (Pantop[facility] 40 [facility] Tab.Cr) [facility] Last Admin: 05/17/21 16:15 Dose: 40 mg Documented by: Polyethylene Glycol (Polyethylene Glycol 3350 Powder 17 Gm Packet) 17 gm PO DAILY [facility] Last Admin: 05/17/21 09:52 Dose: 17 gm Documented by: Propranolol HCl (Propranolol 40 Mg Tab) 40 mg PO BID [facility] Last Admin: 05/17/21 20:58 Dose: 40 mg Documented by: Senna/Docusate Sodium (Docusate Sodium/Sennosides 50-8.6 Mg Tab) 2 tab PO BID [facility] Last Admin: 05/17/21 20:59 Dose: 2 tab Documented by: Discontinued Medications Hydrocodone Bitart/Acetaminophen (Acetaminophen/Hydrocodone 325-5 Mg Tab) 1 tab PO Q4H PRN PRN Reason: Pain (moderate 4-6) Last Admin: 05/15/21 07:45 Dose: 1 tab Documented by: Bacitracin (Bacitracin Oint 1 Gm U/D Packet) 1 dose TOP ONETIME ONE Stop: 05/13/21 15:30 Last Admin: 05/13/21 17:17 Dose: 1 dose Documented by: Diphtheria/Tetanus/Acell Pertussis (Diphtheria,Pertussis(Acell),Tetanus Vaccine 0.5 Ml Syringe) 0.5 ml IM .ONCE ONE Stop: 05/13/21 14:02 Last Admin: 05/13/21 17:17 Dose: 0.5 ml Documented by: Hydromorphone HCl (Hydromorphone 0.5 Mg/0.5 Ml Syringe) 0.5 mg IVPUSH ONETIME ONE Stop: 05/13/21 17:02 Last Admin: 05/13/21 17:25 Dose: 0.5 mg Documented by: Hydromorphone HCl (Hydromorphone 0.5 Mg/0.5 Ml Syringe) 0.5 mg IVPUSH Q1H PRN PRN Reason: Pain Last Admin: 05/15/21 04:01 Dose: 0.5 mg Documented by: Sodium Chloride (Normal Saline) 1,000 mls @ 999 mls/hr IV ASDIRECTED [facility] Last Admin: 05/13/21 17:25 Dose: 999 mls/hr Documented by: Sodium Chloride (Normal Saline) 1,000 mls @ 125 mls/hr IV ASDIRECTED [facility] Last Admin: 05/15/21 05:05 Dose: 125 mls/hr Documented by: Lidocaine HCl (Lidocaine 1% 20 Ml Mdv) 20 ml INJECT ONETIME ONE Stop: 05/13/21 15:30 Last Admin: 05/13/21 17:25 Dose: 20 ml Documented by: Magnesium Hydroxide (Magnesium Hydroxide 400 Mg/5 Ml Susp 30 Ml Cup) 30 ml PO ONETIME ONE Stop: 05/15/21 17:42 Last Admin: 05/15/21 18:15 Dose: 30 ml Documented by: Ondansetron HCl (Ondansetron 4 Mg/2 Ml Sdv) 4 mg IVPUSH ONETIME ONE Stop: 05/13/21 15:38 Last Admin: 05/13/21 17:25 Dose: 4 mg Documented by: Oxycodone/Acetaminophen (Acetaminophen/Oxycodone 325-5 Mg Tab) 1 tab PO Q4H PRN PRN Reason: Pain (severe 7-10) Trimethoprim/Sulfamethoxazole (Sulfamethoxazole/Trimethoprim 800-160 Mg Tab) 1 tab PO BID [facility] Last Admin: 05/17/21 09:52 Dose: 1 tab Documented by: - Exam General: Alert, Oriented, Cooperative HEENT: Pupils Equal, EOMI, Mucous Membr. Moist/[place] Neck: Supple, Trachea Midline Lungs: Clear to Auscultation, Normal Respiratory Effort Cardiovascular: Regular Rate, Regular Rhythm GI/Abdominal Exam: Normal Bowel Sounds, Soft, Non-Tender, No Distention Extremities: No Pedal Edema, Leg Pain, Other (External rotation of the left lower extremity, left upper extremity inflammation of the head of the clavicle) Skin: Warm, Dry, Intact Neurological: No New Focal Deficit Psy/Mental Status: Alert, Normal Affect, Normal Mood - Patient Data Result Diagrams: 05/13/21 14:07 05/13/21 14:07 Sepsis Event Note - Evaluation Sepsis Screening Result: No Definite Risk - Focused Exam Vital Signs: Vital Signs Temp Pulse Resp BP BP Pulse Ox Pulse Ox 05/17/21 19:30 95 05/17/21 19:00 97.0 F 65 18 127/53 L 98 05/17/21 15:07 97.7 F 65 16 106/57 L 97 05/17/21 11:05 97.8 F 60 16 115/38 L 97 05/17/21 09:52 142/64 H - Problem List & Annotations (1) Fracture of clavicle SNOMED Code(s): 93479880 Code(s): S42.009A - FRACTURE OF UNSP PART OF UNSP CLAVICLE, INIT FOR CLOS FX Status: Acute Current Visit: Yes Qualifiers: Encounter type: initial encounter Clavicle location: sternal end Fracture type: closed Fracture alignment: nondisplaced Laterality: left Qualified Code(s): S42.018A - Nondisplaced fracture of sternal end of left clavicle, initial encounter for closed fracture (2) Fracture of left femur SNOMED Code(s): 36484270, [id number] Code(s): S72.92XA - UNSP FRACTURE OF LEFT FEMUR, INIT ENCNTR FOR CLOSED FRACTURE Status: Acute Current Visit: Yes Qualifiers: Encounter type: initial encounter Femur location: shaft Fracture type: closed Fracture morphology: other fracture Qualified Code(s): S72.392A - Other fracture of shaft of left femur, initial encounter for closed fracture Annotation/Comment:: periprosthetic - Problem List Review Problem List Initiated/Reviewed/Updated: Yes - Plan Plan:: ASSESSMENT AND PLAN LEFT FEMUR FRACTURE -Orthopedic follow-up per Dr. Ireland -Saline lock IV -Pain medication as needed -Will require [place] [facility] placement LEFT CLAVICULAR FRACTURE -As above HYPERTENSION -Monitor blood pressure during hospitalization -Continue outpatient medications CORONARY ARTERY DISEASE-currently asymptomatic. Status post last angioplasty with stent placement over 1 year ago. -Continue outpatient medications HISTORY OF LUNG CANCER-status post left pneumonectomy MAINTENANCE ISSUES -DVT prophylaxis; SCUDs -GI prophylaxis; not indicated -Baker catheter; not indicated -Nutrition; regular diet -Nicotine dependence; not required CODE STATUS-FULL CODE Plan: We will have her take pain medications 30 minutes prior to PT so that it is not so painful for her. We will continue to work with her in PT until we can find placement for her. We may have the opportunity to rehabilitate her enough to go home with outpatient rehabilitation prior to finding a bed for her. DISPOSITION-anticipate discharge to [place] [facility] PRIMARY CARE PROVIDER-Dr. Dario Rinaldi, DO
[2021-05-18] MEDS: Acetaminophen/HYDROcodone 325-5 MG Tab PO PRN ×5 (04:50→23:52)
[2021-05-18] MEDS: Pantoprazole 40 MG Tab.CR PO SCH ×2 (07:46→16:28)
--- NOTE | 2021-05-18 08:32 | PCM.CONSN ---
- General Info Date of Service: 05/18/21 Admission Dx/Problem (Free Text): Admission Diagnosis/Problem Admission Diagnosis/Problem Pain Left clavicle fracture, medial Left femur periprosthetic fracture, nondisplaced Subjective Update: Wilma 76 y/o female, hospitalized for ongoing pain management and therapy rehabilitation of left clavicle fracture and left periprosthetic femoral fracture. No acute events overnight. Remains hemodynamically stable, vitals within an acceptable range. Patients HgB is declined at 9.8; down from 14 at time of admission. Patient denied fatigue, dizziness, vision changes, nor dyspnea this morning. Tolerating regular diet well. No nausea or emesis. Patient did complete MMSE with OT yesterday, scoring 25/30. Continues daily physical therapy; ambulation abilities improved yesterday, ambulating 4 feet with FWW and x1 moderate assist. Does require moderate x1 assist to sit up on edge of bed. Patient does endorse left leg pain is improving, although left clavicle pain continues to be a limiting factor. Denied wearing the sling. Is concerned with the visual, palpable defect at proximal clavicle. Communication provided to nursing staff to give patient pain medication 30 minutes prior to PT session to help improve her participation level. Functional Status: Reports: Pain Controlled (at rest ), Tolerating Diet, Urinating - Review of Systems General: Denies: Fever, Weakness, Fatigue, Malaise, Chills, Night Sweats Pulmonary: Denies: Shortness of Breath Cardiovascular: Denies: Chest Pain Gastrointestinal: Denies: Nausea, Vomiting Musculoskeletal: Reports: Arm Pain (left ), Leg Pain (left ) Skin: Reports: Bruising Neurological: Reports: No Symptoms Psychiatric: Reports: No Symptoms - Patient Data Vitals - Most Recent: Last Vital Signs Temp 97.7 F 05/18/21 07:46 Pulse 55 L 05/18/21 07:46 Resp 18 05/18/21 07:46 BP 118/41 L 05/18/21 07:46 Pulse Ox 96 05/18/21 07:46 Weight - Most Recent: 134 lb 4.184 oz I&O - Last 24 Hours: Intake & Output 05/17/21 05/18/21 05/18/21 22:59 06:59 14:59 Intake Total 470 300 Output Total 200 450 Balance 270 -150 Lab Results Last 24 Hours: Laboratory Results - last 24 hr 05/18/21 05/18/21 Range/Units 06:01 06:01 WBC 7.4 (4.5-11.0) K/uL RBC 3.01 L (3.30-5.50) M/uL Hgb 9.8 L D (12.0-15.0) g/dL Hct 30.4 L (36.0-48.0) % MCV 101 H (80-98) fL MCH 33 H (27-31) pg MCHC 32 (32-36) % Plt Count 213 (150-400) K/uL Sodium 139 L (140-148) mmol/L Potassium 4.6 (3.6-5.2) mmol/L Chloride 105 (100-108) mmol/L Carbon Dioxide 25 (21-32) mmol/L Anion Gap 13.6 (5.0-14.0) mmol/L BUN 11 (7-18) mg/dL Creatinine 1.0 (0.6-1.0) mg/dL Est Cr Clr Drug Dosing 45.75 mL/min Estimated GFR (MDRD) 54 L (>60) Glucose 89 (74-106) mg/dL Calcium 8.4 L (8.5-10.1) mg/dL Med Orders - Current: Current Medications Acetaminophen (Acetaminophen 500 Mg Tab) 1,000 mg PO Q6H PRN PRN Reason: Pain (mild 1-3) Hydrocodone Bitart/Acetaminophen (Acetaminophen/Hydrocodone 325-5 Mg Tab) 1 - 2 tab PO Q4H PRN PRN Reason: Pain Last Admin: 05/18/21 04:50 Dose: 2 tab Documented by: Atorvastatin Calcium (Atorvastatin 20 Mg Tab) 40 mg PO BEDTIME [facility] Last Admin: 05/17/21 20:58 Dose: 40 mg Documented by: Bisacodyl (Bisacodyl 10 Mg Supp) 10 mg RECTAL BID PRN PRN Reason: Constipation Last Admin: 05/16/21 16:56 Dose: 10 mg Documented by: Clopidogrel Bisulfate (Clopidogrel 75 Mg Tab) 75 mg PO DAILY [facility] Last Admin: 05/17/21 09:51 Dose: 75 mg Documented by: Cyclobenzaprine HCl (Cyclobenzaprine 10 Mg Tab) 10 mg PO Q6H PRN PRN Reason: Muscle Spasm - Painful Last Admin: 05/17/21 16:19 Dose: 10 mg Documented by: Losartan Potassium (Losartan 50 Mg Tab) 50 mg PO DAILY [facility] Last Admin: 05/17/21 09:52 Dose: 50 mg Documented by: Ondansetron HCl (Ondansetron 4 Mg/2 Ml Sdv) 4 mg IV Q4H PRN PRN Reason: Nausea/Vomiting Last Admin: 05/16/21 13:46 Dose: 4 mg Documented by: Pantoprazole Sodium ([facility] 40 [facility].Cr) [facility] Last Admin: 05/18/21 07:46 Dose: 40 mg Documented by: Polyethylene Glycol (Polyethylene Glycol 3350 Powder 17 Gm Packet) 17 gm PO DAILY [facility] Last Admin: 05/17/21 09:52 Dose: 17 gm Documented by: Propranolol HCl (Propranolol 40 Mg Tab) 40 mg PO BID [facility] Last Admin: 05/17/21 20:58 Dose: 40 mg Documented by: Senna/Docusate Sodium (Docusate Sodium/Sennosides 50-8.6 Mg Tab) 2 tab PO BID [facility] Last Admin: 05/17/21 20:59 Dose: 2 tab Documented by: Discontinued Medications Hydrocodone Bitart/Acetaminophen (Acetaminophen/Hydrocodone 325-5 Mg Tab) 1 tab PO Q4H PRN PRN Reason: Pain (moderate 4-6) Last Admin: 05/15/21 07:45 Dose: 1 tab Documented by: Bacitracin (Bacitracin Oint 1 Gm U/D Packet) 1 dose TOP ONETIME ONE Stop: 05/13/21 15:30 Last Admin: 05/13/21 17:17 Dose: 1 dose Documented by: Diphtheria/Tetanus/Acell Pertussis (Diphtheria,Pertussis(Acell),Tetanus Vaccine 0.5 Ml Syringe) 0.5 ml IM .ONCE ONE Stop: 05/13/21 14:02 Last Admin: 05/13/21 17:17 Dose: 0.5 ml Documented by: Hydromorphone HCl (Hydromorphone 0.5 Mg/0.5 Ml Syringe) 0.5 mg IVPUSH ONETIME ONE Stop: 05/13/21 17:02 Last Admin: 05/13/21 17:25 Dose: 0.5 mg Documented by: Hydromorphone HCl (Hydromorphone 0.5 Mg/0.5 Ml Syringe) 0.5 mg IVPUSH Q1H PRN PRN Reason: Pain Last Admin: 05/15/21 04:01 Dose: 0.5 mg Documented by: Sodium Chloride (Normal Saline) 1,000 mls @ 999 mls/hr IV ASDIRECTED [facility] Last Admin: 05/13/21 17:25 Dose: 999 mls/hr Documented by: Sodium Chloride (Normal Saline) 1,000 mls @ 125 mls/hr IV ASDIRECTED [facility] Last Admin: 05/15/21 05:05 Dose: 125 mls/hr Documented by: Lidocaine HCl (Lidocaine 1% 20 Ml Mdv) 20 ml INJECT ONETIME ONE Stop: 05/13/21 15:30 Last Admin: 05/13/21 17:25 Dose: 20 ml Documented by: Magnesium Hydroxide (Magnesium Hydroxide 400 Mg/5 Ml Susp 30 Ml Cup) 30 ml PO ONETIME ONE Stop: 05/15/21 17:42 Last Admin: 05/15/21 18:15 Dose: 30 ml Documented by: Ondansetron HCl (Ondansetron 4 Mg/2 Ml Sdv) 4 mg IVPUSH ONETIME ONE Stop: 05/13/21 15:38 Last Admin: 05/13/21 17:25 Dose: 4 mg Documented by: Oxycodone/Acetaminophen (Acetaminophen/Oxycodone 325-5 Mg Tab) 1 tab PO Q4H PRN PRN Reason: Pain (severe 7-10) Trimethoprim/Sulfamethoxazole (Sulfamethoxazole/Trimethoprim 800-160 Mg Tab) 1 tab PO BID [facility] Last Admin: 05/17/21 09:52 Dose: 1 tab Documented by: - Exam Quality Assessment: DVT Prophylaxis General: Alert, Oriented, Cooperative, No Acute Distress Extremities: No Pedal Edema, Normal Capillary Refill, Arm Pain (left ), Leg Pain (left ), Limited Range of Motion. No: Gabriele's Sign Peripheral Pulses: 2+: Radial (L), Posterior Tibial (L) Skin: Ecchymosis Neurological: No New Focal Deficit Psy/Mental Status: Alert, Normal Affect, Normal Mood Sepsis Event Note - Evaluation Sepsis Screening Result: No Definite Risk - Focused Exam Vital Signs: Vital Signs Temp Temp Pulse Resp BP Pulse Ox 05/18/21 07:46 97.7 F 55 L 18 118/41 L 96 05/18/21 04:00 97.3 F 64 18 129/53 L 95 05/17/21 23:00 96.4 F L 60 18 104/57 L 97 Consult PN Assessment/Plan Procedures: Procedures AIRWAY INHALATION TREATMENT (04/12/20) ASSAY OF LACTIC ACID (04/12/20) ASSAY OF MAGNESIUM (04/12/20) ASSAY OF TROPONIN QUANT (04/06/20) BLOOD CULTURE FOR BACTERIA (04/12/20) BREAST TOMOSYNTHESIS BI (11/18/19) COMPLETE CBC W/AUTO DIFF WBC (04/12/20) COMPREHEN METABOLIC PANEL (04/12/20) CT THORAX DX C- (10/11/19) CULTURE OTHR SPECIMN AEROBIC (04/12/20) ELECTROCARDIOGRAM TRACING (04/06/20) EMERGENCY DEPT VISIT (05/02/21) EMERGENCY DEPT VISIT (04/12/20) EMERGENCY DEPT VISIT (04/12/20) EMERGENCY DEPT VISIT (04/09/19) HOSPITAL DISCHARGE DAY (04/12/20) INITIAL HOSPITAL CARE (04/12/20) METABOLIC PANEL TOTAL CA (04/12/20) PROTHROMBIN TIME (04/06/20) PT EVAL HIGH COMPLEX 45 MIN (04/12/20) ROUTINE VENIPUNCTURE (04/12/20) SCR MAMMO BI INCL CAD (11/18/19) SMEAR GRAM STAIN (04/12/20) SUBSEQUENT HOSPITAL CARE (04/12/20) THER/PROPH/DIAG INJ IV PUSH (04/06/20) THER/PROPH/DIAG IV INF INIT (04/12/20) THERAPEUTIC ACTIVITIES (04/12/20) THROMBOPLASTIN TIME PARTIAL (04/06/20) TTE F-UP OR LMTD (01/04/21) TX/PRO/DX INJ NEW DRUG ADDON (04/06/20) ULTRASOUND BREAST LIMITED (11/23/19) URINALYSIS AUTO W/SCOPE (04/12/20) X-RAY EXAM CHEST 1 VIEW (04/12/20) X-RAY EXAM OF FEMUR 2/> (05/02/21) (1) Fracture of clavicle SNOMED Code(s): 21176570 Code(s): S42.009A - FRACTURE OF UNSP PART OF UNSP CLAVICLE, INIT FOR CLOS FX Current Visit: Yes Qualifiers: Encounter type: initial encounter Clavicle location: sternal end Fracture type: closed Fracture alignment: nondisplaced Laterality: left Qualified Code(s): S42.018A - Nondisplaced fracture of sternal end of left clavicle, initial encounter for closed fracture (2) Kavitha-prosthetic femoral shaft fracture SNOMED Code(s): 233131396 Code(s): M97.8XXA - PERIPROSTH FRACTURE AROUND OTHER INTERNAL PROSTH JOINT, INIT; Z96.649 - PRESENCE OF UNSPECIFIED ARTIFICIAL HIP JOINT Current Visit: Yes (3) Anemia SNOMED Code(s): 900098658 Code(s): D64.9 - ANEMIA, UNSPECIFIED Current Visit: Yes Problem List Initiated/Reviewed/Updated: Yes My Orders Last 24 Hours: My Active Orders 05/17/21 09:03 Acetaminophen [Tylenol Extra Strength] 1,000 mg PO Q6H PRN Plan: * Hospitalist to kindly continue medical management of patient. * Continue with current pain regimen; please provide patient with pain medications 30 minutes prior to therapy services. * Continue with BID physical therapy and daily occupational therapy services. Progress ambulation abilities as tolerated. May WBAT on LLE. Due to limited ambulation abilities at this time, continue with bilateral lower extremities SCDs for DVT/VTE prophylaxis. * As patient is having increased pain in left clavicle, encouraged to wear sling as desired for comfort. May continue to use left arm as able, sling is an option for rest/comfort as desired by patient, but not a requirement to have on. * When patient is medically stable, anticipate discharge to SNF when placement available. Multiple referrals have been faxed, no bed availability at this time. Due to limited functional mobility, patient is not safe for discharge to home and requires inpatient status until placement is available.
[2021-05-18] MEDS: Clopidogrel 75 MG Tab PO SCH (10:30)
[2021-05-18] MEDS: Polyethylene Glycol 3350 Powder 17 GM Packet PO SCH (10:30)
[2021-05-18] MEDS: Losartan 50 MG Tab PO SCH (11:41)
[2021-05-18] MEDS: Propranolol 40 MG Tab PO SCH ×2 (11:41→20:44)
--- NOTE | 2021-05-18 19:18 | PCM.PN ---
- General Info Date of Service: 05/18/21 Admission Dx/Problem (Free Text): Admission Diagnosis/Problem Admission Diagnosis/Problem Pain Left clavicle fracture, medial Left femur periprosthetic fracture, nondisplaced Subjective Update: Ms. Elliott is doing well today. Taking the pain medication prior to PT did help her she stated. I did have to do a peer to peer today to get her stay covered and they agreed to cover it as observation. Because of this I did talk t o her about bringing in her home medications so that we can use those as this will likely not be covered under her insurance. Functional Status: Reports: Pain Controlled, Tolerating Diet, Ambulating. Denies: New Symptoms - Review of Systems General: Reports: No Symptoms HEENT: Reports: No Symptoms Pulmonary: Reports: No Symptoms Cardiovascular: Reports: No Symptoms Gastrointestinal: Reports: No Symptoms Genitourinary: Reports: No Symptoms Musculoskeletal: Reports: Neck Pain, Leg Pain, Joint Pain Neurological: Reports: No Symptoms Psychiatric: Reports: No Symptoms - Patient Data Vitals - Most Recent: Last Vital Signs Temp 97.9 F 05/18/21 19:02 Pulse 75 05/18/21 19:02 Resp 16 05/18/21 19:02 BP 127/54 L 05/18/21 19:02 Pulse Ox 96 05/18/21 19:02 Weight - Most Recent: 134 lb 4.184 oz I&O - Last 24 Hours: Intake & Output 05/18/21 05/18/21 05/18/21 06:59 14:59 22:59 Intake Total 300 700 240 Output Total 450 600 Balance -150 100 240 Lab Results Last 24 Hours: Laboratory Results - last 24 hr 05/18/21 05/18/21 Range/Units 06:01 06:01 WBC 7.4 (4.5-11.0) K/uL RBC 3.01 L (3.30-5.50) M/uL Hgb 9.8 L D (12.0-15.0) g/dL Hct 30.4 L (36.0-48.0) % MCV 101 H (80-98) fL MCH 33 H (27-31) pg MCHC 32 (32-36) % Plt Count 213 (150-400) K/uL Sodium 139 L (140-148) mmol/L Potassium 4.6 (3.6-5.2) mmol/L Chloride 105 (100-108) mmol/L Carbon Dioxide 25 (21-32) mmol/L Anion Gap 13.6 (5.0-14.0) mmol/L BUN 11 (7-18) mg/dL Creatinine 1.0 (0.6-1.0) mg/dL Est Cr Clr Drug Dosing 45.75 mL/min Estimated GFR (MDRD) 54 L (>60) Glucose 89 (74-106) mg/dL Calcium 8.4 L (8.5-10.1) mg/dL Med Orders - Current: Current Medications Acetaminophen (Acetaminophen 500 Mg Tab) 1,000 mg PO Q6H PRN PRN Reason: Pain (mild 1-3) Hydrocodone Bitart/Acetaminophen (Acetaminophen/Hydrocodone 325-5 Mg Tab) 1 - 2 tab PO Q4H PRN PRN Reason: Pain Last Admin: 05/18/21 13:38 Dose: 2 tab Documented by: Atorvastatin Calcium (Atorvastatin 20 Mg Tab) 40 mg PO BEDTIME [facility] Last Admin: 05/17/21 20:58 Dose: 40 mg Documented by: Bisacodyl (Bisacodyl 10 Mg Supp) 10 mg RECTAL BID PRN PRN Reason: Constipation Last Admin: 05/16/21 16:56 Dose: 10 mg Documented by: Clopidogrel Bisulfate (Clopidogrel 75 Mg Tab) 75 mg PO DAILY [facility] Last Admin: 05/18/21 10:30 Dose: 75 mg Documented by: Cyclobenzaprine HCl (Cyclobenzaprine 10 Mg Tab) 10 mg PO Q6H PRN PRN Reason: Muscle Spasm - Painful Last Admin: 05/17/21 16:19 Dose: 10 mg Documented by: Losartan Potassium (Losartan 50 Mg Tab) 50 mg PO DAILY [facility] Last Admin: 05/18/21 11:41 Dose: Not Given Documented by: Ondansetron HCl (Ondansetron 4 Mg/2 Ml Sdv) 4 mg IV Q4H PRN PRN Reason: Nausea/Vomiting Last Admin: 05/16/21 13:46 Dose: 4 mg Documented by: Pantoprazole Sodium (Pantoprazole 40 Mg Tab.Cr) 40 mg PO BIDAC [facility] Last Admin: 05/18/21 16:28 Dose: 40 mg Documented by: Polyethylene Glycol (Polyethylene Glycol 3350 Powder 17 Gm Packet) 17 gm PO DAILY [facility] Last Admin: 05/18/21 10:30 Dose: 17 gm Documented by: Propranolol HCl (Propranolol 40 Mg Tab) 40 mg PO BID [facility] Last Admin: 05/18/21 11:41 Dose: Not Given Documented by: Senna/Docusate Sodium (Docusate Sodium/Sennosides 50-8.6 Mg Tab) 2 tab PO BID [facility] Last Admin: 05/18/21 10:30 Dose: 2 tab Documented by: Discontinued Medications Hydrocodone Bitart/Acetaminophen (Acetaminophen/Hydrocodone 325-5 Mg Tab) 1 tab PO Q4H PRN PRN Reason: Pain (moderate 4-6) Last Admin: 05/15/21 07:45 Dose: 1 tab Documented by: Bacitracin (Bacitracin Oint 1 Gm U/D Packet) 1 dose TOP ONETIME ONE Stop: 05/13/21 15:30 Last Admin: 05/13/21 17:17 Dose: 1 dose Documented by: Diphtheria/Tetanus/Acell Pertussis (Diphtheria,Pertussis(Acell),Tetanus Vaccine 0.5 Ml Syringe) 0.5 ml IM .ONCE ONE Stop: 05/13/21 14:02 Last Admin: 05/13/21 17:17 Dose: 0.5 ml Documented by: Hydromorphone HCl (Hydromorphone 0.5 Mg/0.5 Ml Syringe) 0.5 mg IVPUSH ONETIME ONE Stop: 05/13/21 17:02 Last Admin: 05/13/21 17:25 Dose: 0.5 mg Documented by: Hydromorphone HCl (Hydromorphone 0.5 Mg/0.5 Ml Syringe) 0.5 mg IVPUSH Q1H PRN PRN Reason: Pain Last Admin: 05/15/21 04:01 Dose: 0.5 mg Documented by: Sodium Chloride (Normal Saline) 1,000 mls @ 999 mls/hr IV ASDIRECTED [facility] Last Admin: 05/13/21 17:25 Dose: 999 mls/hr Documented by: Sodium Chloride (Normal Saline) 1,000 mls @ 125 mls/hr IV ASDIRECTED [facility] Last Admin: 05/15/21 05:05 Dose: 125 mls/hr Documented by: Lidocaine HCl (Lidocaine 1% 20 Ml Mdv) 20 ml INJECT ONETIME ONE Stop: 08/15/21 15:30 Last Admin: 05/13/21 17:25 Dose: 20 ml Documented by: Magnesium Hydroxide (Magnesium Hydroxide 400 Mg/5 Ml Susp 30 Ml Cup) 30 ml PO ONETIME ONE Stop: 05/15/21 17:42 Last Admin: 05/15/21 18:15 Dose: 30 ml Documented by: Ondansetron HCl (Ondansetron 4 Mg/2 Ml Sdv) 4 mg IVPUSH ONETIME ONE Stop: 05/13/21 15:38 Last Admin: 05/13/21 17:25 Dose: 4 mg Documented by: Oxycodone/Acetaminophen (Acetaminophen/Oxycodone 325-5 Mg Tab) 1 tab PO Q4H PRN PRN Reason: Pain (severe 7-10) Trimethoprim/Sulfamethoxazole (Sulfamethoxazole/Trimethoprim 800-160 Mg Tab) 1 tab PO BID [facility] Last Admin: 05/17/21 09:52 Dose: 1 tab Documented by: - Exam General: Alert, Oriented, Cooperative, No Acute Distress HEENT: Pupils Equal, EOMI, Mucous Membr. Moist/[place] Neck: Supple, Trachea Midline Lungs: Clear to Auscultation, Normal Respiratory Effort Cardiovascular: Regular Rate, Regular Rhythm GI/Abdominal Exam: Normal Bowel Sounds, Soft, Non-Tender, No Distention Back Exam: Normal Inspection, Other (Bruising from the laceration on the posterior scalp down the posterior aspect of the left auricle and down the left side of the neck with tenderness to touch) Extremities: No Pedal Edema, Leg Pain Skin: Warm, Dry, Intact, Ecchymosis Wound/Incisions: Healing Well, Other (She has not been able to shower so there is crusty blood in the hair however the stitches are intact on the posterior aspect of her head no significant redness or swelling noted) Neurological: No New Focal Deficit Psy/Mental Status: Alert, Normal Affect, Normal Mood - Patient Data Lab Results Last 24 hrs: Laboratory Results - last 24 hr 05/18/21 05/18/21 Range/Units 06:01 06:01 WBC 7.4 (4.5-11.0) K/uL RBC 3.01 L (3.30-5.50) M/uL Hgb 9.8 L D (12.0-15.0) g/dL Hct 30.4 L (36.0-48.0) % MCV 101 H (80-98) fL MCH 33 H (27-31) pg MCHC 32 (32-36) % Plt Count 213 (150-400) K/uL Sodium 139 L (140-148) mmol/L Potassium 4.6 (3.6-5.2) mmol/L Chloride 105 (100-108) mmol/L Carbon Dioxide 25 (21-32) mmol/L Anion Gap 13.6 (5.0-14.0) mmol/L BUN 11 (7-18) mg/dL Creatinine 1.0 (0.6-1.0) mg/dL Est Cr Clr Drug Dosing 45.75 mL/min Estimated GFR (MDRD) 54 L (>60) Glucose 89 (74-106) mg/dL Calcium 8.4 L (8.5-10.1) mg/dL Result Diagrams: 05/18/21 06:01 05/18/21 06:01 Sepsis Event Note - Evaluation Sepsis Screening Result: No Definite Risk - Focused Exam Vital Signs: Vital Signs Temp Temp Pulse Resp BP Pulse Ox 05/18/21 19:02 97.9 F 75 16 127/54 L 96 05/18/21 16:25 97.9 F 63 16 108/41 L 95 05/18/21 11:39 97.5 F 55 L 18 116/42 L 96 05/18/21 07:46 97.7 F 55 L 18 118/41 L 96 - Problem List & Annotations (1) Fracture of clavicle SNOMED Code(s): 19898488 Code(s): S42.009A - FRACTURE OF UNSP PART OF UNSP CLAVICLE, INIT FOR CLOS FX Status: Acute Current Visit: Yes Qualifiers: Encounter type: initial encounter Clavicle location: sternal end Fracture type: closed Fracture alignment: nondisplaced Laterality: left Qualified Code(s): S42.018A - Nondisplaced fracture of sternal end of left clavicle, initial encounter for closed fracture (2) Fracture of left femur SNOMED Code(s): 31135777, [id number] Code(s): S72.92XA - UNSP FRACTURE OF LEFT FEMUR, INIT ENCNTR FOR CLOSED FRACTURE Status: Acute Current Visit: Yes Qualifiers: Encounter type: initial encounter Femur location: shaft Fracture type: closed Fracture morphology: other fracture Qualified Code(s): S72.392A - Other fracture of shaft of left femur, initial encounter for closed fracture Annotation/Comment:: periprosthetic - Problem List Review Problem List Initiated/Reviewed/Updated: Yes - Plan Plan:: ASSESSMENT AND PLAN LEFT FEMUR FRACTURE -Orthopedic follow-up per Dr. Ireland -Saline lock IV -Pain medication as needed -Will require halfway placement LEFT CLAVICULAR FRACTURE -As above SCALP LACERATION - stitches intact, no significant redness or swelling noted -Will need stitches removed likely at 7 days HYPERTENSION -Monitor blood pressure during hospitalization -Continue outpatient medications CORONARY ARTERY DISEASE-currently asymptomatic. Status post last angioplasty with stent placement over 1 year ago. -Continue outpatient medications HISTORY OF LUNG CANCER-status post left pneumonectomy MAINTENANCE ISSUES -DVT prophylaxis; SCUDs -GI prophylaxis; not indicated -Baker catheter; not indicated -Nutrition; regular diet -Nicotine dependence; not required CODE STATUS-FULL CODE Plan: We will continue to work with her in PT until we can find placement for her. PT continues to recommend rehabilitation after discharge. DISPOSITION-anticipate discharge to halfway PRIMARY CARE PROVIDER-Dr. Dario Rinaldi, DO
[2021-05-18] MEDS: Cyclobenzaprine 10 MG Tab PO PRN (19:28)
[2021-05-18] MEDS: atorvaSTATin 20 MG Tab PO SCH (20:44)
[2021-05-19] MEDS: Cyclobenzaprine 10 MG Tab PO PRN ×3 (03:38→16:31)
[2021-05-19] MEDS: Acetaminophen/HYDROcodone 325-5 MG Tab PO PRN ×5 (05:43→22:42)
[2021-05-19] MEDS: Pantoprazole 40 MG Tab.CR PO SCH ×2 (07:56→16:31)
[2021-05-19] MEDS: Clopidogrel 75 MG Tab PO SCH (08:00)
[2021-05-19] MEDS: Propranolol 40 MG Tab PO SCH ×2 (08:00→20:27)
[2021-05-19] MEDS: Losartan 50 MG Tab PO SCH (08:00)
[2021-05-19] MEDS: Polyethylene Glycol 3350 Powder 17 GM Packet PO SCH (08:01)
--- NOTE | 2021-05-19 20:20 | PCM.PN ---
- General Info Date of Service: 05/19/21 Admission Dx/Problem (Free Text): Admission Diagnosis/Problem Admission Diagnosis/Problem Pain Left clavicle fracture, medial Left femur periprosthetic fracture, nondisplaced Subjective Update: Ms. Elliott is having difficulty with PT. She is not bathed since being here and she still has dried blood in her hair and around the stitches. I advised her that her nurse will be helping her clean the area as it should be being cleaned twice daily. She stated that she would work with her nurse to do this. Besides the pain in her leg with physical therapy she has no complaints Functional Status: Reports: Tolerating Diet - Review of Systems General: Reports: No Symptoms HEENT: Reports: No Symptoms Pulmonary: Reports: No Symptoms Cardiovascular: Reports: No Symptoms Gastrointestinal: Reports: No Symptoms Genitourinary: Reports: No Symptoms Musculoskeletal: Reports: Leg Pain Skin: Reports: No Symptoms Neurological: Reports: No Symptoms Psychiatric: Reports: No Symptoms - Patient Data Vitals - Most Recent: Last Vital Signs Temp 96.6 F L 05/19/21 18:25 Pulse 82 05/19/21 18:25 Resp 18 05/19/21 18:25 BP 125/53 L 05/19/21 18:25 Pulse Ox 94 L 05/19/21 18:25 Weight - Most Recent: 134 lb 4.184 oz I&O - Last 24 Hours: Intake & Output 05/19/21 05/19/21 05/19/21 06:59 14:59 22:59 Intake Total 350 120 Output Total 300 250 700 Balance -300 100 -580 Lab Results Last 24 Hours: Laboratory Results - last 24 hr 05/19/21 05/19/21 Range/Units 05:45 05:45 WBC 8.4 (4.5-11.0) K/uL RBC 3.20 L (3.30-5.50) M/uL Hgb 10.5 L (12.0-15.0) g/dL Hct 32.2 L (36.0-48.0) % MCV 101 H (80-98) fL MCH 33 H (27-31) pg MCHC 33 (32-36) % Plt Count 228 (150-400) K/uL Sodium 141 (140-148) mmol/L Potassium 4.7 (3.6-5.2) mmol/L Chloride 104 (100-108) mmol/L Carbon Dioxide 26 (21-32) mmol/L Anion Gap 11.4 (5.0-14.0) mmol/L BUN 12 (7-18) mg/dL Creatinine 0.9 (0.6-1.0) mg/dL Est Cr Clr Drug Dosing 50.84 mL/min Estimated GFR (MDRD) > 60 (>60) Glucose 93 (74-106) mg/dL Calcium 8.4 L (8.5-10.1) mg/dL Med Orders - Current: Current Medications Acetaminophen (Acetaminophen 500 Mg Tab) 1,000 mg PO Q6H PRN PRN Reason: Pain (mild 1-3) Hydrocodone Bitart/Acetaminophen (Acetaminophen/Hydrocodone 325-5 Mg Tab) 1 - 2 tab PO Q4H PRN PRN Reason: Pain Last Admin: 05/19/21 18:29 Dose: 2 tab Documented by: Atorvastatin Calcium (Atorvastatin 20 Mg Tab) 40 mg PO BEDTIME [facility] Last Admin: 05/18/21 20:44 Dose: 40 mg Documented by: Bisacodyl (Bisacodyl 10 Mg Supp) 10 mg RECTAL BID PRN PRN Reason: Constipation Last Admin: 05/16/21 16:56 Dose: 10 mg Documented by: Clopidogrel Bisulfate (Clopidogrel 75 Mg Tab) 75 mg PO DAILY [facility] Last Admin: 05/19/21 08:00 Dose: 75 mg Documented by: Cyclobenzaprine HCl (Cyclobenzaprine 10 Mg Tab) 10 mg PO Q6H PRN PRN Reason: Muscle Spasm - Painful Last Admin: 05/19/21 16:31 Dose: 10 mg Documented by: Losartan Potassium (Losartan 50 Mg Tab) 50 mg PO DAILY [facility] Last Admin: 05/19/21 08:00 Dose: 50 mg Documented by: Ondansetron HCl (Ondansetron 4 Mg/2 Ml Sdv) 4 mg IV Q4H PRN PRN Reason: Nausea/Vomiting Last Admin: 05/16/21 13:46 Dose: 4 mg Documented by: Pantoprazole Sodium (Pantoprazole 40 Mg Tab.Cr) 40 mg PO BIDAC [facility] Last Admin: 05/19/21 16:31 Dose: 40 mg Documented by: Polyethylene Glycol (Polyethylene Glycol 3350 Powder 17 Gm Packet) 17 gm PO DAILY [facility] Last Admin: 05/19/21 08:01 Dose: 17 gm Documented by: Propranolol HCl (Propranolol 40 Mg Tab) 40 mg PO BID [facility] Last Admin: 05/19/21 08:00 Dose: 40 mg Documented by: Senna/Docusate Sodium (Docusate Sodium/Sennosides 50-8.6 Mg Tab) 2 tab PO BID [facility] Last Admin: 05/19/21 08:01 Dose: 2 tab Documented by: Discontinued Medications Hydrocodone Bitart/Acetaminophen (Acetaminophen/Hydrocodone 325-5 Mg Tab) 1 tab PO Q4H PRN PRN Reason: Pain (moderate 4-6) Last Admin: 05/15/21 07:45 Dose: 1 tab Documented by: Bacitracin (Bacitracin Oint 1 Gm U/D Packet) 1 dose TOP ONETIME ONE Stop: 05/13/21 15:30 Last Admin: 05/13/21 17:17 Dose: 1 dose Documented by: Diphtheria/Tetanus/Acell Pertussis (Diphtheria,Pertussis(Acell),Tetanus Vaccine 0.5 Ml Syringe) 0.5 ml IM .ONCE ONE Stop: 05/13/21 14:02 Last Admin: 05/13/21 17:17 Dose: 0.5 ml Documented by: Hydromorphone HCl (Hydromorphone 0.5 Mg/0.5 Ml Syringe) 0.5 mg IVPUSH ONETIME ONE Stop: 05/13/21 17:02 Last Admin: 05/13/21 17:25 Dose: 0.5 mg Documented by: Hydromorphone HCl (Hydromorphone 0.5 Mg/0.5 Ml Syringe) 0.5 mg IVPUSH Q1H PRN PRN Reason: Pain Last Admin: 05/15/21 04:01 Dose: 0.5 mg Documented by: Sodium Chloride (Normal Saline) 1,000 mls @ 999 mls/hr IV ASDIRECTED [facility] Last Admin: 05/13/21 17:25 Dose: 999 mls/hr Documented by: Sodium Chloride (Normal Saline) 1,000 mls @ 125 mls/hr IV ASDIRECTED [facility] Last Admin: 05/15/21 05:05 Dose: 125 mls/hr Documented by: Lidocaine HCl (Lidocaine 1% 20 Ml Mdv) 20 ml INJECT ONETIME ONE Stop: 05/13/21 15:30 Last Admin: 05/13/21 17:25 Dose: 20 ml Documented by: Magnesium Hydroxide (Magnesium Hydroxide 400 Mg/5 Ml Susp 30 Ml Cup) 30 ml PO ONETIME ONE Stop: 05/15/21 17:42 Last Admin: 05/15/21 18:15 Dose: 30 ml Documented by: Ondansetron HCl (Ondansetron 4 Mg/2 Ml Sdv) 4 mg IVPUSH ONETIME ONE Stop: 05/13/21 15:38 Last Admin: 05/13/21 17:25 Dose: 4 mg Documented by: Oxycodone/Acetaminophen (Acetaminophen/Oxycodone 325-5 Mg Tab) 1 tab PO Q4H PRN PRN Reason: Pain (severe 7-10) Trimethoprim/Sulfamethoxazole (Sulfamethoxazole/Trimethoprim 800-160 Mg Tab) 1 tab PO BID [facility] Last Admin: 05/17/21 09:52 Dose: 1 tab Documented by: - Exam General: Alert, Oriented, Cooperative, No Acute Distress HEENT: Pupils Equal, EOMI, Mucous Membr. Moist/[place] Lungs: Clear to Auscultation, Normal Respiratory Effort Cardiovascular: Regular Rate, Regular Rhythm GI/Abdominal Exam: Normal Bowel Sounds, Soft, Non-Tender, No Distention Back Exam: Normal Inspection Extremities: No Pedal Edema, Leg Pain Skin: Warm, Dry, Intact Neurological: No New Focal Deficit Psy/Mental Status: Alert, Normal Affect, Normal Mood - Patient Data Lab Results Last 24 hrs: Laboratory Results - last 24 hr 05/19/21 05/19/21 Range/Units 05:45 05:45 WBC 8.4 (4.5-11.0) K/uL RBC 3.20 L (3.30-5.50) M/uL Hgb 10.5 L (12.0-15.0) g/dL Hct 32.2 L (36.0-48.0) % MCV 101 H (80-98) fL MCH 33 H (27-31) pg MCHC 33 (32-36) % Plt Count 228 (150-400) K/uL Sodium 141 (140-148) mmol/L Potassium 4.7 (3.6-5.2) mmol/L Chloride 104 (100-108) mmol/L Carbon Dioxide 26 (21-32) mmol/L Anion Gap 11.4 (5.0-14.0) mmol/L BUN 12 (7-18) mg/dL Creatinine 0.9 (0.6-1.0) mg/dL Est Cr Clr Drug Dosing 50.84 mL/min Estimated GFR (MDRD) > 60 (>60) Glucose 93 (74-106) mg/dL Calcium 8.4 L (8.5-10.1) mg/dL Result Diagrams: 05/19/21 05:45 05/19/21 05:45 Sepsis Event Note - Evaluation Sepsis Screening Result: No Definite Risk - Focused Exam Vital Signs: Vital Signs Temp Temp Pulse Resp BP BP Pulse Ox 05/19/21 18:25 96.6 F L 82 18 125/53 L 94 L 05/19/21 16:00 97.7 F 81 16 132/72 98 05/19/21 11:39 97.7 F 66 18 115/50 L 98 - Problem List & Annotations (1) Fracture of clavicle SNOMED Code(s): 60919379 Code(s): S42.009A - FRACTURE OF UNSP PART OF UNSP CLAVICLE, INIT FOR CLOS FX Status: Acute Current Visit: Yes Qualifiers: Encounter type: initial encounter Clavicle location: sternal end Fracture type: closed Fracture alignment: nondisplaced Laterality: left Qualified Code(s): S42.018A - Nondisplaced fracture of sternal end of left clavicle, initial encounter for closed fracture (2) Fracture of left femur SNOMED Code(s): 01284325, [id number] Code(s): S72.92XA - UNSP FRACTURE OF LEFT FEMUR, INIT ENCNTR FOR CLOSED FRACTURE Status: Acute Current Visit: Yes Qualifiers: Encounter type: initial encounter Femur location: shaft Fracture type: closed Fracture morphology: other fracture Qualified Code(s): S72.392A - Other fracture of shaft of left femur, initial encounter for closed fracture Annotation/Comment:: periprosthetic - Problem List Review Problem List Initiated/Reviewed/Updated: Yes - My Orders Last 24 Hours: My Active Orders 05/19/21 14:14 Wound Care [RC] BID - Plan Plan:: ASSESSMENT AND PLAN LEFT FEMUR FRACTURE -Orthopedic follow-up per Dr. Ireland -Saline lock IV -Pain medication as needed -Will require prison placement LEFT CLAVICULAR FRACTURE -As above SCALP LACERATION - stitches intact, no significant redness or swelling noted -Will need stitches removed likely at 7 days -We will be encouraging her to have this cleaned twice daily HYPERTENSION -Monitor blood pressure during hospitalization -Continue outpatient medications CORONARY ARTERY DISEASE-currently asymptomatic. Status post last angioplasty with stent placement over 1 year ago. -Continue outpatient medications HISTORY OF LUNG CANCER-status post left pneumonectomy MAINTENANCE ISSUES -DVT prophylaxis; SCUDs -GI prophylaxis; not indicated -Baker catheter; not indicated -Nutrition; regular diet -Nicotine dependence; not required CODE STATUS-FULL CODE Plan: No changes to management at this time. We will continue to work with her in PT until we can find placement for her. PT continues to recommend rehabilitation after discharge. DISPOSITION-anticipate discharge to prison PRIMARY CARE PROVIDER-Dr. Dario Rinaldi, DO
[2021-05-19] MEDS: atorvaSTATin 20 MG Tab PO SCH (20:26)
[2021-05-20] MEDS: Acetaminophen/HYDROcodone 325-5 MG Tab PO PRN ×3 (04:28→18:10)
[2021-05-20] MEDS: Cyclobenzaprine 10 MG Tab PO PRN ×2 (04:28→11:27)
[2021-05-20] MEDS: Propranolol 40 MG Tab PO SCH ×2 (08:13→20:16)
[2021-05-20] MEDS: Losartan 50 MG Tab PO SCH (08:13)
[2021-05-20] MEDS: Pantoprazole 40 MG Tab.CR PO SCH ×2 (08:14→15:52)
[2021-05-20] MEDS: Clopidogrel 75 MG Tab PO SCH (08:14)
[2021-05-20] MEDS: Polyethylene Glycol 3350 Powder 17 GM Packet PO SCH (08:14)
[2021-05-20] MEDS: atorvaSTATin 20 MG Tab PO SCH (20:16)
--- NOTE | 2021-05-20 20:29 | PCM.PN ---
- General Info Date of Service: 05/20/21 Admission Dx/Problem (Free Text): Admission Diagnosis/Problem Admission Diagnosis/Problem Pain Left clavicle fracture, medial Left femur periprosthetic fracture, nondisplaced Subjective Update: Ms. Elliott is doing well today. She stated that she had a lot of difficulty with PT today and that she doesn't like to be pushed. She stated that she does not respond well to being pushed she would prefer if people were more gentle with her. However, when they're gentle with her she tends to do significantly less. She has no complaints otherwise. She was seen by Dr. Hobson today who will repeat her imaging and discussed that with her tomorrow. Functional Status: Reports: Pain Controlled, Tolerating Diet, Ambulating, Urinating - Review of Systems General: Reports: No Symptoms HEENT: Reports: No Symptoms Pulmonary: Reports: No Symptoms Cardiovascular: Reports: No Symptoms Gastrointestinal: Reports: No Symptoms Genitourinary: Reports: No Symptoms Musculoskeletal: Reports: Leg Pain (With ambulation and physical therapy) Skin: Reports: No Symptoms Neurological: Reports: No Symptoms Psychiatric: Reports: No Symptoms - Patient Data Vitals - Most Recent: Last Vital Signs Temp 98.1 F 05/20/21 19:33 Pulse 70 05/20/21 19:33 Resp 16 05/20/21 19:33 BP 109/48 L 05/20/21 19:33 Pulse Ox 95 05/20/21 19:33 Weight - Most Recent: 134 lb 4.184 oz I&O - Last 24 Hours: Intake & Output 05/20/21 05/20/21 05/20/21 06:59 14:59 22:59 Intake Total 300 480 120 Balance 300 480 120 Lab Results Last 24 Hours: Laboratory Results - last 24 hr 05/20/21 05/20/21 Range/Units 06:54 06:54 WBC 9.4 (4.5-11.0) K/uL RBC 3.13 L (3.30-5.50) M/uL Hgb 10.2 L (12.0-15.0) g/dL Hct 31.6 L (36.0-48.0) % MCV 101 H (80-98) fL MCH 33 H (27-31) pg MCHC 32 (32-36) % Plt Count 238 (150-400) K/uL Sodium 137 L (140-148) mmol/L Potassium 4.2 (3.6-5.2) mmol/L Chloride 102 (100-108) mmol/L Carbon Dioxide 28 (21-32) mmol/L Anion Gap 11.2 (5.0-14.0) mmol/L BUN 12 (7-18) mg/dL Creatinine 0.9 (0.6-1.0) mg/dL Est Cr Clr Drug Dosing 50.84 mL/min Estimated GFR (MDRD) > 60 (>60) Glucose 96 (74-106) mg/dL Calcium 8.7 (8.5-10.1) mg/dL Med Orders - Current: Current Medications Acetaminophen (Acetaminophen 500 Mg Tab) 1,000 mg PO Q6H PRN PRN Reason: Pain (mild 1-3) Hydrocodone Bitart/Acetaminophen (Acetaminophen/Hydrocodone 325-5 Mg Tab) 1 - 2 tab PO Q4H PRN PRN Reason: Pain Last Admin: 05/20/21 15:52 Dose: 2 tab Documented by: Atorvastatin Calcium (Atorvastatin 20 Mg Tab) 40 mg PO BEDTIME [facility] Last Admin: 05/20/21 20:16 Dose: 40 mg Documented by: Bisacodyl (Bisacodyl 10 Mg Supp) 10 mg RECTAL BID PRN PRN Reason: Constipation Last Admin: 05/16/21 16:56 Dose: 10 mg Documented by: Clopidogrel Bisulfate (Clopidogrel 75 Mg Tab) 75 mg PO DAILY [facility] Last Admin: 05/20/21 08:14 Dose: 75 mg Documented by: Cyclobenzaprine HCl (Cyclobenzaprine 10 Mg Tab) 10 mg PO Q6H PRN PRN Reason: Muscle Spasm - Painful Last Admin: 05/20/21 11:27 Dose: 10 mg Documented by: Losartan Potassium (Losartan 50 Mg Tab) 50 mg PO DAILY [facility] Last Admin: 05/20/21 08:13 Dose: 50 mg Documented by: Ondansetron HCl (Ondansetron 4 Mg/2 Ml Sdv) 4 mg IV Q4H PRN PRN Reason: Nausea/Vomiting Last Admin: 05/16/21 13:46 Dose: 4 mg Documented by: Pantoprazole Sodium (Pantoprazole 40 Mg Tab.Cr) 40 mg PO BIDAC [facility] Last Admin: 05/20/21 15:52 Dose: 40 mg Documented by: Polyethylene Glycol (Polyethylene Glycol 3350 Powder 17 Gm Packet) 17 gm PO D AILY [facility] Last Admin: 05/20/21 08:14 Dose: Not Given Documented by: Propranolol HCl (Propranolol 40 Mg Tab) 40 mg PO BID [facility] Last Admin: 05/20/21 20:16 Dose: 40 mg Documented by: Senna/Docusate Sodium (Docusate Sodium/Sennosides 50-8.6 Mg Tab) 2 tab PO BID [facility] Last Admin: 05/20/21 20:16 Dose: 2 tab Documented by: Discontinued Medications Hydrocodone Bitart/Acetaminophen (Acetaminophen/Hydrocodone 325-5 Mg Tab) 1 tab PO Q4H PRN PRN Reason: Pain (moderate 4-6) Last Admin: 05/15/21 07:45 Dose: 1 tab Documented by: Bacitracin (Bacitracin Oint 1 Gm U/D Packet) 1 dose TOP ONETIME ONE Stop: 05/13/21 15:30 Last Admin: 05/13/21 17:17 Dose: 1 dose Documented by: Diphtheria/Tetanus/Acell Pertussis (Diphtheria,Pertussis(Acell),Tetanus Vaccine 0.5 Ml Syringe) 0.5 ml IM .ONCE ONE Stop: 05/13/21 14:02 Last Admin: 05/13/21 17:17 Dose: 0.5 ml Documented by: Hydromorphone HCl (Hydromorphone 0.5 Mg/0.5 Ml Syringe) 0.5 mg IVPUSH ONETIME ONE Stop: 05/13/21 17:02 Last Admin: 05/13/21 17:25 Dose: 0.5 mg Documented by: Hydromorphone HCl (Hydromorphone 0.5 Mg/0.5 Ml Syringe) 0.5 mg IVPUSH Q1H PRN PRN Reason: Pain Last Admin: 05/15/21 04:01 Dose: 0.5 mg Documented by: Sodium Chloride (Normal Saline) 1,000 mls @ 999 mls/hr IV ASDIRECTED [facility] Last Admin: 05/13/21 17:25 Dose: 999 mls/hr Documented by: Sodium Chloride (Normal Saline) 1,000 mls @ 125 mls/hr IV ASDIRECTED [facility] Last Admin: 05/15/21 05:05 Dose: 125 mls/hr Documented by: Lidocaine HCl (Lidocaine 1% 20 Ml Mdv) 20 ml INJECT ONETIME ONE Stop: 05/13/21 15:30 Last Admin: 05/13/21 17:25 Dose: 20 ml Documented by: Magnesium Hydroxide (Magnesium Hydroxide 400 Mg/5 Ml Susp 30 Ml Cup) 30 ml PO ONETIME ONE Stop: 05/15/21 17:42 Last Admin: 05/15/21 18:15 Dose: 30 ml Documented by: Ondansetron HCl (Ondansetron 4 Mg/2 Ml Sdv) 4 mg IVPUSH ONETIME ONE Stop: 05/13/21 15:38 Last Admin: 05/13/21 17:25 Dose: 4 mg Documented by: Oxycodone/Acetaminophen (Acetaminophen/Oxycodone 325-5 Mg Tab) 1 tab PO Q4H PRN PRN Reason: Pain (severe 7-10) Trimethoprim/Sulfamethoxazole (Sulfamethoxazole/Trimethoprim 800-160 Mg Tab) 1 tab PO BID [facility] Last Admin: 05/17/21 09:52 Dose: 1 tab Documented by: - Exam General: Alert, Oriented, Cooperative, No Acute Distress HEENT: Pupils Equal, EOMI, Mucous Membr. Moist/[place] Neck: Supple, Trachea Midline Lungs: Clear to Auscultation, Normal Respiratory Effort Cardiovascular: Regular Rate, Regular Rhythm GI/Abdominal Exam: Normal Bowel Sounds, Soft, Non-Tender, No Distention Extremities: Leg Pain (Left lower extremity), Other (Swelling of the left clavic ular head) Skin: Warm, Dry, Intact Neurological: No New Focal Deficit Psy/Mental Status: Alert, Normal Affect, Normal Mood - Patient Data Lab Results Last 24 hrs: Laboratory Results - last 24 hr 05/20/21 05/20/21 Range/Units 06:54 06:54 WBC 9.4 (4.5-11.0) K/uL RBC 3.13 L (3.30-5.50) M/uL Hgb 10.2 L (12.0-15.0) g/dL Hct 31.6 L (36.0-48.0) % MCV 101 H (80-98) fL MCH 33 H (27-31) pg MCHC 32 (32-36) % Plt Count 238 (150-400) K/uL Sodium 137 L (140-148) mmol/L Potassium 4.2 (3.6-5.2) mmol/L Chloride 102 (100-108) mmol/L Carbon Dioxide 28 (21-32) mmol/L Anion Gap 11.2 (5.0-14.0) mmol/L BUN 12 (7-18) mg/dL Creatinine 0.9 (0.6-1.0) mg/dL Est Cr Clr Drug Dosing 50.84 mL/min Estimated GFR (MDRD) > 60 (>60) Glucose 96 (74-106) mg/dL Calcium 8.7 (8.5-10.1) mg/dL Result Diagrams: 05/20/21 06:54 05/20/21 06:54 Sepsis Event Note - Evaluation Sepsis Screening Result: Possible Sepsis Risk - Focused Exam Vital Signs: Vital Signs Temp Pulse Resp BP BP Pulse Ox 05/20/21 19:33 98.1 F 70 16 109/48 L 95 05/20/21 15:55 36.9 F L 89 16 146/81 H 99 05/20/21 11:29 99.0 F 71 18 141/58 H 95 - Problem List & Annotations (1) Fracture of clavicle SNOMED Code(s): 21966549 Code(s): S42.009A - FRACTURE OF UNSP PART OF UNSP CLAVICLE, INIT FOR CLOS FX Status: Acute Current Visit: Yes Qualifiers: Encounter type: initial encounter Clavicle location: sternal end Fracture type: closed Fracture alignment: nondisplaced Laterality: left Qualified Code(s): S42.018A - Nondisplaced fracture of sternal end of left clavicle, initial encounter for closed fracture (2) Fracture of left femur SNOMED Code(s): 02943385, [id number] Code(s): S72.92XA - UNSP FRACTURE OF LEFT FEMUR, INIT ENCNTR FOR CLOSED FRACTURE Status: Acute Current Visit: Yes Qualifiers: Encounter type: initial encounter Femur location: shaft Fracture type: closed Fracture morphology: other fracture Qualified Code(s): S72.392A - Other fracture of shaft of left femur, initial encounter for closed fracture Annotation/Comment:: periprosthetic - Problem List Review Problem List Initiated/Reviewed/Updated: Yes - Plan Plan:: ASSESSMENT AND PLAN LEFT FEMUR FRACTURE -Orthopedic follow-up per Dr. Ireland -Saline lock IV -Pain medication as needed -Will require detention placement LEFT CLAVICULAR FRACTURE -As above SCALP LACERATION - stitches intact, no significant redness or swelling noted -Will need stitches removed likely at 7 days -We will be encouraging her to have this cleaned twice daily HYPERTENSION -Monitor blood pressure during hospitalization -Continue outpatient medications Rheumatoid arthritis -Taking home Entanercept, methotrexate, and naproxen -Taking home calcium, vitamin D Macrocytic anemia likely secondary to rheumatoid arthritis/treatment -MCV 101, hemoglobin 10.2 -Will order B12 and folic acid, may need to supplement CORONARY ARTERY DISEASE-currently asymptomatic. Status post last angioplasty with stent placement over 1 year ago. -Continue outpatient medications HISTORY OF LUNG CANCER-status post left pneumonectomy MAINTENANCE ISSUES -DVT prophylaxis; SCUDs -GI prophylaxis; not indicated -Baker catheter; not indicated -Nutrition; regular diet -Nicotine dependence; not required CODE STATUS-FULL CODE Plan: We will continue to work with her in PT until we can find placement for her. PT continues to recommend rehabilitation after discharge. DISPOSITION-anticipate discharge to detention PRIMARY CARE PROVIDER-Dr. Dario Rinaldi,
[2021-05-21] MEDS: Acetaminophen/HYDROcodone 325-5 MG Tab PO PRN ×4 (03:11→18:46)
[2021-05-21] MEDS: Cyclobenzaprine 10 MG Tab PO PRN ×2 (06:22→14:10)
[2021-05-21] MEDS: Pantoprazole 40 MG Tab.CR PO SCH ×2 (07:32→17:17)
[2021-05-21] MEDS: Losartan 50 MG Tab PO SCH (08:08)
[2021-05-21] MEDS: Clopidogrel 75 MG Tab PO SCH (08:08)
[2021-05-21] MEDS: Propranolol 40 MG Tab PO SCH ×2 (08:08→20:17)
[2021-05-21] MEDS: Polyethylene Glycol 3350 Powder 17 GM Packet PO SCH (08:09)
--- NOTE | 2021-05-21 11:04 | CR ---
Hip Min 2V or 3V Lt CLINICAL HISTORY: Periprosthetic fracture FINDINGS: Patient has had previous total hip arthroplasty. There is also been ORIF of the periprosthetic fracture. Appearance is similar to 05/13/2021. Bones are osteoporotic. There is osteoarthritis at the left knee IMPRESSION: No change in periprosthetic fracture
--- NOTE | 2021-05-21 11:46 | PCM.PN ---
- General Info Date of Service: 05/21/21 Subjective Update: No acute events overnight. Slept better last night. Left femur pain is slowly improving. Moving better each day. No significant pain in the clavicle. No headaches. Vital signs have been stable. She thinks she is getting close to being ready to go home with help from her and home care. Functional Status: Reports: Pain Controlled, Tolerating Diet - Review of Systems General: Reports: Weakness Musculoskeletal: Reports: Leg Pain - Patient Data Vitals - Most Recent: Last Vital Signs Temp 36.4 C 05/21/21 10:53 Pulse 67 05/21/21 10:53 Resp 18 05/21/21 10:53 BP 123/51 L 05/21/21 10:53 Pulse Ox 96 05/21/21 10:53 Weight - Most Recent: 60.9 kg I&O - Last 24 Hours: Intake & Output 05/20/21 05/21/21 05/21/21 22:59 06:59 14:59 Intake Total 120 560 360 Balance 120 560 360 Lab Results Last 24 Hours: Laboratory Results - last 24 hr 05/21/21 05/21/21 Range/Units 05:35 05:35 WBC 8.4 (4.5-11.0) K/uL RBC 3.24 L (3.30-5.50) M/uL Hgb 10.6 L (12.0-15.0) g/dL Hct 32.8 L (36.0-48.0) % MCV 101 H (80-98) fL MCH 33 H (27-31) pg MCHC 32 (32-36) % Plt Count 254 (150-400) K/uL Sodium 139 L (140-148) mmol/L Potassium 4.2 (3.6-5.2) mmol/L Chloride 104 (100-108) mmol/L Carbon Dioxide 27 (21-32) mmol/L Anion Gap 12.2 (5.0-14.0) mmol/L BUN 10 (7-18) mg/dL Creatinine 0.9 (0.6-1.0) mg/dL Est Cr Clr Drug Dosing 50.84 mL/min Estimated GFR (MDRD) > 60 (>60) Glucose 90 (74-106) mg/dL Calcium 8.8 (8.5-10.1) mg/dL Vitamin B12 705 (193-986) pg/ml Folate 18.2 (8.6-58.9) ng/ml Med Orders - Current: Current Medications Acetaminophen (Acetaminophen 500 Mg Tab) 1,000 mg PO Q6H PRN PRN Reason: Pain (mild 1-3) Hydrocodone Bitart/Acetaminophen (Acetaminophen/Hydrocodone 325-5 Mg Tab) 1 - 2 tab PO Q4H PRN PRN Reason: Pain Last Admin: 05/21/21 07:34 Dose: 2 tab Documented by: Atorvastatin Calcium (Atorvastatin 20 Mg Tab) 40 mg PO BEDTIME [facility] Last Admin: 05/20/21 20:16 Dose: 40 mg Documented by: Bisacodyl (Bisacodyl 10 Mg Supp) 10 mg RECTAL BID PRN PRN Reason: Constipation Last Admin: 05/16/21 16:56 Dose: 10 mg Documented by: Clopidogrel Bisulfate (Clopidogrel 75 Mg Tab) 75 mg PO DAILY [facility] Last Admin: 05/21/21 08:08 Dose: 75 mg Documented by: Cyclobenzaprine HCl (Cyclobenzaprine 10 Mg Tab) 10 mg PO Q6H PRN PRN Reason: Muscle Spasm - Painful Last Admin: 05/21/21 06:22 Dose: 10 mg Documented by: Losartan Potassium (Losartan 50 Mg Tab) 50 mg PO DAILY [facility] Last Admin: 05/21/21 08:08 Dose: 50 mg Documented by: Ondansetron HCl (Ondansetron 4 Mg/2 Ml Sdv) 4 mg IV Q4H PRN PRN Reason: Nausea/Vomiting Last Admin: 05/16/21 13:46 Dose: 4 mg Documented by: Pantoprazole Sodium (Pantoprazole 40 Mg Tab.Cr) 40 mg PO BIDAC [facility] Last Admin: 05/21/21 07:32 Dose: 40 mg Documented by: Enbrel 50mg Inj ( (Ptom)) 0 each SUBCUT ONETIME ONE Stop: 05/21/21 12:01 Polyethylene Glycol (Polyethylene Glycol 3350 Powder 17 Gm Packet) 17 gm PO DAILY [facility] Last Admin: 05/21/21 08:09 Dose: Not Given Documented by: Propranolol HCl (Propranolol 40 Mg Tab) 40 mg PO BID [facility] Last Admin: 05/21/21 08:08 Dose: 40 mg Documented by: Senna/Docusate Sodium (Docusate Sodium/Sennosides 50-8.6 Mg Tab) 2 tab PO BID [facility] Last Admin: 05/21/21 08:09 Dose: 1 tab Documented by: Discontinued Medications Hydrocodone Bitart/Acetaminophen (Acetaminophen/Hydrocodone 325-5 Mg Tab) 1 tab PO Q4H PRN PRN Reason: Pain (moderate 4-6) Last Admin: 05/15/21 07:45 Dose: 1 tab Documented by: Bacitracin (Bacitracin Oint 1 Gm U/D Packet) 1 dose TOP ONETIME ONE Stop: 05/13/21 15:30 Last Admin: 05/13/21 17:17 Dose: 1 dose Documented by: Diphtheria/Tetanus/Acell Pertussis (Diphtheria,Pertussis(Acell),Tetanus Vaccine 0.5 Ml Syringe) 0.5 ml IM .ONCE ONE Stop: 05/13/21 14:02 Last Admin: 05/13/21 17:17 Dose: 0.5 ml Documented by: Hydromorphone HCl (Hydromorphone 0.5 Mg/0.5 Ml Syringe) 0.5 mg IVPUSH ONETIME ONE Stop: 05/13/21 17:02 Last Admin: 05/13/21 17:25 Dose: 0.5 mg Documented by: Hydromorphone HCl (Hydromorphone 0.5 Mg/0.5 Ml Syringe) 0.5 mg IVPUSH Q1H PRN PRN Reason: Pain Last Admin: 05/15/21 04:01 Dose: 0.5 mg Documented by: Sodium Chloride (Normal Saline) 1,000 mls @ 999 mls[facility] Last Admin: 05/13/21 17:25 Dose: 999 mls/hr Documented by: Sodium Chloride (Normal Saline) 1,000 mls @ 125 mls/hr IV ASDIRECTED [facility] Last Admin: 05/15/21 05:05 Dose: 125 mls/hr Documented by: Lidocaine HCl (Lidocaine 1% 20 Ml Mdv) 20 ml INJECT ONETIME ONE Stop: 05/13/21 15:30 Last Admin: 05/13/21 17:25 Dose: 20 ml Documented by: Magnesium Hydroxide (Magnesium Hydroxide 400 Mg/5 Ml Susp 30 Ml Cup) 30 ml PO ONETIME ONE Stop: 05/15/21 17:42 Last Admin: 05/15/21 18:15 Dose: 30 ml Documented by: Ondansetron HCl (Ondansetron 4 Mg/2 Ml Sdv) 4 mg IVPUSH ONETIME ONE Stop: 05/13/21 15:38 Last Admin: 05/13/21 17:25 Dose: 4 mg Documented by: Oxycodone/Acetaminophen (Acetaminophen/Oxycodone 325-5 Mg Tab) 1 tab PO Q4H PRN PRN Reason: Pain (severe 7-10) Trimethoprim/Sulfamethoxazole (Sulfamethoxazole/Trimethoprim 800-160 Mg Tab) 1 tab PO BID [facility] Last Admin: 05/17/21 09:52 Dose: 1 tab Documented by: - Exam Quality Assessment: No: Supplemental Oxygen General: Alert, Oriented, Cooperative, No Acute Distress Lungs: Normal Respiratory Effort GI/Abdominal Exam: Soft, No Distention Extremities: No Pedal Edema Psy/Mental Status: Alert, Normal Affect - Patient Data Lab Results Last 24 hrs: Laboratory Results - last 24 hr 05/21/21 05/21/21 Range/Units 05:35 05:35 WBC 8.4 (4.5-11.0) K/uL RBC 3.24 L (3.30-5.50) M/uL Hgb 10.6 L (12.0-15.0) g/dL Hct 32.8 L (36.0-48.0) % MCV 101 H (80-98) fL MCH 33 H (27-31) pg MCHC 32 (32-36) % Plt Count 254 (150-400) K/uL Sodium 139 L (140-148) mmol/L Potassium 4.2 (3.6-5.2) mmol/L Chloride 104 (100-108) mmol/L Carbon Dioxide 27 (21-32) mmol/L Anion Gap 12.2 (5.0-14.0) mmol/L BUN 10 (7-18) mg/dL Creatinine 0.9 (0.6-1.0) mg/dL Est Cr Clr Drug Dosing 50.84 mL/min Estimated GFR (MDRD) > 60 (>60) Glucose 90 (74-106) mg/dL Calcium 8.8 (8.5-10.1) mg/dL Vitamin B12 705 (193-986) pg/ml Folate 18.2 (8.6-58.9) ng/ml Result Diagrams: 05/21/21 05:35 05/21/21 05:35 Sepsis Event Note - Evaluation Sepsis Screening Result: No Definite Risk - Focused Exam Vital Signs: Vital Signs Temp Temp Pulse Resp BP BP Pulse Ox 05/21/21 10:53 36.4 C 67 18 123/51 L 96 05/21/21 08:08 120/64 05/21/21 07:00 36.3 C 89 14 120/64 96 05/21/21 03:06 35.4 C L 82 16 124/58 L 97 - Problem List Review Problem List Initiated/Reviewed/Updated: Yes - My Orders Last 24 Hours: My Active Orders 05/21/21 12:00 Patient's Own Medication [Ptom] 0 each SUBCUT ONETIME ONE - Plan Plan:: ASSESSMENT AND PLAN - LEFT FEMUR FRACTURE-periprosthetic fracture. Repeat x-rays today showed stable fracture. -Orthopedic follow-up per Dr. Ireland -Saline lock IV -Pain medication as needed LEFT CLAVICULAR FRACTURE-stable. Pain controlled. -Symptomatic management of pain SCALP LACERATION-no issues. -Remove sutures today HYPERTENSION-stable. -Continue outpatient medications Rheumatoid arthritis -Taking home Entanercept, methotrexate, and naproxen -Taking home calcium, vitamin D Macrocytic anemia likely secondary to rheumatoid arthritis/treatment CORONARY ARTERY DISEASE-currently asymptomatic. Status post last angioplasty with stent placement over 1 year ago. -Continue outpatient medications HISTORY OF LUNG CANCER-status post left pneumonectomy MAINTENANCE ISSUES -DVT prophylaxis; SCUDs -GI prophylaxis; not indicated -Baker catheter; not indicated -Nutrition; regular diet DISPOSITION-anticipate discharge home with home care, possibly as early as tomorrow Maxx Velazquez MD
[2021-05-21] MEDS ORDERED: ETANERCEPT 50 MG/ML SQ ONE (12:00)
[2021-05-21] MEDS ORDERED: ENBREL 50 MG SUBCUT ONE (12:00)
--- NOTE | 2021-05-21 15:19 | PCM.CONSN ---
- General Info Date of Service: 05/20/21 Functional Status: Reports: Tolerating Diet, Urinating - Review of Systems Musculoskeletal: Reports: Shoulder Pain, Leg Pain Skin: Reports: No Symptoms Neurological: Reports: No Symptoms Psychiatric: Reports: No Symptoms Systems Review Comment:: Relatively comfortable at rest and can get into a good position to sleep, persistent sharp pain with motion of left hip - Patient Data Vitals - Most Recent: Last Vital Signs Temp 36.3 C 05/21/21 14:23 Pulse 76 05/21/21 14:23 Resp 18 05/21/21 14:23 BP 99/48 L 05/21/21 14:23 Pulse Ox 96 05/21/21 14:23 Weight - Most Recent: 60.9 kg I&O - Last 24 Hours: Intake & Output 05/21/21 05/21/21 05/21/21 06:59 14:59 22:59 Intake Total 560 620 Balance 560 620 Lab Results Last 24 Hours: Laboratory Results - last 24 hr 05/21/21 05/21/21 Range/Units 05:35 05:35 WBC 8.4 (4.5-11.0) K/uL RBC 3.24 L (3.30-5.50) M/uL Hgb 10.6 L (12.0-15.0) g/dL Hct 32.8 L (36.0-48.0) % MCV 101 H (80-98) fL MCH 33 H (27-31) pg MCHC 32 (32-36) % Plt Count 254 (150-400) K/uL Sodium 139 L (140-148) mmol/L Potassium 4.2 (3.6-5.2) mmol/L Chloride 104 (100-108) mmol/L Carbon Dioxide 27 (21-32) mmol/L Anion Gap 12.2 (5.0-14.0) mmol/L BUN 10 (7-18) mg/dL Creatinine 0.9 (0.6-1.0) mg/dL Est Cr Clr Drug Dosing 50.84 mL/min Estimated GFR (MDRD) > 60 (>60) Glucose 90 (74-106) mg/dL Calcium 8.8 (8.5-10.1) mg/dL Vitamin B12 705 (193-986) pg/ml Folate 18.2 (8.6-58.9) ng/ml Med Orders - Current: Current Medications Acetaminophen (Acetaminophen 500 Mg Tab) 1,000 mg PO Q6H PRN PRN Reason: Pain (mild 1-3) Hydrocodone Bitart/Acetaminophen (Acetaminophen/Hydrocodone 325-5 Mg Tab) 1 - 2 tab PO Q4H PRN PRN Reason: Pain Last Admin: 05/21/21 14:10 Dose: 2 tab Documented by: Atorvastatin Calcium (Atorvastatin 20 Mg Tab) 40 mg PO BEDTIME [facility] Last Admin: 05/20/21 20:16 Dose: 40 mg Documented by: Bisacodyl (Bisacodyl 10 Mg Supp) 10 mg RECTAL BID PRN PRN Reason: Constipation Last Admin: 05/16/21 16:56 Dose: 10 mg Documented by: Clopidogrel Bisulfate (Clopidogrel 75 Mg Tab) 75 mg PO DAILY [facility] Last Admin: 05/21/21 08:08 Dose: 75 mg Documented by: Cyclobenzaprine HCl (Cyclobenzaprine 10 Mg Tab) 10 mg PO Q6H PRN PRN Reason: Muscle Spasm - Painful Last Admin: 05/21/21 14:10 Dose: 10 mg Documented by: Losartan Potassium (Losartan 50 Mg Tab) 50 mg PO DAILY [facility] Last Admin: 05/21/21 08:08 Dose: 50 mg Documented by: Ondansetron HCl (Ondansetron 4 Mg/2 Ml Sdv) 4 mg IV Q4H PRN PRN Reason: Nausea/Vomiting Last Admin: 05/16/21 13:46 Dose: 4 mg Documented by: Pantoprazole Sodium (Pantoprazole 40 Mg Tab.Cr) 40 mg PO BIDAC [facility] Last Admin: 05/21/21 07:32 Dose: 40 mg Documented by: Polyethylene Glycol (Polyethylene Glycol 3350 Powder 17 Gm Packet) 17 gm PO DAILY [facility] Last Admin: 05/21/21 08:09 Dose: Not Given Documented by: Propranolol HCl (Propranolol 40 Mg Tab) 40 mg PO BID [facility] Last Admin: 05/21/21 08:08 Dose: 40 mg Documented by: Senna/Docusate Sodium (Docusate Sodium/Sennosides 50-8.6 Mg Tab) 2 tab PO BID [facility] Last Admin: 05/21/21 08:09 Dose: 1 tab Documented by: Discontinued Medications Hydrocodone Bitart/Acetaminophen (Acetaminophen/Hydrocodone 325-5 Mg Tab) 1 tab PO Q4H PRN PRN Reason: Pain (moderate 4-6) Last Admin: 05/15/21 07:45 Dose: 1 tab Documented by: Bacitracin (Bacitracin Oint 1 Gm U/D Packet) 1 dose TOP ONETIME ONE Stop: 05/13/21 15:30 Last Admin: 05/13/21 17:17 Dose: 1 dose Documented by: Diphtheria/Tetanus/Acell Pertussis (Diphtheria,Pertussis(Acell),Tetanus Vaccine 0.5 Ml Syringe) 0.5 ml IM .ONCE ONE Stop: 05/13/21 14:02 Last Admin: 05/13/21 17:17 Dose: 0.5 ml Documented by: Hydromorphone HCl (Hydromorphone 0.5 Mg/0.5 Ml Syringe) 0.5 mg IVPUSH ONETIME ONE Stop: 05/13/21 17:02 Last Admin: 05/13/21 17:25 Dose: 0.5 mg Documented by: Hydromorphone HCl (Hydromorphone 0.5 Mg/0.5 Ml Syringe) 0.5 mg IVPUSH Q1H PRN PRN Reason: Pain Last Admin: 05/15/21 04:01 Dose: 0.5 mg Documented by: Sodium Chloride (Normal Saline) 1,000 mls @ 999 mls[facility] Last Admin: 05/13/21 17:25 Dose: 999 mls/hr Documented by: Sodium Chloride (Normal Saline) 1,000 mls @ 125 [facility]ls[facility] Last Admin: 05/15/21 05:05 Dose: 125 mls/hr Documented by: Lidocaine HCl (Lidocaine 1% 20 Ml Mdv) 20 ml INJECT ONETIME ONE Stop: 05/13/21 15:30 Last Admin: 05/13/21 17:25 Dose: 20 ml Documented by: Magnesium Hydroxide (Magnesium Hydroxide 400 Mg/5 Ml Susp 30 Ml Cup) 30 ml PO ONETIME ONE Stop: 05/15/21 17:42 Last Admin: 05/15/21 18:15 Dose: 30 ml Documented by: Ondansetron HCl (Ondansetron 4 Mg/2 Ml Sdv) 4 mg IVPUSH ONETIME ONE Stop: 05/13/21 15:38 Last Admin: 05/13/21 17:25 Dose: 4 mg Documented by: Oxycodone/Acetaminophen (Acetaminophen/Oxycodone 325-5 Mg Tab) 1 tab PO Q4H PRN PRN Reason: Pain (severe 7-10) Enbrel 50mg Inj ( (Ptom)) 0 each SUBCUT ONETIME ONE Stop: 05/21/21 12:01 Last Admin: 05/21/21 12:22 Dose: 1 each Documented by: Trimethoprim/Sulfamethoxazole (Sulfamethoxazole/Trimethoprim 800-160 Mg Tab) 1 tab PO BID [facility] Last Admin: 05/17/21 09:52 Dose: 1 tab Documented by: - Exam General: Alert, Oriented Extremities: Joint Swelling (left sternoclavicular joint), Leg Pain, Limited Range of Motion Skin: Warm, Dry, Intact Neurological: No New Focal Deficit Psy/Mental Status: Alert, Normal Affect, Normal Mood Sepsis Event Note - Evaluation Sepsis Screening Result: No Definite Risk - Focused Exam Vital Signs: Vital Signs Temp Temp Pulse Resp BP BP Pulse Ox 05/21/21 14:23 36.3 C 76 18 99/48 L 96 05/21/21 10:53 36.4 C 67 18 123/51 L 96 05/21/21 08:08 120/64 05/21/21 07:00 36.3 C 89 14 120/64 96 Consult PN Assessment/Plan Procedures: Procedures AIRWAY INHALATION TREATMENT (04/12/20) ASSAY OF LACTIC ACID (04/12/20) ASSAY OF MAGNESIUM (04/12/20) ASSAY OF TROPONIN QUANT (04/06/20) BLOOD CULTURE FOR BACTERIA (04/12/20) BREAST TOMOSYNTHESIS BI (11/18/19) COMPLETE CBC W/AUTO DIFF WBC (04/12/20) COMPREHEN METABOLIC PANEL (04/12/20) CT THORAX DX C- (10/11/19) CULTURE OTHR SPECIMN AEROBIC (04/12/20) ELECTROCARDIOGRAM TRACING (04/06/20) EMERGENCY DEPT VISIT (05/02/21) EMERGENCY DEPT VISIT (04/12/20) EMERGENCY DEPT VISIT (04/12/20) EMERGENCY DEPT VISIT (04/09/19) HOSPITAL DISCHARGE DAY (04/12/20) INITIAL HOSPITAL CARE (04/12/20) METABOLIC PANEL TOTAL CA (04/12/20) PROTHROMBIN TIME (04/06/20) PT EVAL HIGH COMPLEX 45 MIN (04/12/20) ROUTINE VENIPUNCTURE (04/12/20) SCR MAMMO BI INCL CAD (11/18/19) SMEAR GRAM STAIN (04/12/20) SUBSEQUENT HOSPITAL CARE (04/12/20) THER/PROPH/DIAG INJ IV PUSH (04/06/20) THER/PROPH/DIAG IV INF INIT (04/12/20) THERAPEUTIC ACTIVITIES (04/12/20) THROMBOPLASTIN TIME PARTIAL (04/06/20) TTE F-UP OR LMTD (01/04/21) TX/PRO/DX INJ NEW DRUG ADDON (04/06/20) ULTRASOUND BREAST LIMITED (11/23/19) URINALYSIS AUTO W/SCOPE (04/12/20) X-RAY EXAM CHEST 1 VIEW (04/12/20) X-RAY EXAM OF FEMUR 2/> (05/02/21) (1) Fracture of clavicle SNOMED Code(s): 75169907 Code(s): S42.009A - FRACTURE OF UNSP PART OF UNSP CLAVICLE, INIT FOR CLOS FX Current Visit: Yes Qualifiers: Encounter type: initial encounter Clavicle location: sternal end Fracture type: closed Fracture alignment: nondisplaced Laterality: left Qualified Code(s): S42.018A - Nondisplaced fracture of sternal end of left clavicle, initial encounter for closed fracture (2) Kavitha-prosthetic femoral shaft fracture SNOMED Code(s): 600087645 Code(s): M97.8XXA - PERIPROSTH FRACTURE AROUND OTHER INTERNAL PROSTH JOINT, INIT; Z96.649 - PRESENCE OF UNSPECIFIED ARTIFICIAL HIP JOINT Current Visit: Yes Problem List Initiated/Reviewed/Updated: Yes Plan: Still limited with mobility on transfers in and out of bed and to bathroom, pain with ROM of left hip, limited weight bearing, difficulty with walker and weight bearing on left arm due to clavicle fracture. Due to persistent severe pain with ROM, etc will re-evaluate fracture in left hip. Plan new x-rays in AM. Continue to look for placement.
--- NOTE | 2021-05-21 15:25 | PCM.CONSN ---
- General Info Date of Service: 05/21/21 Functional Status: Reports: Tolerating Diet, Urinating - Review of Systems General: Reports: No Symptoms Musculoskeletal: Reports: Shoulder Pain, Leg Pain Skin: Reports: No Symptoms Neurological: Reports: No Symptoms Psychiatric: Reports: No Symptoms - Patient Data Vitals - Most Recent: Last Vital Signs Temp 36.3 C 05/21/21 14:23 Pulse 76 05/21/21 14:23 Resp 18 05/21/21 14:23 BP 99/48 L 05/21/21 14:23 Pulse Ox 96 05/21/21 14:23 Weight - Most Recent: 60.9 kg I&O - Last 24 Hours: Intake & Output 05/21/21 05/21/21 05/21/21 06:59 14:59 22:59 Intake Total 560 620 Balance 560 620 Lab Results Last 24 Hours: Laboratory Results - last 24 hr 05/21/21 05/21/21 Range/Units 05:35 05:35 WBC 8.4 (4.5-11.0) K/uL RBC 3.24 L (3.30-5.50) M/uL Hgb 10.6 L (12.0-15.0) g/dL Hct 32.8 L (36.0-48.0) % MCV 101 H (80-98) fL MCH 33 H (27-31) pg MCHC 32 (32-36) % Plt Count 254 (150-400) K/uL Sodium 139 L (140-148) mmol/L Potassium 4.2 (3.6-5.2) mmol/L Chloride 104 (100-108) mmol/L Carbon Dioxide 27 (21-32) mmol/L Anion Gap 12.2 (5.0-14.0) mmol/L BUN 10 (7-18) mg/dL Creatinine 0.9 (0.6-1.0) mg/dL Est Cr Clr Drug Dosing 50.84 mL/min Estimated GFR (MDRD) > 60 (>60) Glucose 90 (74-106) mg/dL Calcium 8.8 (8.5-10.1) mg/dL Vitamin B12 705 (193-986) pg/ml Folate 18.2 (8.6-58.9) ng/ml Med Orders - Current: Current Medications Acetaminophen (Acetaminophen 500 Mg Tab) 1,000 mg PO Q6H PRN PRN Reason: Pain (mild 1-3) Hydrocodone Bitart/Acetaminophen (Acetaminophen/Hydrocodone 325-5 Mg Tab) 1 - 2 tab PO Q4H PRN PRN Reason: Pain Last Admin: 05/21/21 14:10 Dose: 2 tab Documented by: Atorvastatin Calcium (Atorvastatin 20 Mg Tab) 40 mg PO BEDTIME [facility] Last Admin: 05/20/21 20:16 Dose: 40 mg Documented by: Bisacodyl (Bisacodyl 10 Mg Supp) 10 mg RECTAL BID PRN PRN Reason: Constipation Last Admin: 05/16/21 16:56 Dose: 10 mg Documented by: Clopidogrel Bisulfate (Clopidogrel 75 Mg Tab) 75 mg PO DAILY [facility] Last Admin: 05/21/21 08:08 Dose: 75 mg Documented by: Cyclobenzaprine HCl (Cyclobenzaprine 10 Mg Tab) 10 mg PO Q6H PRN PRN Reason: Muscle Spasm - Painful Last Admin: 05/21/21 14:10 Dose: 10 mg Documented by: Losartan Potassium (Losartan 50 Mg Tab) 50 mg PO DAILY [facility] Last Admin: 05/21/21 08:08 Dose: 50 mg Documented by: Ondansetron HCl (Ondansetron 4 Mg/2 Ml Sdv) 4 mg IV Q4H PRN PRN Reason: Nausea/Vomiting Last Admin: 05/16/21 13:46 Dose: 4 mg Documented by: Pantoprazole Sodium (Pantoprazole 40 Mg Tab.Cr) 40 mg PO BIDAC [facility] Last Admin: 05/21/21 07:32 Dose: 40 mg Documented by: Polyethylene Glycol (Polyethylene Glycol 3350 Powder 17 Gm Packet) 17 gm PO DAILY [facility] Last Admin: 05/21/21 08:09 Dose: Not Given Documented by: Propranolol HCl (Propranolol 40 Mg Tab) 40 mg PO BID [facility] Last Admin: 05/21/21 08:08 Dose: 40 mg Documented by: Senna/Docusate Sodium (Docusate Sodium/Sennosides 50-8.6 Mg Tab) 2 tab PO BID [facility] Last Admin: 05/21/21 08:09 Dose: 1 tab Documented by: Discontinued Medications Hydrocodone Bitart/Acetaminophen (Acetaminophen/Hydrocodone 325-5 Mg Tab) 1 tab PO Q4H PRN PRN Reason: Pain (moderate 4-6) Last Admin: 05/15/21 07:45 Dose: 1 tab Documented by: Bacitracin (Bacitracin Oint 1 Gm U/D Packet) 1 dose TOP ONETIME ONE Stop: 05/13/21 15:30 Last Admin: 05/13/21 17:17 Dose: 1 dose Documented by: Diphtheria/Tetanus/Acell Pertussis (Diphtheria,Pertussis(Acell),Tetanus Vaccine 0.5 Ml Syringe) 0.5 ml IM .ONCE ONE Stop: 05/13/21 14:02 Last Admin: 05/13/21 17:17 Dose: 0.5 ml Documented by: Hydromorphone HCl (Hydromorphone 0.5 Mg/0.5 Ml Syringe) 0.5 mg IVPUSH ONETIME ONE Stop: 05/13/21 17:02 Last Admin: 05/13/21 17:25 Dose: 0.5 mg Documented by: Hydromorphone HCl (Hydromorphone 0.5 Mg/0.5 Ml Syringe) 0.5 mg IVPUSH Q1H PRN PRN Reason: Pain Last Admin: 05/15/21 04:01 Dose: 0.5 mg Documented by: Sodium Chloride (Normal Saline) 1,000 mls @ 999 mls/hr IV [facility]RECTED [facility] Last Admin: 05/13/21 17:25 Dose: 999 mls/hr Documented by: Sodium Chloride (Normal Saline) 1,000 mls @ 125 [facility]ls[facility] Last Admin: 05/15/21 05:05 Dose: 125 mls/hr Documented by: Lidocaine HCl (Lidocaine 1% 20 Ml Mdv) 20 ml INJECT ONETIME ONE Stop: 05/13/21 15:30 Last Admin: 05/13/21 17:25 Dose: 20 ml Documented by: Magnesium Hydroxide (Magnesium Hydroxide 400 Mg/5 Ml Susp 30 Ml Cup) 30 ml PO ONETIME ONE Stop: 05/15/21 17:42 Last Admin: 05/15/21 18:15 Dose: 30 ml Documented by: Ondansetron HCl (Ondansetron 4 Mg/2 Ml Sdv) 4 mg IVPUSH ONETIME ONE Stop: 05/13/21 15:38 Last Admin: 05/13/21 17:25 Dose: 4 mg Documented by: Oxycodone/Acetaminophen (Acetaminophen/Oxycodone 325-5 Mg Tab) 1 tab PO Q4H PRN PRN Reason: Pain (severe 7-10) Enbrel 50mg Inj ( (Ptom)) 0 each SUBCUT ONETIME ONE Stop: 05/21/21 12:01 Last Admin: 05/21/21 12:22 Dose: 1 each Documented by: Trimethoprim/Sulfamethoxazole (Sulfamethoxazole/Trimethoprim 800-160 Mg Tab) 1 tab PO BID [facility] Last Admin: 05/17/21 09:52 Dose: 1 tab Documented by: - Exam General: Alert, Oriented Extremities: Leg Pain, Limited Range of Motion Skin: Warm, Dry, Intact Neurological: No New Focal Deficit Psy/Mental Status: Alert, Normal Affect, Normal Mood Sepsis Event Note - Evaluation Sepsis Screening Result: No Definite Risk - Focused Exam Vital Signs: Vital Signs Temp Temp Pulse Resp BP BP Pulse Ox 05/21/21 14:23 36.3 C 76 18 99/48 L 96 05/21/21 10:53 36.4 C 67 18 123/51 L 96 05/21/21 08:08 120/64 05/21/21 07:00 36.3 C 89 14 120/64 96 Consult PN Assessment/Plan Procedures: Procedures AIRWAY INHALATION TREATMENT (04/12/20) ASSAY OF LACTIC ACID (04/12/20) ASSAY OF MAGNESIUM (04/12/20) ASSAY OF TROPONIN QUANT (04/06/20) BLOOD CULTURE FOR BACTERIA (04/12/20) BREAST TOMOSYNTHESIS BI (11/18/19) COMPLETE CBC W/AUTO DIFF WBC (04/12/20) COMPREHEN METABOLIC PANEL (04/12/20) CT THORAX DX C- (10/11/19) CULTURE OTHR SPECIMN AEROBIC (04/12/20) ELECTROCARDIOGRAM TRACING (04/06/20) EMERGENCY DEPT VISIT (05/02/21) EMERGENCY DEPT VISIT (04/12/20) EMERGENCY DEPT VISIT (04/12/20) EMERGENCY DEPT VISIT (04/09/19) HOSPITAL DISCHARGE DAY (04/12/20) INITIAL HOSPITAL CARE (04/12/20) METABOLIC PANEL TOTAL CA (04/12/20) PROTHROMBIN TIME (04/06/20) PT EVAL HIGH COMPLEX 45 MIN (04/12/20) ROUTINE VENIPUNCTURE (04/12/20) SCR MAMMO BI INCL CAD (11/18/19) SMEAR GRAM STAIN (04/12/20) SUBSEQUENT HOSPITAL CARE (04/12/20) THER/PROPH/DIAG INJ IV PUSH (04/06/20) THER/PROPH/DIAG IV INF INIT (04/12/20) THERAPEUTIC ACTIVITIES (04/12/20) THROMBOPLASTIN TIME PARTIAL (04/06/20) TTE F-UP OR LMTD (01/04/21) TX/PRO/DX INJ NEW DRUG ADDON (04/06/20) ULTRASOUND BREAST LIMITED (11/23/19) URINALYSIS AUTO W/SCOPE (04/12/20) X-RAY EXAM CHEST 1 VIEW (04/12/20) X-RAY EXAM OF FEMUR 2/> (05/02/21) (1) Fracture of clavicle SNOMED Code(s): 04713564 Code(s): S42.009A - FRACTURE OF UNSP PART OF UNSP CLAVICLE, INIT FOR CLOS FX Current Visit: Yes Qualifiers: Encounter type: initial encounter Clavicle location: sternal end Fracture type: closed Fracture alignment: nondisplaced Laterality: left Qualified Code(s): S42.018A - Nondisplaced fracture of sternal end of left clavicle, initial encounter for closed fracture (2) Kavitha-prosthetic femoral shaft fracture SNOMED Code(s): 978452386 Code(s): M97.8XXA - PERIPROSTH FRACTURE AROUND OTHER INTERNAL PROSTH JOINT, INIT; Z96.649 - PRESENCE OF UNSPECIFIED ARTIFICIAL HIP JOINT Current Visit: Yes Problem List Initiated/Reviewed/Updated: Yes Plan: New x-rays reviewed - no evidence of loose hardware or change in position of fracture. No change in recommendations, no surgery planned. OK to continue with PWB as tolerated on left leg. Poor progress with transfers and ambulation. Still working on placement.
[2021-05-21] MEDS: atorvaSTATin 20 MG Tab PO SCH (20:18)
[2021-05-22] MEDS: Cyclobenzaprine 10 MG Tab PO PRN ×2 (02:52→08:50)
[2021-05-22] MEDS: Acetaminophen/HYDROcodone 325-5 MG Tab PO PRN ×3 (05:23→14:11)
[2021-05-22] MEDS: Pantoprazole 40 MG Tab.CR PO SCH (07:35)
[2021-05-22] MEDS: Polyethylene Glycol 3350 Powder 17 GM Packet PO SCH (08:49)
[2021-05-22] MEDS: Losartan 50 MG Tab PO SCH (08:50)
[2021-05-22] MEDS: Clopidogrel 75 MG Tab PO SCH (08:50)
[2021-05-22] MEDS: Propranolol 40 MG Tab PO SCH (08:50)
--- NOTE | 2021-05-22 12:33 | PCM.DCSUM1 ---
Discharge Summary - Hospital Course Brief History: 76-year-old female with history of rheumatoid arthritis and previous left hip replacement who presented with left shoulder and hip pain after falling at home. She is admitted for management of a periprosthetic left femur fracture as well as left clavicle fracture. Diagnosis: Stroke: No - Discharge Data Discharge Date: 05/22/21 Discharge Disposition: Home, W Home Health Agency 06 Condition: Good - Referral to Home Health Date of Face to Face Encounter: 05/22/21 Reason for Homebound Status: femur fracture, minimal weight bearing Primary Care Physician: Hiwot Bishop MD Skilled Need: PT, OT and home health aide - Discharge Diagnosis/Problem(s) (1) Kavitha-prosthetic femoral shaft fracture SNOMED Code(s): 034416255 ICD Code: M97.8XXA - PERIPROSTH FRACTURE AROUND OTHER INTERNAL PROSTH JOINT, INIT; Z96.649 - PRESENCE OF UNSPECIFIED ARTIFICIAL HIP JOINT Status: Acute (2) Fracture of clavicle SNOMED Code(s): 93727422 ICD Code: S42.009A - FRACTURE OF UNSP PART OF UNSP CLAVICLE, INIT FOR CLOS FX Status: Acute Qualifiers: Encounter type: initial encounter Clavicle location: sternal end Fracture type: closed Fracture alignment: nondisplaced Laterality: left Qualified Code(s): S42.018A - Nondisplaced fracture of sternal end of left clavicle, initial encounter for closed fracture (3) Laceration of scalp SNOMED Code(s): 721605352 ICD Code: S01.01XA - LACERATION WITHOUT FOREIGN BODY OF SCALP, INITIAL ENCOUNTER Status: Acute Qualifiers: Encounter type: initial encounter Qualified Code(s): S01.01XA - Laceration without foreign body of scalp, initial encounter (4) Rheumatoid arthritis SNOMED Code(s): 86380070 ICD Code: M06.9 - RHEUMATOID ARTHRITIS, UNSPECIFIED Status: Chronic Qualifiers: Rheumatoid arthritis location: multiple sites Rheumatoid factor presence: unspecified presence Qualified Code(s): M06.9 - Rheumatoid arthritis, unspecified - Patient Summary/Data Consults: Consultations 05/13/21 21:12 Consult to Physician [CONS] Routine Consulting Provider: Jim Ireland Courtesy Call Completed to Consulting Physician: No: not available 05/14/21 11:25 Consult to Physical Therapy [PT Evaluation and Treatment] [CONS] Routine Please Evaluate and Treat. PT Reason for Consult: Ambulation Special Instructions: left clavicle fracture, left femur fracture (non-dis placed), sling to left arm, PWB on left leg This query below is only for informational purposes and is not editable. Admission Diagnosis/Problem: Pain 05/14/21 11:28 Consult to Occupational Therapy [OT Evaluation and Treatment] [CONS] Routine Please Evaluate and Treat. OT Reason for Consult: ADL's Special Instructions: left clavicle fracture This query below is only for informational purposes and is not editable. Admission Diagnosis/Problem: Pain Hospital Course: Dolores presented to the emergency room after falling at home and reporting pain in her left thigh as well as left clavicle area. There was blood in the posterior portion of her head noted. Work-up in the emergency room revealed a laceration of the posterior scalp which was sutured. X-ray imaging suggested a fracture of the left clavicle near the sternum as well as a periprosthetic fracture of the left femur. The orthopedic team was consulted and felt that both of these were nonsurgical fractures. The patient was admitted to the hospital for symptomatic management of pain and initiation of physical therapy. Over the first couple of days we did make good progress with pain control but unfortunately the patient was not moving very well with physical therapy. She had difficulty with the nearly nonweightbearing on the left leg especially when combined with the clavicle fracture. We were not able to make enough progress that we thought she would be safe at home and we did transition to looking for subacute rehab. Unfortunately no beds were available for subacute rehab in any of the surrounding towns or locally. We continued pain control and physical therapy throughout the course of the hospital stay and did make good progress over the weekend and into the early part of the week leading up to discharge. Repeat x-rays of the left femur were obtained the day prior to discharge and showed stable fracture with no changes or malalignment. Patient has made enough progress that she and her both feel comfortable at home. She is getting around well with a walker with just a standby assist. Her pain has been well controlled. Sutures have been removed. She was interested in home care to help ease her transition home and this will be arranged. She is stable and safe for discharge home at this time. She will have early follow-up with orthopedics and primary care. - Patient Instructions Diet: Regular Diet as Tolerated Activity: As Tolerated, Partial Weight Bearing (left leg ) Driving: Do Not Drive (while you are taking pain pills ) Showering/Bathing: May Shower Notify Provider of: Fever, Increased Pain Other/Special Instructions: 1. You were in the hospital for management of a periprosthetic left femur fracture as well as a left clavicle fracture and scalp laceration. Your condition seems to be improving with therapies and symptomatic management provided here in the hospital. You should continue to be partial weightbearing on the left leg until after your follow-up with the orthopedic team. You may use acetaminophen or naproxen for mild pain. I have provided a prescription for hydrocodone to use for more intense pain. If you are planning physical therapy or some other outing you should consider taking a pain pill 30 to 60 minutes prior to the activity to help reduce the pain. 2. I have placed a referral to home health care services. They will provide physical and occupational therapy as well as a home health aide to ease your transition home after the hospital stay. - Discharge Plan *PRESCRIPTION DRUG MONITORING PROGRAM REVIEWED*: Not Applicable *COPY OF PRESCRIPTION DRUG MONITORING REPORT IN PATIENT MELONY: Not Applicable Prescriptions/Med Rec: Cyclobenzaprine [Flexeril] 10 mg PO Q8H PRN #10 tablet PRN Reason: Muscle Spasm - Painful Acetaminophen/HYDROcodone [HYDROcodone-Acetaminophen 5-325 MG *] 1 tab PO Q4H PRN #30 each PRN Reason: Pain Home Medications: Home Meds Calcium Carb, Citrate/Vit D3 [Calcium + D3 ER Tablet] 600 mg PO BID 04/09/19 [History] Etanercept [Enbrel] 50 mg SQ ASDIRECTED 04/09/19 [History] Methotrexate 4 tab PO Q7D 04/09/19 [History] Clopidogrel [Plavix] 75 mg PO DAILY 05/02/21 [History] Losartan [Cozaar] 1 tab PO DAILY 05/13/21 [History] Naproxen 1 tab PO BID 05/13/21 [History] Pantoprazole Sodium [Protonix] 1 tab PO BID 05/13/21 [History] Propranolol [Inderal] 1 tab PO BID 05/13/21 [History] atorvaSTATin [Lipitor] 1 tab PO BEDTIME 05/13/21 [History] Acetaminophen/HYDROcodone [HYDROcodone-Acetaminophen 5-325 MG *] 1 tab PO Q4H PRN #30 each 05/22/21 [Rx] Cyclobenzaprine [Flexeril] 10 mg PO Q8H PRN #10 tablet 05/22/21 [Rx] Oxygen Therapy Mode: Room Air Patient Handouts: Acetaminophen; Hydrocodone tablets or capsules, Clavicle Fracture, [id number], Understanding Your Risk for Falls Referrals: Hiwot Bishop MD [Primary Care Provider] - 05/24/21 1:40 pm (Please arrive 15 minutes early to register for your appointment) Jim Ireland MD [Physician] - 06/07/21 10:00 am (Please arrive at 9:30 for X ray prior to your appointment with MD.) - Discharge Summary/Plan Comment DC Time >30 min.: Yes Total # of Minutes for Discharge Time: 45-set up home care - Patient Data Vitals - Most Recent: Last Vital Signs Temp 36.3 C 05/22/21 11:39 Pulse 61 05/22/21 11:39 Resp 16 05/22/21 11:39 BP 112/55 L 05/22/21 11:39 Pulse Ox 99 05/22/21 11:39 Weight - Most Recent: 60.9 kg I&O - Last 24 hours: Intake & Output 05/21/21 05/22/21 05/22/21 22:59 06:59 14:59 Intake Total 300 720 Balance 300 720 Med Orders - Current: Current Medications Acetaminophen (Acetaminophen 500 Mg Tab) 1,000 mg PO Q6H PRN PRN Reason: Pain (mild 1-3) Hydrocodone Bitart/Acetaminophen (Acetaminophen/Hydrocodone 325-5 Mg Tab) 1 - 2 tab PO Q4H PRN PRN Reason: Pain Last Admin: 05/22/21 10:20 Dose: 1 tab Documented by: Atorvastatin Calcium (Atorvastatin 20 Mg Tab) 40 mg PO BEDTIME MICHELLE Last Admin: 05/21/21 20:18 Dose: 40 mg Documented by: Bisacodyl (Bisacodyl 10 Mg Supp) 10 mg RECTAL BID PRN PRN Reason: Constipation Last Admin: 05/16/21 16:56 Dose: 10 mg Documented by: Clopidogrel Bisulfate (Clopidogrel 75 Mg Tab) 75 mg PO DAILY MICHELLE Last Admin: 05/22/21 08:50 Dose: 75 mg Documented by: Cyclobenzaprine HCl (Cyclobenzaprine 10 Mg Tab) 10 mg PO Q6H PRN PRN Reason: Muscle Spasm - Painful Last Admin: 05/22/21 08:50 Dose: 10 mg Documented by: Losartan Potassium (Losartan 50 Mg Tab) 50 mg PO DAILY [facility] Last Admin: 05/22/21 08:50 Dose: 50 mg Documented by: Ondansetron HCl (Ondansetron 4 Mg/2 Ml Sdv) 4 mg IV Q4H PRN PRN Reason: Nausea/Vomiting Last Admin: 05/16/21 13:46 Dose: 4 mg Documented by: Pantoprazole Sodium ([facility] 40 [facility] Tab.Cr) [facility] Last Admin: 05/22/21 07:35 Dose: 40 mg Documented by: Polyethylene Glycol (Polyethylene Glycol 3350 Powder 17 Gm Packet) 17 gm PO DAILY [facility] Last Admin: 05/22/21 08:49 Dose: Not Given Documented by: Propranolol HCl (Propranolol 40 Mg Tab) 40 mg PO BID [facility] Last Admin: 05/22/21 08:50 Dose: 40 mg Documented by: Senna/Docusate Sodium (Docusate Sodium/Sennosides 50-8.6 Mg Tab) 2 tab PO BID [facility] Last Admin: 05/22/21 08:49 Dose: Not Given Documented by: Discontinued Medications Hydrocodone Bitart/Acetaminophen (Acetaminophen/Hydrocodone 325-5 Mg Tab) 1 tab PO Q4H PRN PRN Reason: Pain (moderate 4-6) Last Admin: 05/15/21 07:45 Dose: 1 tab Documented by: Bacitracin (Bacitracin Oint 1 Gm U/D Packet) 1 dose TOP ONETIME ONE Stop: 05/13/21 15:30 Last Admin: 05/13/21 17:17 Dose: 1 dose Documented by: Diphtheria/Tetanus/Acell Pertussis (Diphtheria,Pertussis(Acell),Tetanus Vaccine 0.5 Ml Syringe) 0.5 ml IM .ONCE ONE Stop: 05/13/21 14:02 Last Admin: 05/13/21 17:17 Dose: 0.5 ml Documented by: Hydromorphone HCl (Hydromorphone 0.5 Mg/0.5 Ml Syringe) 0.5 mg IVPUSH ONETIME ONE Stop: 05/13/21 17:02 Last Admin: 05/13/21 17:25 Dose: 0.5 mg Documented by: Hydromorphone HCl (Hydromorphone 0.5 Mg/0.5 Ml Syringe) 0.5 mg IVPUSH Q1H PRN PRN Reason: Pain Last Admin: 05/15/21 04:01 Dose: 0.5 mg Documented by: Sodium Chloride (Normal Saline) 1,000 mls @ 999 mls/hr IV ASDIRECTED [facility] Last Admin: 05/13/21 17:25 Dose: 999 mls/hr Documented by: Sodium Chloride (Normal Saline) 1,000 mls @ 125 mls/hr IV ASDIRECTED [facility] Last Admin: 05/15/21 05:05 Dose: 125 mls/hr Documented by: Lidocaine HCl (Lidocaine 1% 20 Ml Mdv) 20 ml INJECT ONETIME ONE Stop: 05/13/21 15:30 Last Admin: 05/13/21 17:25 Dose: 20 ml Documented by: Magnesium Hydroxide (Magnesium Hydroxide 400 Mg/5 Ml Susp 30 Ml Cup) 30 ml PO ONETIME ONE Stop: 05/15/21 17:42 Last Admin: 05/15/21 18:15 Dose: 30 ml Documented by: Ondansetron HCl (Ondansetron 4 Mg/2 Ml Sdv) 4 mg IVPUSH ONETIME ONE Stop: 05/13/21 15:38 Last Admin: 05/13/21 17:25 Dose: 4 mg Documented by: Oxycodone/Acetaminophen (Acetaminophen/Oxycodone 325-5 Mg Tab) 1 tab PO Q4H PRN PRN Reason: Pain (severe 7-10) Enbrel 50mg Inj ( (Ptom)) 0 each SUBCUT ONETIME ONE Stop: 05/21/21 12:01 Last Admin: 05/21/21 12:22 Dose: 1 each Documented by: Trimethoprim/Sulfamethoxazole (Sulfamethoxazole/Trimethoprim 800-160 Mg Tab) 1 tab PO BID [facility] Last Admin: 05/17/21 09:52 Dose: 1 tab Documented by:
== END 2021-05-22 14:52 | disposition home health service (06) | DRG 559 ==
LOC: JP.ED 12:43 → JP.MS 21:08
PROVIDERS: ADMIT Family Medicine; ATTEND Internal Medicine
DX: S72.8X2A Other fracture of left femur, initial encounter for closed fracture (principal); S42.012A Anterior displaced fracture of sternal end of left clavicle, initial encounter for closed fracture; M97.02XA Periprosthetic fracture around internal prosthetic left hip joint, initial encounter; W18.39XA Other fall on same level, initial encounter; S72.92XA Unspecified fracture of left femur, initial encounter for closed fracture; H54.7 Unspecified visual loss; I10 Essential (primary) hypertension; Z95.5 Presence of coronary angioplasty implant and graft; Z90.2 Acquired absence of lung [part of]; K21.9 Gastro-esophageal reflux disease without esophagitis; K59.09 Other constipation; S42.018A Nondisplaced fracture of sternal end of left clavicle, initial encounter for closed fracture; W19.XXXA Unspecified fall, initial encounter; M06.9 Rheumatoid arthritis, unspecified; Z96.642 Presence of left artificial hip joint; S01.01XA Laceration without foreign body of scalp, initial encounter; Z96.641 Presence of right artificial hip joint; Z85.118 Personal history of other malignant neoplasm of bronchus and lung; Z87.891 Personal history of nicotine dependence; Y92.009 Unspecified place in unspecified non-institutional (private) residence as the place of occurrence of the external cause; Z79.02 Long term (current) use of antithrombotics/antiplatelets; Z79.899 Other long term (current) drug therapy
CPT/HCPCS: 12002; 36415; 70450; 71250; 73000; 73552; 80053; 85025; 90471; 90715; 96374; 96375; 99285; J1170; J2405; J7030; 73502-26-LT; 73502-LT; 80048; 81001; 82607; 82746; 85027; 97110-GP; 97116-GP; 97140-GP; 97163-GP; 97165-GO; 97530-GP; 97535-GO; 97535-GP; A9270-GY

== ENCOUNTER 2022-04-17 16:39 | Emergency (ER) | payer MEDICARE | END 2022-04-17 19:30 | disposition home or self-care (01) | LOC: JP.ED 16:39 | DX: N30.01 Acute cystitis with hematuria (principal); K21.9 Gastro-esophageal reflux disease without esophagitis; I10 Essential (primary) hypertension; Z79.899 Other long term (current) drug therapy; Z20.822 Contact with and (suspected) exposure to COVID-19 | CPT/HCPCS: 81001; 87086; 99284; U0002; 99283 ==

== ENCOUNTER 2024-07-05 10:50 | Emergency (ER) | payer MEDICARE ==
[2024-07-05 11:42] LABS: CORONAVIRUS COVID-19 NAA NEGATIVE (NEGATIVE); INFLUENZA A NAA NEGATIVE (NEGATIVE); INFLUENZA B NAA NEGATIVE (NEGATIVE); RESPIRATORY SYNCYTIAL VIR NAA NEGATIVE (NEGATIVE)
[2024-07-05 12:41] LABS: HEMATOCRIT 39.7 % (34.3-46.0); HEMOGLOBIN 14.2 g/dL (11.2-15.5); MEAN CORPUSCULAR HGB CONC 35.8 g/dL (31.6-35.5); MEAN CORPUSCULAR VOLUME 97.8 fL (81.4-99.0); PLATELET COUNT,PLT 109 K/uL (130-375); RED BLOOD CELL COUNT 4.06 M/uL (3.77-5.24)
[2024-07-05 12:59] LABS: BAND PERCENT MAN 2 % (5-11); LYMPHOCYTES ABSOLUTE MAN 2.25 K/uL (0.8-3.3); LYMPHOCYTES PERCENT MAN 45 % (24-44); MONOCYTES ABSOLUTE MAN 0.45 K/uL (0.20-0.90); MONOCYTES PERCENT MAN 9 % (2-6); SEG NEUTROPHILS PERCENT MAN 44 % (36-66)
[2024-07-05 13:00] LABS: ATYPICAL LYMPHOCYTES MODERATE
[2024-07-05 13:12] LABS: CALCIUM 9.2 mg/dL (8.5-10.1); CREATININE 0.9 mg/dL (0.6-1.0); EST CRCL DRUG DOSING (CG) 43.9 mL/min; POTASSIUM,K 4.1 mmol/L (3.6-5.2)
[2024-07-05 13:13] LABS: ANION GAP 13.1 mmol/L (5.0-14.0)
[2024-07-05 13:14] LABS: ALBUMIN 3.4 g/dL (3.4-5.0); BILIRUBIN DIRECT 0.11 mg/dL (0.0-0.2); BILIRUBIN INDIRECT 0.39; BILIRUBIN TOTAL 0.5 mg/dL (0.2-1.0); PROTEIN TOTAL,TP 6.8 g/dL (6.4-8.2)
[2024-07-05 13:49] LABS: LYME AB IgG Negative (Negative)
[2024-07-05 13:50] LABS: LYME AB IgM Positive (Negative)
== END 2024-07-05 14:06 | disposition home or self-care (01) ==
LOC: JP.ED 10:50
DX: A79.82 Anaplasmosis [A. phagocytophilum] (principal); I10 Essential (primary) hypertension; E78.00 Pure hypercholesterolemia, unspecified; I25.10 Atherosclerotic heart disease of native coronary artery without angina pectoris; K21.9 Gastro-esophageal reflux disease without esophagitis; Z79.82 Long term (current) use of aspirin; Z79.899 Other long term (current) drug therapy
CPT/HCPCS: 0241U; 36415; 80048; 80076; 83605; 85025; 86308; 86617; 86618; 87468; 87469; 87484; 87798; 99284

== ENCOUNTER 2024-07-17 10:45 | Emergency (ER) | payer MEDICARE | END 2024-07-17 13:23 | disposition home or self-care (01) | LOC: JP.ED 10:45 | DX: A69.20 Lyme disease, unspecified (principal); I10 Essential (primary) hypertension; I25.10 Atherosclerotic heart disease of native coronary artery without angina pectoris; I25.2 Old myocardial infarction; E78.00 Pure hypercholesterolemia, unspecified; K21.9 Gastro-esophageal reflux disease without esophagitis; Z95.5 Presence of coronary angioplasty implant and graft; Z79.82 Long term (current) use of aspirin; Z79.899 Other long term (current) drug therapy | CPT/HCPCS: 99284 ==

== ENCOUNTER 2024-12-28 06:28 | Emergency (ER) | payer MEDICARE ==
[2024-12-28] MEDS: EPINEPHrine 1:10,000 1 MG/10 ML Syringe IV ONE ×3 (06:37→06:46)
[2024-12-28] MEDS: Sodium Chloride 0.9% 1,000 ML IV ONE (06:40)
[2024-12-28] MEDS: Sodium Bicarbonate 8.4% 50 MEQ/50 ML Syringe IV ONE (06:50)
[2024-12-28 06:53] LABS: BASE EXCESS ARTERIAL -18.8 mm/L; METHEMOGLOBIN 0.7 %; O2 SATURATION ARTERIAL 93.3 % (95.0-98.0); OXYHEMOGLOBIN 92.8 %; TOTAL HEMOGLOBIN 13.9 g/dL (12.0-16.0)
[2024-12-28 06:54] LABS: CARBOXYHEMOGLOBIN < 0.5 % (0.0-1.6); PCO2 ARTERIAL 71.2 mmHg (35.0-42.0)
== END 2024-12-28 06:54 | disposition expired ==
LOC: JP.ED 06:28
DX: I46.9 Cardiac arrest, cause unspecified (principal)
CPT/HCPCS: 31500; 36680; 82803; 92950; 96374; 99282; 99285; J0171; J7030